=== PATIENT | female | born 1935 | race Caucasian/White ===

== ENCOUNTER 2016-08-31 18:56 | Inpatient (IN) | payer MEDICARE ==
[~2016-08-31] VITALS: Ht 165.1 cm; Wt 66.7 kg
[2016-08-31 19:45] LABS: BASO # 0.1 x10^3/uL (0.0-0.2); BASO % 1 % (0-3); EOS # 0.3 x10^3/uL (0.0-0.7); EOS % 3 % (0-3); HEMATOCRIT 45.3 % (36.0-47.0); LYMPH # 2.8 x10^3/uL (1.0-4.8); LYMPH % 28 % (24-48); MEAN CORPUSCULAR HEMOGLOBIN 31 pg (25-35); MEAN CORPUSCULAR HGB CONC 33 g/dL (31-37); MEAN CORPUSCULAR VOLUME 95 fL (79-100); MONO % 10 % (0-9); NEUT # 5.9 x10^3uL (1.8-7.7); NEUT % 59 % (31-73); PLATELET COUNT 220 x10^3/uL (140-400); RED BLOOD COUNT 4.79 x10^6/uL (3.50-5.40); RED CELL DISTRIBUTION WIDTH 13.6 % (11.5-14.5)
[2016-08-31 19:59] LABS: ALBUMIN 3.5 g/dL (3.4-5.0); ALBUMIN/GLOBULIN RATIO 0.9 (1.0-1.7); CALCIUM 9.1 mg/dL (8.5-10.1); GFR 53.2; POTASSIUM 3.7 mmol/L (3.5-5.1); TOTAL PROTEIN 7.2 g/dL (6.4-8.2)
[2016-08-31 20:24] LABS: BILIRUBIN,URINE NEG (NEG); CLARITY,URINE CLEAR; COLOR,URINE YELLOW; GLUCOSE,URINE NEG (NEG); NITRITE,URINE NEG (NEG); UROBILINOGEN,URINE 0.2 mg/dL (0.2 mg/dL)
[2016-08-31 20:25] LABS: AMORPHOUS SEDIMENT,UR PRESENT /HPF; BACTERIA,URINE 0 /HPF (0-FEW); HYALINE CASTS, URINE OCC /HPF; SQUAMOUS EPITHELIAL CELL,UR OCC /LPF
[2016-08-31] MEDS ORDERED: ZIPRASIDONE IM 20 MG VIAL. IM ONE (20:30)
--- NOTE | 2016-08-31 20:38 | PHYS DOC ---
General Chief Complaint: PSYCH EVALUATION Stated Complaint: PSYCH Time Seen by MD: 19:11 Source: patient, custodial records Problems: History of Present Illness Initial Comments Patient here for geriatric psychiatry screening. Patient is awake and alert but really doesn't know why she is here today. She is not sure how she got here. She is wake, alert, pleasant, and cooperative with commands, but really verbalizes in a nonsensical fashion. She denies any specific medical complaints. She denies any fever or chills, URI symptoms, or cough. She has no chest pain or shortness of breath. No nausea vomiting or abdominal pain. No change amount or bladder habits she denies any focal extremity or neurologic complaints. According to the geriatric psychiatry intake form, the patient. He has dementia. She was combative with staff during routine care today and apparently was referred here for further evaluation. As noted, the patient herself is really disoriented and unable to dissipate any further history. There is no further information available regarding history of present illness, associated factors, increase or decrease in factors, her care rendered for this prior to arrival in the ER. Patient's past medical history according to her custodial record is positive for hypothyroidism, history of pulmonary emboli , TIA, urinary continence, OCD, UT, diverticulitis, arthritis, pancreatitis. She has no dementia as previously described. In reviewing her meds she does not appear to be on any blood thinners. She is a nonsmoker and nonuser of ethanol. It appears that she is able to get up and around independently at the nursing facility. Allergies: Coded Allergies: Sulfa (Sulfonamide Antibiotics) (Verified Allergy, Unknown, 08/31/16) ciprofloxacin (Verified Allergy, Unknown, 08/31/16) Past Medical History Medical History: CVA/TIA/stroke, dementia, heart attack, other Social History Smoker: non-smoker Alcohol: none Review of Systems All Other Systems: Reviewed and Negative Physical Exam General Appearance: WD/WN, no apparent distress Eyes: bilateral eye EOMI, bilateral eye PERRL, bilateral eye normal inspection Ear, Nose, Throat: normal ENT inspection, normal pharynx Neck: full range of motion, supple, normal inspection Respiratory: lungs clear, normal breath sounds, no respiratory distress Cardiovascular: regular rate, rhythm, no edema Gastrointestinal: non tender, soft, no organomegaly Back: no CVA tenderness Extremities: non-tender, no pedal edema 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 Vitals are as noted. Pertinent findings on physical exam shows ears and throat clear. Neck is supple without adenopathy or JVD. There is no meningeal signs. Chest is clear and cardiovascular exams unremarkable. The abdomen is soft and nontender without masses or megaly. There is no peritoneal findings. Back shows no CVA tenderness. Extremities show the patient does seem to have some fecal material embedded under the fingers and toenails. However, there is no redness towards asymmetry or signs of DVT. Neurologic exam finds the patient is awake alert oriented to person only. She is disoriented to time and current events. Cranial nerves II through XII grossly intact. Shunt 5 or 5 = tested. No gross sensory deficits. She is initially not related to the ER. It' s my understanding this represents the patient's baseline mental status with dementia. Remainder of physical exam is clinically unremarkable. Orders, Labs, Meds Old charts note no prior ER visits within the current system. EKG shows sinus 95. Normal axis. No acute ST or T-wave changes. Lab studies today are clinically unremarkable. There is no signs of infection or I abnormality. Chest x-ray shows no acute changes per the emergency physician. 2030 Patient has been resting the ER. She did have one episode of agitation during which [place] was considered, but length the patient actually made her own bed and turn off the light, lay down, has been resting fairly comfortably and cooperative ever since. She is considered medically cleared at this time for admission to the geriatric psychiatry service. KIRT FREITAS MD Aug 31, 2016 19:25
[2016-08-31 21:40] VITALS: BP 145/81
[2016-08-31] MEDS ORDERED: MAG HYDROX/AL HYDROX/SIMETH 30 ML ORAL.SUSP PO PRN (21:45)
[2016-08-31] MEDS ORDERED: ACETAMINOPHEN 325 MG TABLET PO PRN (21:45)
[2016-08-31] MEDS ORDERED: MAGNESIUM HYDROXIDE 2,400 MG/30 ML ORAL.SUSP. PO PRN (21:45)
[2016-08-31] MEDS ORDERED: METHYL SALICYLATE/MENTHOL TOPICAL OINTMENT 29GM TUBE. TP PRN (21:45)
[2016-08-31] MEDS ORDERED: ACET325T21 PO (21:49)
[2016-08-31] MEDS ORDERED: LISI10TA2 PO (21:49)
[2016-08-31] MEDS ORDERED: LORA0.5T PO (21:49)
[2016-08-31] MEDS ORDERED: ASPI81TA2 PO (21:49)
[2016-08-31] MEDS ORDERED: ACET325T9 PO (21:49)
[2016-08-31] MEDS ORDERED: QUET25TA PO (21:49)
[2016-08-31] MEDS ORDERED: MULT-245 PO (21:49)
[2016-08-31] MEDS ORDERED: ATOR20TA58 PO (21:49)
[2016-08-31] MEDS ORDERED: LORAZEPAM 0.5 MG TABLET PO PRN (22:00)
--- NOTE | 2016-08-31 22:50 | EKG ---
[address] [address] Test Date: 2016-08-31 Test Time: 19:06:49 Pat Name: RODNEY LEE Department: Room: Gender: F Pricing/Signage Team Member: CELINE : 1935 Requested By: KIRT FREITAS Order Number: [id number] Reading MD: Measurements Intervals [place] Rate: 95 P: 8 [place]: 150 QRS: 20 QRSD: 88 T: 75 QT: 358 QTc: 453 Interpretive Statements SINUS RHYTHM T ABNORMALITY IN HIGH LATERAL LEADS ABNORMAL ECG RI6.01 Unconfirmed report No previous ECG available for comparison
[2016-08-31] MEDS ORDERED: Influenza vaccine per PROTOCOL. MC PRN (23:45)
[2016-08-31] MEDS ORDERED: PNEUMOCOCCAL VAX SCREEN. MC PRN (23:45)
--- NOTE | 2016-09-01 00:27 | ACF ---
Admission Criteria Forms PSYCHIATRIC DISORDERS Clinical Indications for Inpatient Care (Place 'X' for any and all applicable criteria): Ongoing inpatient care may be needed for ANY ONE of the following(1)(2)(3)(4)(6) (7)(8): [ ]I. Danger to self or others not manageable at lower level of care. [ ]II. Grave disability (eg, inability to perform self care necessary at lower level of care) [X]III. Agitation or inappropriate behavior interfering with care for primary condition (eg, attempting to discontinue lines or drains prematurely, unable to cooperate with respiratory care) [ ]IV. Severe disability or disorder indicated by ALL of the following: [ ]a) Severe behavioral health disorder-related symptoms or condition indicated by ANY ONE of the following: [ ]i) Severe problem with cognition, memory, judgment, or impulse control [ ]ii) Severe clinical manifestations (eg, hallucinations, delusions, other acute psychotic symptoms, brian, extreme agitation or anxiety) [ ]b) Patient management at lower level of care is not feasible until acute intervention or modification is initiated. Extended stay beyond goal length of stay for the primary condition may be indicated when ANY ONE of the following is present: (1)(2)(3)(4): [ ]a) Patient is a danger to self or others and not manageable at lower level of care. [ ]b) Behavior crisis management, including physical or chemical restraints, is required and is not available at a lower level of care. [ ]c) Behavioral symptoms (e.g., agitation, somnolence, inappropriate behavior) are present, and are not manageable at a lower level of care. [ ]d) Patient cannot understand follow-up treatment and crisis plan. [ ]e) Provider and supports are not sufficiently available at lower level of care. [ ]f) Patient cannot participate (e.g., verify absence of plan for harm) and is in needed of monitoring. The original [employer] content created by [employer] has been revised. The portions of the content which have been revised are identified through the use of italic text or in bold, and [facility] [employer] has neither reviewed nor approved the modified material. All other unmodified content is copyright [facility] [employer]. Please see references footnoted in the original [facility] edition 2016 Admission Criteria Met?: Yes DILEEP RODRIGUEZ Sep 01, 2016 00:27
[2016-09-01 05:59] VITALS: BP 149/86
--- NOTE | 2016-09-01 07:40 | RAD ---
EXAM: Chest one view. HISTORY: Cough, altered level of consciousness. COMPARISON: None. FINDINGS: A frontal view of the chest is obtained. A linear opacity in the left base most likely indicates atelectasis. There are milder opacities in the right base. There is no pneumothorax or pleural effusion. The heart is not enlarged. IMPRESSION: 1. Mild basilar atelectasis.
[2016-09-01] MEDS: LISINOPRIL 10 MG TABLET PO SCH (08:23)
[2016-09-01] MEDS: ASPIRIN 81 MG TAB.CHEW PO SCH (08:23)
[2016-09-01] MEDS: MULTIVITAMINS THERAPEUTIC PO SCH (08:23)
[2016-09-01] MEDS: ACETAMINOPHEN 325 MG TABLET PO SCH ×2 (08:24→19:49)
[2016-09-01] MEDS: QUEtiapine 25 MG TABLET. PO SCH ×2 (08:24→19:48)
--- NOTE | 2016-09-01 08:33 | PDOC ---
Exam Bradley Demential Exam: Bradley Note: Please also refer to the separate dictated note~for this date of service dictated separately.~Patient seen individually. Discussed the patient with Nursing staff reviewed the chart.~Reviewed interim history and current functioning. Reviewed vital signs,~Labs/ Radiology~and current medications noted below. Continue current treatment with the changes noted in the dictated addendum note Assessment: Vital Signs: Vital Signs Date Time Temp Pulse Resp B/P Pulse Ox O2 Delivery O2 Flow Rate FiO2 09/01/16 08:23 88 149/86 09/01/16 05:59 97.2 20 93 08/31/16 18:56 Room Air Labs: Laboratory Tests Test 08/31/16 19:20 08/31/16 19:23 08/31/16 19:48 Magnesium Level 1.9mg/dL (1.8-2.4) White Blood Count 10.0x10^3/uL (4.0-11.0) Red Blood Count 4.79x10^6/uL (3.50-5.40) Hemoglobin 15.0g/dL (12.0-15.5) Hematocrit 45.3% (36.0-47.0) Mean Corpuscular Volume 95fL (79-100) Mean Corpuscular Hemoglobin 31pg (25-35) Mean Corpuscular Hemoglobin Concent 33g/dL (31-37) Red Cell Distribution Width 13.6% (11.5-14.5) Platelet Count 220x10^3/uL (140-400) Neutrophils (%) (Auto) 59% (31-73) Lymphocytes (%) (Auto) 28% (24-48) Monocytes (%) (Auto) 10% (0-9) H Eosinophils (%) (Auto) 3% (0-3) Basophils (%) (Auto) 1% (0-3) Neutrophils # (Auto) 5.9x10^3uL (1.8-7.7) Lymphocytes # (Auto) 2.8x10^3/uL (1.0-4.8) Monocytes # (Auto) 1.0x10^3/uL (0.0-1.1) Eosinophils # (Auto) 0.3x10^3/uL (0.0-0.7) Basophils # (Auto) 0.1x10^3/uL (0.0-0.2) Sodium Level 143mmol/L (136-145) Potassium Level 3.7mmol/L (3.5-5.1) Chloride Level 106mmol/L (98-107) Carbon Dioxide Level 25mmol/L (21-32) Anion Gap 12 (6-14) Blood Urea Nitrogen 25mg/dL (7-20) H Creatinine 1.0mg/dL (0.6-1.0) Estimated GFR (Cockcroft-Gault) 53.2 BUN/Creatinine Ratio 25 (6-20) H Glucose Level 208mg/dL (70-99) H Calcium Level 9.1mg/dL (8.5-10.1) Total Bilirubin 1.0mg/dL (0.2-1.0) Aspartate Amino Transferase (AST) 10U/L (15-37) L Alanine Aminotransferase (ALT) 27U/L (14-59) Alkaline Phosphatase 98U/L (46-116) Ammonia 16mcmol/L (11-34) Total Protein 7.2g/dL (6.4-8.2) Albumin 3.5g/dL (3.4-5.0) Albumin/Globulin Ratio 0.9 (1.0-1.7) L Acetone Level Neg (NEG) Urine Collection Type U cath Urine Color Yellow Urine Clarity Clear Urine pH 5.5 Urine Specific [place] 1.025 Urine Protein Trace (NEG-TRACE) Urine Glucose (UA) Negmg/dL (NEG) Urine Ketones (Stick) Tracemg/dL (NEG) Urine Blood Mod (NEG) Urine Nitrite Neg (NEG) Urine Bilirubin Neg (NEG) Urine Urobilinogen Dipstick 0.2mg/dL (0.2 mg/dL) Urine Leukocyte Esterase Neg (NEG) Urine RBC 1-2/HPF (0-2) Urine WBC 1-4/HPF (0-4) Urine Squamous Epithelial Cells Occ/LPF Urine Amorphous Sediment Present/HPF Urine Bacteria 0/HPF (0-FEW) Urine Hyaline Casts Occ/HPF Urine Mucus Mod/LPF Current Medications: Meds: Current Medications Ziprasidone (Geodon Im) 10 mg 1X ONCE IM Last administered on 08/31/16t 20:55 ; Start 08/31/16 at 20:30; Stop 08/31/16 at 20:31; Status DC Acetaminophen (Tylenol) 650 mg PRN Q6HRS PRN PO PAIN / TEMP; Start 08/31/16 at 21:45 Multi-Ingredient Ointment (Analgesic [place]) 1 regino PRN QID PRN TP MUSCLE PAIN; Start 08/31/16 at 21:45 Al Hydroxide/Mg Hydroxide (Mylanta Plus Xs) 15 ml PRN AFTMEALHC PRN PO DYSPEPSIA; Start 08/31/16 at 21:45 Magnesium Hydroxide (Milk Of Magnesia) 2,400 mg PRN QHS PRN PO CONSTIPATION; Start 08/31/16 at 21:45 Lorazepam (Ativan) 0.5 mg PRN Q6HRS PRN PO ANXIETY; Start 08/31/16 at 22:00 Quetiapine Fumarate (SEROquel) 25 mg BID PO Last administered on 09/01/16 08: 24; Start 09/01/16 at 09:00 Pneumoccal 13-Valent Conj Vacc (Prevnar 13) 0.5 ml ONCE ONCE VAX IM ; Start at 09:00; Stop 09/01/16 at 09:01; Status UNV Influenza Virus Vaccine Quadrival (Fluarix Quad [id number] Syringe) 0.5 ml ONCE ONCE VAX IM ; Start 09/01/16 at 09:00; Stop 09/01/16 at 09:01 Info (FLU VACCINE per PROTOCOL) 1 ea PRN 1X PRN MC PER PROTOCOL; Start at 23:45; Status Cancel Pneumococcal Polyvalent Vaccine (Do NOT chart on this entry -- for MONITORING) 1 each PRN 1X PRN MC SEE COMMENTS; Start 08/31/16 at 23:45; Status Cancel Pneumococcal Polyvalent Vaccine (Pneumovax 23) 0.5 ml ONCE ONCE VAX IM ; Start 09/01/16 at 09:00; Stop 09/01/16 at 09:01 Acetaminophen (Tylenol) 650 mg Q12HR PO Last administered on 09/01/16 08:24; Start 09/01/16 at 09:00 Aspirin (Children'S Aspirin) 81 mg DAILY PO Last administered on 09/01/16 08: 23; Start 09/01/16 at 09:00 Atorvastatin Calcium (Lipitor) 20 mg QHS PO ; Start 09/01/16 at 21:00 Lisinopril (Prinivil) 10 mg DAILY PO Last administered on 09/01/16 08:23; Start 09/01/16 at 09:00 Multivitamins (Thera-Vit) 1 tab DAILY PO Last administered on 09/01/16 08:23; Start 09/01/16 at 09:00 Active Scripts Active Reported Lorazepam 0.5 Mg Tablet 0.5 Mg PO PRN Q6HRS PRN Acetaminophen 325 Mg Tablet 650 Mg PO PRN Q4HRS PRN Quetiapine Fumarate 25 Mg Tablet 25 Mg PO BID Multi Vitamin Daily (Multivitamin) 1 Each Tablet 1 Each PO DAILY Lisinopril 10 Mg Tablet 10 Mg PO DAILY Atorvastatin Calcium 20 Mg Tablet 20 Mg PO QHS Aspirin 81 Mg Tab.chew 81 Mg PO DAILY Tylenol (Acetaminophen) 325 Mg Tablet 650 Mg PO Q12HR Diagnosis: Problems: (1) Agitation KRISSY MONTES MD Sep 01, 2016 08:33
[2016-09-01] MEDS ORDERED: PNEUMOC CONJ VACC 23-VALENT 0.5 ML VIAL. VAX IM ONE (09:00)
[2016-09-01] MEDS ORDERED: PNEUMOC CONJ VACC 13-VALENT 0.5 ML DISP.SYRIN. VAX IM ONE (09:00)
[2016-09-01] MEDS ORDERED: FLU VACC QUAD 2016-17 (36MOS+)/PF 0.5 ML SYRINGE. VAX IM ONE (09:00)
[2016-09-01] MEDS: OLANZAPINE ZYDIS 5 MG TAB.RAPDIS PO PRN ×2 (13:30→20:17)
[2016-09-01 13:36] LABS: IRON,SERUM 41 ug/dL (50-170)
--- NOTE | 2016-09-01 14:33 | HP ---
ADMIT DATE: 08/31/2016 REASON FOR ADMISSION TO THE SENIOR BEHAVIORAL UNIT: This is an 81-year-old female who came from a Memory Care Unit where she was combative with staff during care, refusing all care, refusing medications, agitated and confused. Onset of symptoms not stated current medical problems. PAST MEDICAL HISTORY: Hyperthyroidism, pulmonary embolism, chronic kidney disease, obsessive-compulsive disorder, myocardial infarction, past history of diverticulitis and pancreatitis and a vertebral column fracture, TIAs, urinary incontinence. ALLERGIES: SULFA AND CIPRO. MEDICATIONS: Reviewed and does not appear to be any new interventions. FAMILY HISTORY: Unknown. HABITS: The patient states she did not smoke or drink. She could not remember where she grew up. [place] REVIEW OF SYSTEMS: The patient states she does not have any medical problems and she feels fine. PHYSICAL EXAMINATION: VITAL SIGNS: Blood pressure 149/86, temperature 97.2, pulse 88, respirations 20, pulse ox 93% on room air. HEENT: TMs, her hearing appears normal. Her eyes are clear. Nose is patent. Her throat was clear. NECK: Supple, without adenopathy. LUNGS: Clear to auscultation. CARDIOVASCULAR: Regular rhythm and rate. ABDOMEN: Soft, nontender. EXTREMITIES: Without edema. SKIN: Dry. MUSCULOSKELETAL: She does not pass to get up and go test, but is able to stand up, albeit wobbly from a sitting position. Gait was not examined. NEUROLOGIC: No tremors. She is able to follow directions, could do [id number] slowly, cannot identify two fingers in a central field. Electronic Calibration Technician strength was strong. Her muscle tone was fairly good. Cognitively, she did get a little agitated with all the questions, but was calm and cooperative most of the time. LABORATORY DATA: Glucose is 208. ASSESSMENT: 1. Dementia with behavior disturbance. 2. Hyperglycemia without a history of diabetes. 3. Mild iron deficiency. 4. Fall risk. 5. History of hypothyroidism. PLAN: Follow along with Dr. Pal. Treat her medical conditions. We will get on top of the glucose. NICOL COLLAZO DO DR: ANA/bishop JOB#: [id number] / [id number]
[2016-09-01 15:38] VITALS: BP 146/73
[2016-09-01 17:12] LABS: T3 TOTAL 119 ng/dL (71-180)
[2016-09-01] MEDS: ATORVASTATIN CALCIUM 20 MG TABLET PO SCH (20:05)
[2016-09-02 01:09] LABS: VITAMIN D25(OH)TOTAL 20.6 ng/mL (30.0-100.0)
[2016-09-02 02:07] LABS: HEMOGLOBIN A1C 6.9 % (4.8-5.6)
[2016-09-02] MEDS: MULTIVITAMINS THERAPEUTIC PO SCH (07:33)
[2016-09-02] MEDS: QUEtiapine 25 MG TABLET. PO SCH ×2 (07:33→19:37)
[2016-09-02] MEDS: ACETAMINOPHEN 325 MG TABLET PO SCH ×2 (07:34→19:37)
[2016-09-02] MEDS: LISINOPRIL 10 MG TABLET PO SCH (07:34)
[2016-09-02] MEDS: ASPIRIN 81 MG TAB.CHEW PO SCH (07:34)
--- NOTE | 2016-09-02 08:30 | PDOC ---
Exam Bradley Demential Exam: Bradley Note: Please also refer to the separate dictated note~for this date of service dictated separately.~Patient seen individually. Discussed the patient with Nursing staff reviewed the chart.~Reviewed interim history and current functioning. Reviewed vital signs,~Labs/ Radiology~and current medications noted below. Continue current treatment with the changes noted in the dictated addendum note Assessment: Vital Signs: Vital Signs Date Time Temp Pulse Resp B/P Pulse Ox O2 Delivery O2 Flow Rate FiO2 09/02/16 07:34 115 146/73 09/01/16 15:38 98.8 18 92 08/31/16 18:56 Room Air I&O Intake and Output 09/02/16 07:00 Intake Total 960 ml Balance 960 ml Intake Oral 960 ml Current Medications: Meds: Current Medications Ziprasidone (Geodon Im) 10 mg 1X ONCE IM Last administered on 08/31/16 20:55 ; Start 08/31/16 at 20:30; Stop 08/31/16 at 20:31; Status DC Acetaminophen (Tylenol) 650 mg PRN Q6HRS PRN PO PAIN / TEMP; Start 08/31/16 at 21:45 Multi-Ingredient Ointment (Analgesic [place]) 1 regino PRN QID PRN TP MUSCLE PAIN; Start 08/31/16 at 21:45 Al Hydroxide/Mg Hydroxide (Mylanta Plus Xs) 15 ml PRN AFTMEALHC PRN PO DYSPEPSIA; Start 08/31/16 at 21:45 Magnesium Hydroxide (Milk Of Magnesia) 2,400 mg PRN QHS PRN PO CONSTIPATION; Start 08/31/16 at 21:45 Lorazepam (Ativan) 0.5 mg PRN Q6HRS PRN PO ANXIETY; Start 08/31/16 at 22:00 Quetiapine Fumarate (SEROquel) 25 mg BID PO Last administered on 09/02/16 07: 33; Start 09/01/16 at 09:00 Pneumoccal 13-Valent Conj Vacc (Prevnar 13) 0.5 ml ONCE ONCE VAX IM ; Start at 09:00; Stop 09/01/16 at 09:01; Status UNV Influenza Virus Vaccine Quadrival (Fluarix Quad [id number] Syringe) 0.5 ml ONCE ONCE VAX IM Last administered on 09/01/16 11:36; Start 09/01/16 at 09:00; Stop 09/01/16 at 09:01; Status DC Info (FLU VACCINE per PROTOCOL) 1 ea PRN 1X PRN MC PER PROTOCOL; Start at 23:45; Status Cancel Pneumococcal Polyvalent Vaccine (Do NOT chart on this entry -- for MONITORING) 1 each PRN 1X PRN MC SEE COMMENTS; Start 08/31/16 at 23:45; Status Cancel Pneumococcal Polyvalent Vaccine (Pneumovax 23) 0.5 ml ONCE ONCE VAX IM Last administered on 09/01/16 11:49; Start 09/01/16 at 09:00; Stop 09/01/16 at 09:01 ; Status DC Acetaminophen (Tylenol) 650 mg Q12HR PO Last administered on 09/02/16 07:34; Start 09/01/16 at 09:00 Aspirin (Children'S Aspirin) 81 mg DAILY PO Last administered on 09/02/16 07: 34; Start 09/01/16 at 09:00 Atorvastatin Calcium (Lipitor) 20 mg QHS PO Last administered on 09/01/16 20: 05; Start 09/01/16 at 21:00 Lisinopril (Prinivil) 10 mg DAILY PO Last administered on 09/02/16 07:34; Start 09/01/16 at 09:00 Multivitamins (Thera-Vit) 1 tab DAILY PO Last administered on 09/02/16 07:33; Start 09/01/16 at 09:00 Olanzapine (Zyprexa Zydis) 2.5 mg PRN Q2HR PRN PO PSYCHOSIS Last administered on 09/01/16 20:17; Start 09/01/16 at 13:15 Active Scripts Active Reported Lorazepam 0.5 Mg Tablet 0.5 Mg PO PRN Q6HRS PRN Acetaminophen 325 Mg Tablet 650 Mg PO PRN Q4HRS PRN Quetiapine Fumarate 25 Mg Tablet 25 Mg PO BID Multi Vitamin Daily (Multivitamin) 1 Each Tablet 1 Each PO DAILY Lisinopril 10 Mg Tablet 10 Mg PO DAILY Atorvastatin Calcium 20 Mg Tablet 20 Mg PO QHS Aspirin 81 Mg Tab.chew 81 Mg PO DAILY Tylenol (Acetaminophen) 325 Mg Tablet 650 Mg PO Q12HR Diagnosis: Problems: (1) Agitation KRISSY MONTES MD Sep 02, 2016 08:30
[2016-09-02 16:14] VITALS: BP 138/77
[2016-09-02] MEDS: ATORVASTATIN CALCIUM 20 MG TABLET PO SCH (19:37)
[2016-09-03 06:51] VITALS: BP 146/82
[2016-09-03] MEDS: ACETAMINOPHEN 325 MG TABLET PO SCH ×2 (07:33→19:45)
[2016-09-03] MEDS: MULTIVITAMINS THERAPEUTIC PO SCH (07:33)
[2016-09-03] MEDS: LISINOPRIL 10 MG TABLET PO SCH (07:33)
[2016-09-03] MEDS: QUEtiapine 25 MG TABLET. PO SCH ×2 (07:33→19:44)
[2016-09-03] MEDS: ASPIRIN 81 MG TAB.CHEW PO SCH (07:33)
[2016-09-03] MEDS: OLANZAPINE ZYDIS 5 MG TAB.RAPDIS PO PRN ×2 (07:35→21:02)
[2016-09-03] MEDS: CHOLECALCIFEROL (VITAMIN D3) 50,000 UNIT CAPSULE PO SCH (07:35)
--- NOTE | 2016-09-03 08:29 | PDOC ---
Exam Bradley Demential Exam: Bradley Note: Please also refer to the separate dictated note~for this date of service dictated separately.~Patient seen individually. Discussed the patient with Nursing staff reviewed the chart.~Reviewed interim history and current functioning. Reviewed vital signs,~Labs/ Radiology~and current medications noted below. Continue current treatment with the changes noted in the dictated addendum note Assessment: Vital Signs: Vital Signs Date Time Temp Pulse Resp B/P Pulse Ox O2 Delivery O2 Flow Rate FiO2 09/03/16 07:33 82 146/82 09/03/16 06:51 97.3 14 94 Room Air I&O Intake and Output 09/03/16 07:00 Intake Total 845 ml Balance 845 ml Intake Oral 845 ml Current Medications: Meds: Current Medications Ziprasidone (Geodon Im) 10 mg 1X ONCE IM Last administered on 08/31/16 20:55 ; Start 08/31/16 at 20:30; Stop 08/31/16 at 20:31; Status DC Acetaminophen (Tylenol) 650 mg PRN Q6HRS PRN PO PAIN / TEMP; Start 08/31/16 at 21:45 Multi-Ingredient Ointment (Analgesic [place]) 1 regino PRN QID PRN TP MUSCLE PAIN; Start 08/31/16 at 21:45 Al Hydroxide/Mg Hydroxide (Mylanta Plus Xs) 15 ml PRN AFTMEALHC PRN PO DYSPEPSIA; Start 08/31/16 at 21:45 Magnesium Hydroxide (Milk Of Magnesia) 2,400 mg PRN QHS PRN PO CONSTIPATION; Start 08/31/16 at 21:45 Lorazepam (Ativan) 0.5 mg PRN Q6HRS PRN PO ANXIETY; Start 08/31/16 at 22:00 Quetiapine Fumarate (SEROquel) 25 mg BID PO Last administered on 09/03/16 07: 33; Start 09/01/16 at 09:00 Pneumoccal 13-Valent Conj Vacc (Prevnar 13) 0.5 ml ONCE ONCE VAX IM ; Start at 09:00; Stop 09/01/16 at 09:01; Status UNV Influenza Virus Vaccine Quadrival (Fluarix Quad [id number] Syringe) 0.5 ml ONCE ONCE VAX IM Last administered on 09/01/16 11:36; Start 09/01/16 at 09:00; Stop 09/01/16 at 09:01; Status DC Info (FLU VACCINE per PROTOCOL) 1 ea PRN 1X PRN MC PER PROTOCOL; Start at 23:45; Status Cancel Pneumococcal Polyvalent Vaccine (Do NOT chart on this entry -- for MONITORING) 1 each PRN 1X PRN MC SEE COMMENTS; Start 08/31/16 at 23:45; Status Cancel Pneumococcal Polyvalent Vaccine (Pneumovax 23) 0.5 ml ONCE ONCE VAX IM Last administered on 09/01/16 11:49; Start 09/01/16 at 09:00; Stop 09/01/16 at 09:01 ; Status DC Acetaminophen (Tylenol) 650 mg Q12HR PO Last administered on 09/03/16 07:33; Start 09/01/16 at 09:00 Aspirin (Children'S Aspirin) 81 mg DAILY PO Last administered on 09/03/16 07: 33; Start 09/01/16 at 09:00 Atorvastatin Calcium (Lipitor) 20 mg QHS PO Last administered on 09/02/16 19: 37; Start 09/01/16 at 21:00 Lisinopril (Prinivil) 10 mg DAILY PO Last administered on 09/03/16 07:33; Start 09/01/16 at 09:00 Multivitamins (Thera-Vit) 1 tab DAILY PO Last administered on 09/03/16 07:33; Start 09/01/16 at 09:00 Olanzapine (Zyprexa Zydis) 2.5 mg PRN Q2HR PRN PO PSYCHOSIS Last administered on 09/03/16 07:35; Start 09/01/16 at 13:15 Vitamin D (Vitamin D3) 50,000 unit WEEKLY PO Last administered on 09/03/16 07: 35; Start 09/03/16 at 09:00; Stop 10/29/16 at 09:01 Active Scripts Active Reported Lorazepam 0.5 Mg Tablet 0.5 Mg PO PRN Q6HRS PRN Acetaminophen 325 Mg Tablet 650 Mg PO PRN Q4HRS PRN Quetiapine Fumarate 25 Mg Tablet 25 Mg PO BID Multi Vitamin Daily (Multivitamin) 1 Each Tablet 1 Each PO DAILY Lisinopril 10 Mg Tablet 10 Mg PO DAILY Atorvastatin Calcium 20 Mg Tablet 20 Mg PO QHS Aspirin 81 Mg Tab.chew 81 Mg PO DAILY Tylenol (Acetaminophen) 325 Mg Tablet 650 Mg PO Q12HR KRISSY MONTES MD Sep 03, 2016 08:29
--- NOTE | 2016-09-03 10:03 | HP ---
ADMIT DATE: 09/01/2016 This is a late entry for date of service 09/01/2016 when I met with the patient individually and reviewed information from the [facility]. Discussed with nursing staff and reviewed the chart IDENTIFYING DATA: The patient is an 81-year-old female referred to us from [facility] where she resides referred by Dr. Shin, her primary care physician on account of worsening confusion within the context of her diagnosis of dementia. She had been combative with staff during cares. She was refusing all her medications, agitated, combative, and confused. She had failed outpatient psychiatric interventions and referred for inpatient psychiatric stabilization. CHIEF COMPLAINT: "No." The patient is quite nonverbal consequent to her dementia. HISTORY OF PRESENT ILLNESS: The patient has a history of dementia, Alzheimer's vascular type. [facility], but recently getting more agitated with marked mood lability, irritability, being depressed, paranoid, and delusional. No clear history of bipolar disorder, suicidal, or homicidal ideation. PAST PSYCHIATRIC HISTORY: As above. PAST MEDICAL HISTORY: Positive for hypothyroidism, history of pulmonary embolism, diabetes mellitus, TIA, stress incontinence, status post ME, diverticulitis, glaucoma, B12 deficiency, degenerative joint disease, and history of pancreatitis. She is on Accu-Cheks a.c. and at bedtime. Takes her meds crushed, hidden, ambulates ____. When seen in the ER, UA was questionable, but final culture is negative. CODE STATUS: DNR. DRUG ALLERGIES: SULFA and CIPRO. FAMILY HISTORY: Noncontributory. SOCIAL HISTORY: No history of alcohol or drug abuse, physical, sexual, or elder abuse. She is not known to be a perpetrator. PHYSICAL EXAMINATION: VITAL SIGNS: Temperature 97.2, pulse 88, and BP 149/86. MENTAL STATUS EXAMINATION: The patient is oriented to herself, not very verbal. Insight, judgment, recent and remote memory, attention, concentration, and fund of knowledge poor, consistent with her diagnosis. LABORATORY DATA: Reviewed. REVIEW OF SYSTEMS: No eye, ENT, CV, , or pulmonary system symptoms on review. Reliability poor. IMPRESSION: Major neurocognitive disorder, Alzheimer, vascular with depression, delusion, behavioral disturbance; anxiety disorder, unspecified; and impulse control disorder, unspecified. Rest diagnosis is as above. PL[facility] I will see the patient daily individually from a psychiatric standpoint. Request medical follow up with Dr. Valdez/Dr. Ward. Continue the patient on her current psychotropics, which include Seroquel 25 mg b.i.d., Ativan 0.5 q.6 hours p.r.n., Zyprexa Zydis was added p.r.n. and it has to be hidden in Oreos to help with compliance. We will observe the patient's baseline and then make further adjustments as clinically indicated. KRISSY MONTES MD DR: STEVE/bishop JOB#: [id number] / [id number]
--- NOTE | 2016-09-03 13:14 | PN ---
DATE: 09/02/2016 This is a late entry for 09/02/2016, covers elements not covered in my initial note. SUBJECTIVE: The patient has been agitated, extremely confused, resistive to care, gets into other patient's rooms. She would not take p.r.n.'s hidden in food, but did take the a.m. medications. REVIEW OF SYSTEMS: No eye, ENT, CV, , pulmonary system symptoms on review. Reliability poor. MENTAL STATUS EXAM: Oriented to herself. Insight, judgment, recent and remote memory, attention, concentration, fund of knowledge poor, consistent with her diagnosis. The patient was not very verbally interactive with me. LABORATORY DATA: Reviewed. IMPRESSION: Major neurocognitive disorder, Alzheimer, vascular with depression, delusion, behavioral disturbance; anxiety disorder, unspecified; impulse control disorder, unspecified. PLAN: Continue current psychotropics, Seroquel 25 b.i.d., Ativan p.r.n., Zyprexa Zydis p.r.n. Start Lexapro liquid 5 mg a day. Adjust further as clinically indicated. KRISSY MONTES MD DR: STEVE/bishop JOB#: [id number] / [id number]
[2016-09-03 15:46] VITALS: BP 153/74
[2016-09-03] MEDS: ATORVASTATIN CALCIUM 20 MG TABLET PO SCH (19:44)
[2016-09-04 06:06] VITALS: BP 130/70
[2016-09-04] MEDS: QUEtiapine 25 MG TABLET. PO SCH ×2 (07:47→19:53)
[2016-09-04] MEDS: ASPIRIN 81 MG TAB.CHEW PO SCH (07:48)
[2016-09-04] MEDS: MULTIVITAMINS THERAPEUTIC PO SCH (07:48)
[2016-09-04] MEDS: ACETAMINOPHEN 325 MG TABLET PO SCH ×2 (07:48→19:53)
[2016-09-04] MEDS: LISINOPRIL 10 MG TABLET PO SCH (07:48)
[2016-09-04] MEDS: ESCITALOPRAM 5 MG TABLET PO SCH (09:01)
[2016-09-04 09:08] LABS: RPR REFLEX Non Reactive (Non Reactive)
--- NOTE | 2016-09-04 09:12 | PDOC ---
Exam Bradley Demential Exam: Bradley Note: Please also refer to the separate dictated note~for this date of service dictated separately.~Patient seen individually. Discussed the patient with Nursing staff reviewed the chart.~Reviewed interim history and current functioning. Reviewed vital signs,~Labs/ Radiology~and current medications noted below. Continue current treatment with the changes noted in the dictated addendum note Assessment: Vital Signs: Vital Signs Date Time Temp Pulse Resp B/P Pulse Ox O2 Delivery O2 Flow Rate FiO2 09/04/16 07:48 81 130/70 09/04/16 06:06 97.8 18 96 Room Air I&O Intake and Output 09/04/16 07:00 Intake Total 960 ml Balance 960 ml Intake Oral 960 ml Current Medications: Meds: Current Medications Ziprasidone (Geodon Im) 10 mg 1X ONCE IM Last administered on 08/31/16 20:55 ; Start 08/31/16 at 20:30; Stop 08/31/16 at 20:31; Status DC Acetaminophen (Tylenol) 650 mg PRN Q6HRS PRN PO PAIN / TEMP; Start 08/31/16 at 21:45 Multi-Ingredient Ointment (Analgesic [place]) 1 regino PRN QID PRN TP MUSCLE PAIN; Start 08/31/16 at 21:45 Al Hydroxide/Mg Hydroxide (Mylanta Plus Xs) 15 ml PRN AFTMEALHC PRN PO DYSPEPSIA; Start 08/31/16 at 21:45 Magnesium Hydroxide (Milk Of Magnesia) 2,400 mg PRN QHS PRN PO CONSTIPATION; Start 08/31/16 at 21:45 Lorazepam (Ativan) 0.5 mg PRN Q6HRS PRN PO ANXIETY; Start 08/31/16 at 22:00 Quetiapine Fumarate (SEROquel) 25 mg BID PO Last administered on 09/04/16 07: 47; Start 09/01/16 at 09:00 Pneumoccal 13-Valent Conj Vacc (Prevnar 13) 0.5 ml ONCE ONCE VAX IM ; Start at 09:00; Stop 09/01/16 at 09:01; Status UNV Influenza Virus Vaccine Quadrival (Fluarix Quad [id number] Syringe) 0.5 ml ONCE ONCE VAX IM Last administered on 09/01/16 11:36; Start 09/01/16 at 09:00; Stop 09/01/16 at 09:01; Status DC Info (FLU VACCINE per PROTOCOL) 1 ea PRN 1X PRN MC PER PROTOCOL; Start at 23:45; Status Cancel Pneumococcal Polyvalent Vaccine (Do NOT chart on this entry -- for MONITORING) 1 each PRN 1X PRN MC SEE COMMENTS; Start 08/31/16 at 23:45; Status Cancel Pneumococcal Polyvalent Vaccine (Pneumovax 23) 0.5 ml ONCE ONCE VAX IM Last administered on 09/01/16 11:49; Start 09/01/16 at 09:00; Stop 09/01/16 at 09:01 ; Status DC Acetaminophen (Tylenol) 650 mg Q12HR PO Last administered on 09/04/16 07:48; Start 09/01/16 at 09:00 Aspirin (Children'S Aspirin) 81 mg DAILY PO Last administered on 09/04/16 07: 48; Start 09/01/16 at 09:00 Atorvastatin Calcium (Lipitor) 20 mg QHS PO Last administered on 09/03/16 19: 44; Start 09/01/16 at 21:00 Lisinopril (Prinivil) 10 mg DAILY PO Last administered on 09/04/16 07:48; Start 09/01/16 at 09:00 Multivitamins (Thera-Vit) 1 tab DAILY PO Last administered on 09/04/16 07:48; Start 09/01/16 at 09:00 Olanzapine (Zyprexa Zydis) 2.5 mg PRN Q2HR PRN PO PSYCHOSIS Last administered on 09/03/16 21:02; Start 09/01/16 at 13:15 Vitamin D (Vitamin D3) 50,000 unit WEEKLY PO Last administered on 09/03/16 07: 35; Start 09/03/16 at 09:00; Stop 10/29/16 at 09:01 Escitalopram Oxalate (Lexapro) 5 mg DAILY PO Last administered on 09/04/16 09: 01; Start 09/04/16 at 09:00 Active Scripts Active Reported Lorazepam 0.5 Mg Tablet 0.5 Mg PO PRN Q6HRS PRN Acetaminophen 325 Mg Tablet 650 Mg PO PRN Q4HRS PRN Quetiapine Fumarate 25 Mg Tablet 25 Mg PO BID Multi Vitamin Daily (Multivitamin) 1 Each Tablet 1 Each PO DAILY Lisinopril 10 Mg Tablet 10 Mg PO DAILY Atorvastatin Calcium 20 Mg Tablet 20 Mg PO QHS Aspirin 81 Mg Tab.chew 81 Mg PO DAILY Tylenol (Acetaminophen) 325 Mg Tablet 650 Mg PO Q12HR Diagnosis: Problems: (1) Agitation KRISSY MONTES MD Sep 04, 2016 09:12
[2016-09-04 15:42] VITALS: BP 160/82
[2016-09-04] MEDS: ATORVASTATIN CALCIUM 20 MG TABLET PO SCH (19:53)
--- NOTE | 2016-09-05 04:55 | PN ---
DATE: 09/03/2016 PSYCHIATRIC PROGRESS NOTE This is a late entry for 09/03/2016, covers elements not covered in my initial note. SUBJECTIVE: The patient was seen individually the evening of 09/03/2016. Discussed with staff, reviewed the chart. Per nursing report, the patient has been combative with cares, throwing things in her room, had to be placed in the locked hallway to prevent her hurting others. REVIEW OF SYSTEMS: No CV, , pulmonary, eye, ENT system symptoms on review. Reliability poor. MENTAL STATUS EXAM: Oriented to herself. Insight, judgment, recent and remote memory, attention, concentration, fund of knowledge poor, consistent with her diagnosis mentioned in my initial note. DIAGNOSES: Major neurocognitive disorder, Alzheimer, vascular with depression, delusion, behavioral disturbance; anxiety disorder, unspecified; impulse control disorder, unspecified. PLAN: Increase Seroquel from 25 mg twice a day to 25 mg 3 times a day. Maintain Ativan and Zyprexa p.r.n. and Lexapro 5 mg a day. Adjust further as clinically indicated. KRISSY MONTES MD DR: STEVE/bishop JOB#: [id number] / [id number]
[2016-09-05 06:13] VITALS: BP 168/90
[2016-09-05] MEDS: ESCITALOPRAM 5 MG TABLET PO SCH (07:41)
[2016-09-05] MEDS: LISINOPRIL 10 MG TABLET PO SCH (07:41)
[2016-09-05] MEDS: MULTIVITAMINS THERAPEUTIC PO SCH (07:42)
[2016-09-05] MEDS: QUEtiapine 25 MG TABLET. PO SCH ×3 (07:43→19:23)
[2016-09-05] MEDS: ACETAMINOPHEN 325 MG TABLET PO SCH ×2 (07:43→19:24)
[2016-09-05] MEDS: ASPIRIN 81 MG TAB.CHEW PO SCH (07:44)
--- NOTE | 2016-09-05 09:52 | PDOC ---
Exam Bradley Demential Exam: Bradley Note: Please also refer to the separate dictated note~for this date of service dictated separately.~Patient seen individually. Discussed the patient with Nursing staff reviewed the chart.~Reviewed interim history and current functioning. Reviewed vital signs,~Labs/ Radiology~and current medications noted below. Continue current treatment with the changes noted in the dictated addendum note Assessment: Vital Signs: Vital Signs Date Time Temp Pulse Resp B/P Pulse Ox O2 Delivery O2 Flow Rate FiO2 09/05/16 07:41 88 168/90 09/05/16 06:13 97.2 18 94 09/04/16 06:06 Room Air I&O Intake and Output 09/05/16 07:00 Intake Total 840 ml Balance 840 ml Intake Oral 840 ml Current Medications: Meds: Current Medications Ziprasidone (Geodon Im) 10 mg 1X ONCE IM Last administered on 08/31/16 20:55 ; Start 08/31/16 at 20:30; Stop 08/31/16 at 20:31; Status DC Acetaminophen (Tylenol) 650 mg PRN Q6HRS PRN PO PAIN / TEMP; Start 08/31/16 at 21:45 Multi-Ingredient Ointment (Analgesic [place]) 1 regino PRN QID PRN TP MUSCLE PAIN; Start 08/31/16 at 21:45 Al Hydroxide/Mg Hydroxide (Mylanta Plus Xs) 15 ml PRN AFTMEALHC PRN PO DYSPEPSIA; Start 08/31/16 at 21:45 Magnesium Hydroxide (Milk Of Magnesia) 2,400 mg PRN QHS PRN PO CONSTIPATION; Start 08/31/16 at 21:45 Lorazepam (Ativan) 0.5 mg PRN Q6HRS PRN PO ANXIETY; Start 08/31/16 at 22:00 Quetiapine Fumarate (SEROquel) 25 mg BID PO Last administered on 09/04/16 07: 47; Start 09/01/16 at 09:00; Stop 09/04/16 at 15:44; Status DC Pneumoccal 13-Valent Conj Vacc (Prevnar 13) 0.5 ml ONCE ONCE VAX IM ; Start at 09:00; Stop 09/01/16 at 09:01; Status UNV Influenza Virus Vaccine Quadrival (Fluarix Quad [id number] Syringe) 0.5 ml ONCE ONCE VAX IM Last administered on 09/01/16 11:36; Start 09/01/16 at 09:00; Stop 09/01/16 at 09:01; Status DC Info (FLU VACCINE per PROTOCOL) 1 ea PRN 1X PRN MC PER PROTOCOL; Start at 23:45; Status Cancel Pneumococcal Polyvalent Vaccine (Do NOT chart on this entry -- for MONITORING) 1 each PRN 1X PRN MC SEE COMMENTS; Start 08/31/16 at 23:45; Status Cancel Pneumococcal Polyvalent Vaccine (Pneumovax 23) 0.5 ml ONCE ONCE VAX IM Last administered on 09/01/16 11:49; Start 09/01/16 at 09:00; Stop 09/01/16 at 09:01 ; Status DC Acetaminophen (Tylenol) 650 mg Q12HR PO Last administered on 09/05/16 07:43; Start 09/01/16 at 09:00 Aspirin (Children'S Aspirin) 81 mg DAILY PO Last administered on 09/05/16 07: 44; Start 09/01/16 at 09:00 Atorvastatin Calcium (Lipitor) 20 mg QHS PO Last administered on 09/04/16 19: 53; Start 09/01/16 at 21:00 Lisinopril (Prinivil) 10 mg DAILY PO Last administered on 09/05/16 07:41; Start 09/01/16 at 09:00 Multivitamins (Thera-Vit) 1 tab DAILY PO Last administered on 09/05/16 07:42; Start 09/01/16 at 09:00 Olanzapine (Zyprexa Zydis) 2.5 mg PRN Q2HR PRN PO PSYCHOSIS Last administered on 09/03/16 21:02; Start 09/01/16 at 13:15 Vitamin D (Vitamin D3) 50,000 unit WEEKLY PO Last administered on 09/03/16 07: 35; Start 09/03/16 at 09:00; Stop 10/29/16 at 09:01 Escitalopram Oxalate (Lexapro) 5 mg DAILY PO Last administered on 09/05/16 07: 41; Start 09/04/16 at 09:00 Quetiapine Fumarate (SEROquel) 25 mg TID PO Last administered on 09/05/16 07: 43; Start 09/04/16 at 21:00 Active Scripts Active Reported Lorazepam 0.5 Mg Tablet 0.5 Mg PO PRN Q6HRS PRN Acetaminophen 325 Mg Tablet 650 Mg PO PRN Q4HRS PRN Quetiapine Fumarate 25 Mg Tablet 25 Mg PO BID Multi Vitamin Daily (Multivitamin) 1 Each Tablet 1 Each PO DAILY Lisinopril 10 Mg Tablet 10 Mg PO DAILY Atorvastatin Calcium 20 Mg Tablet 20 Mg PO QHS Aspirin 81 Mg Tab.chew 81 Mg PO DAILY Tylenol (Acetaminophen) 325 Mg Tablet 650 Mg PO Q12HR Diagnosis: Problems: (1) Agitation KRISSY MONTES MD Sep 05, 2016 09:52
[2016-09-05 15:53] VITALS: BP 155/88
[2016-09-05] MEDS: ATORVASTATIN CALCIUM 20 MG TABLET PO SCH (19:23)
[2016-09-05] MEDS: NEOMY/BACITR/POLYMYXIN OINT PACKET. TP SCH (20:43)
[2016-09-06 06:17] VITALS: BP 129/71
[2016-09-06] MEDS: LISINOPRIL 10 MG TABLET PO SCH (08:18)
[2016-09-06] MEDS: QUEtiapine 25 MG TABLET. PO SCH ×3 (08:18→20:33)
[2016-09-06] MEDS: ASPIRIN 81 MG TAB.CHEW PO SCH (08:18)
[2016-09-06] MEDS: MULTIVITAMINS THERAPEUTIC PO SCH (08:18)
[2016-09-06] MEDS: ACETAMINOPHEN 325 MG TABLET PO SCH ×2 (08:18→20:34)
[2016-09-06] MEDS: ESCITALOPRAM 5 MG TABLET PO SCH (08:19)
[2016-09-06] MEDS: NEOMY/BACITR/POLYMYXIN OINT PACKET. TP SCH ×2 (08:20→20:35)
--- NOTE | 2016-09-06 08:38 | PDOC ---
Exam Bradley Demential Exam: Bradley Note: Please also refer to the separate dictated note~for this date of service dictated separately.~Patient seen individually. Discussed the patient with Nursing staff reviewed the chart.~Reviewed interim history and current functioning. Reviewed vital signs,~Labs/ Radiology~and current medications noted below. Continue current treatment with the changes noted in the dictated addendum note Assessment: Vital Signs: Vital Signs Date Time Temp Pulse Resp B/P Pulse Ox O2 Delivery O2 Flow Rate FiO2 09/06/16 08:18 72 129/71 09/06/16 06:17 97.8 16 94 Room Air I&O Intake and Output 09/06/16 07:00 Intake Total 600 ml Balance 600 ml Intake Oral 600 ml # Bowel Movements 1 Labs: Laboratory Tests Test 09/06/16 07:58 Glucose (Fingerstick) 142mg/dL (70-99) H Current Medications: Meds: Current Medications Ziprasidone (Geodon Im) 10 mg 1X ONCE IM Last administered on 08/31/16 20:55 ; Start 08/31/16 at 20:30; Stop 08/31/16 at 20:31; Status DC Acetaminophen (Tylenol) 650 mg PRN Q6HRS PRN PO PAIN / TEMP; Start 08/31/16 at 21:45 Multi-Ingredient Ointment (Analgesic [place]) 1 regino PRN QID PRN TP MUSCLE PAIN; Start 08/31/16 at 21:45 Al Hydroxide/Mg Hydroxide (Mylanta Plus Xs) 15 ml PRN AFTMEALHC PRN PO DYSPEPSIA; Start 08/31/16 at 21:45 Magnesium Hydroxide (Milk Of Magnesia) 2,400 mg PRN QHS PRN PO CONSTIPATION; Start 08/31/16 at 21:45 Lorazepam (Ativan) 0.5 mg PRN Q6HRS PRN PO ANXIETY; Start 08/31/16 at 22:00 Quetiapine Fumarate (SEROquel) 25 mg BID PO Last administered on 09/04/16 07: 47; Start 09/01/16 at 09:00; Stop 09/04/16 at 15:44; Status DC Pneumoccal 13-Valent Conj Vacc (Prevnar 13) 0.5 ml ONCE ONCE VAX IM ; Start at 09:00; Stop 09/01/16 at 09:01; Status UNV Influenza Virus Vaccine Quadrival (Fluarix Quad [id number] Syringe) 0.5 ml ONCE ONCE VAX IM Last administered on 09/01/16 11:36; Start 09/01/16 at 09:00; Stop 09/01/16 at 09:01; Status DC Info (FLU VACCINE per PROTOCOL) 1 ea PRN 1X PRN MC PER PROTOCOL; Start at 23:45; Status Cancel Pneumococcal Polyvalent Vaccine (Do NOT chart on this entry -- for MONITORING) 1 each PRN 1X PRN MC SEE COMMENTS; Start 08/31/16 at 23:45; Status Cancel Pneumococcal Polyvalent Vaccine (Pneumovax 23) 0.5 ml ONCE ONCE VAX IM Last administered on 09/01/16 11:49; Start 09/01/16 at 09:00; Stop 09/01/16 at 09:01 ; Status DC Acetaminophen (Tylenol) 650 mg Q12HR PO Last administered on 09/06/16 08:18; Start 09/01/16 at 09:00 Aspirin (Children'S Aspirin) 81 mg DAILY PO Last administered on 09/06/16 08:18 ; Start 09/01/16 at 09:00 Atorvastatin Calcium (Lipitor) 20 mg QHS PO Last administered on 09/05/16 19: 23; Start 09/01/16 at 21:00 Lisinopril (Prinivil) 10 mg DAILY PO Last administered on 09/06/16 08:18; Start 09/01/16 at 09:00 Multivitamins (Thera-Vit) 1 tab DAILY PO Last administered on 09/06/16 08:18; Start 09/01/16 at 09:00 Olanzapine (Zyprexa Zydis) 2.5 mg PRN Q2HR PRN PO PSYCHOSIS Last administered on 09/03/16 21:02; Start 09/01/16 at 13:15 Vitamin D (Vitamin D3) 50,000 unit WEEKLY PO Last administered on 09/03/16 07: 35; Start 09/03/16 at 09:00; Stop 10/29/16 at 09:01 Escitalopram Oxalate (Lexapro) 5 mg DAILY PO Last administered on 09/06/16 08: 19; Start 09/04/16 at 09:00 Quetiapine Fumarate (SEROquel) 25 mg TID PO Last administered on 09/06/16 08:18 ; Start 09/04/16 at 21:00 Neomycin/ Polymyxin/ Bacitracin (Triple Antibiotic Ointment) 1 pkt BID TP Last administered on 09/06/16 08:20; Start 09/05/16 at 21:00 Active Scripts Active Reported Lorazepam 0.5 Mg Tablet 0.5 Mg PO PRN Q6HRS PRN Acetaminophen 325 Mg Tablet 650 Mg PO PRN Q4HRS PRN Quetiapine Fumarate 25 Mg Tablet 25 Mg PO BID Multi Vitamin Daily (Multivitamin) 1 Each Tablet 1 Each PO DAILY Lisinopril 10 Mg Tablet 10 Mg PO DAILY Atorvastatin Calcium 20 Mg Tablet 20 Mg PO QHS Aspirin 81 Mg Tab.chew 81 Mg PO DAILY Tylenol (Acetaminophen) 325 Mg Tablet 650 Mg PO Q12HR Diagnosis: Problems: (1) Agitation KRISSY MONTES MD Sep 06, 2016 08:38
--- NOTE | 2016-09-06 14:15 | PN ---
DATE: 09/04/2016 This is a late entry for 09/04/2016, covers elements not covered in my initial note. SUBJECTIVE: The patient was seen individually on the evening of 09/04/2016. Discussed with nursing staff, reviewed the chart. Overall, the patient has been "mean." She refused her medications and was extremely agitated during shower, striking out. Medications had to be syringed. It took 4 staff members to change her pants per nursing report. She gets paranoid, delusional, anxious. REVIEW OF SYSTEMS: No CV, , pulmonary, eye, ENT system symptoms on review. Reliability poor. MENTAL STATUS EXAM: Oriented to herself. Insight, judgment, recent and remote memory, attention, concentration, fund of knowledge poor, consistent with her diagnosis. LABORATORY DATA: Reviewed. IMPRESSION: Major neurocognitive disorder, Alzheimer, vascular with depression, delusions and behavioral disturbance. Rest unchanged. PLAN: Maintain Seroquel, Ativan p.r.n., Lexapro was added 5 mg a day, Zyprexa p.r.n. We may need to add BuSpar for anxiety, but for now Seroquel was increased to 3 times a day and we will see how she does before adding BuSpar. KRISSY MONTES MD DR: STEVE/bishop JOB#: [id number] / [id number]
[2016-09-06 15:55] VITALS: BP 140/83
[2016-09-06] MEDS: busPIRone 5 MG TABLET. PO SCH (20:33)
[2016-09-06] MEDS: ATORVASTATIN CALCIUM 20 MG TABLET PO SCH (20:33)
[2016-09-06] MEDS: OLANZAPINE ZYDIS 5 MG TAB.RAPDIS PO PRN (21:23)
--- NOTE | 2016-09-07 02:20 | PN ---
DATE: 09/05/2016 This late entry for 09/05/2016 covers the elements not covered in my initial note. SUBJECTIVE: Per nursing report, the patient remains intermittently agitated. She was extremely aggressive with nursing staff as they tried to remove her wedding ring from her fingers after consent from the family. It took 5 staffs for this. REVIEW OF SYSTEMS: No CV, , pulmonary, eye, ENT system symptoms on review. Reliability poor. I met with her in her room. She was trying to make her bed. I assisted her with it, but she was oblivious. MENTAL STATUS EXAM: Oriented to herself. Insight, judgment, recent and remote memory, attention, concentration, fund of knowledge poor, consistent with her diagnosis as mentioned in my initial note. IMPRESSION: Major neurocognitive disorder, Alzheimer, vascular with depression, delusion, behavioral disturbance; anxiety disorder, unspecified; impulse control disorder, unspecified. PLAN: Continue Zyprexa p.r.n., Seroquel 25 t.i.d., Ativan p.r.n., Lexapro 5 mg a day, Seroquel in fact has been increased to t.i.d. and we will see how she does before considering Depakote as a mood stabilizer or BuSpar for anxiety. KRISSY MONTES MD DR: STEVE/bishop JOB#: [id number] / [id number]
[2016-09-07 06:18] VITALS: BP 124/67
[2016-09-07 07:11] LABS: ALBUMIN 3.5 g/dL (3.4-5.0); ALBUMIN/GLOBULIN RATIO 0.9 (1.0-1.7); BASO # 0.1 x10^3/uL (0.0-0.2); BASO % 1 % (0-3); CALCIUM 9.3 mg/dL (8.5-10.1); EOS # 0.2 x10^3/uL (0.0-0.7); EOS % 2 % (0-3); GFR 53.2; HEMATOCRIT 45.2 % (36.0-47.0); HEMOGLOBIN 14.9 g/dL (12.0-15.5); LYMPH # 2.9 x10^3/uL (1.0-4.8); LYMPH % 26 % (24-48); MEAN CORPUSCULAR HEMOGLOBIN 31 pg (25-35); MEAN CORPUSCULAR HGB CONC 33 g/dL (31-37); MEAN CORPUSCULAR VOLUME 95 fL (79-100); MONO # 0.8 x10^3/uL (0.0-1.1); MONO % 8 % (0-9); NEUT # 7.1 x10^3uL (1.8-7.7); NEUT % 64 % (31-73); PLATELET COUNT 250 x10^3/uL (140-400); RED BLOOD COUNT 4.78 x10^6/uL (3.50-5.40); RED CELL DISTRIBUTION WIDTH 13.4 % (11.5-14.5); TOTAL BILIRUBIN 1.4 mg/dL (0.2-1.0); TOTAL PROTEIN 7.2 g/dL (6.4-8.2); WHITE BLOOD COUNT 11.2 x10^3/uL (4.0-11.0)
--- NOTE | 2016-09-07 08:36 | PDOC ---
Exam Bradley Demential Exam: Bradley Note: Please also refer to the separate dictated note~for this date of service dictated separately.~Patient seen individually. Discussed the patient with Nursing staff reviewed the chart.~Reviewed interim history and current functioning. Reviewed vital signs,~Labs/ Radiology~and current medications noted below. Continue current treatment with the changes noted in the dictated addendum note Assessment: Vital Signs: Vital Signs Date Time Temp Pulse Resp B/P Pulse Ox O2 Delivery O2 Flow Rate FiO2 09/07/16 06:18 97.5 65 20 124/67 Room Air 98.0 09/06/16 15:55 96 I&O Intake and Output 09/07/16 07:00 Intake Total 600 ml Balance 600 ml Intake Oral 600 ml Labs: Laboratory Tests Test 09/06/16 16:26 09/06/16 19:17 09/07/16 06:42 09/07/16 07:27 Glucose (Fingerstick) 123mg/dL (70-99) H 118mg/dL (70-99) H 119mg/dL (70-99) H White Blood Count 11.2x10^3/uL (4.0-11.0) H Red Blood Count 4.78x10^6/uL (3.50-5.40) Hemoglobin 14.9g/dL (12.0-15.5) Hematocrit 45.2% (36.0-47.0) Mean Corpuscular Volume 95fL (79-100) Mean Corpuscular Hemoglobin 31pg (25-35) Mean Corpuscular Hemoglobin Concent 33g/dL (31-37) Red Cell Distribution Width 13.4% (11.5-14.5) Platelet Count 250x10^3/uL (140-400) Neutrophils (%) (Auto) 64% (31-73) Lymphocytes (%) (Auto) 26% (24-48) Monocytes (%) (Auto) 8% (0-9) Eosinophils (%) (Auto) 2% (0-3) Basophils (%) (Auto) 1% (0-3) Neutrophils # (Auto) 7.1x10^3uL (1.8-7.7) Lymphocytes # (Auto) 2.9x10^3/uL (1.0-4.8) Monocytes # (Auto) 0.8x10^3/uL (0.0-1.1) Eosinophils # (Auto) 0.2x10^3/uL (0.0-0.7) Basophils # (Auto) 0.1x10^3/uL (0.0-0.2) Sodium Level 141mmol/L (136-145) Potassium Level 4.0mmol/L (3.5-5.1) Chloride Level 106mmol/L (98-107) Carbon Dioxide Level 25mmol/L (21-32) Anion Gap 10 (6-14) Blood Urea Nitrogen 15mg/dL (7-20) Creatinine 1.0mg/dL (0.6-1.0) Estimated GFR (Cockcroft-Gault) 53.2 BUN/Creatinine Ratio 15 (6-20) Glucose Level 147mg/dL (70-99) H Calcium Level 9.3mg/dL (8.5-10.1) Magnesium Level 2.0mg/dL (1.8-2.4) Total Bilirubin 1.4mg/dL (0.2-1.0) H Aspartate Amino Transferase (AST) 18U/L (15-37) Alanine Aminotransferase (ALT) 25U/L (14-59) Alkaline Phosphatase 81U/L (46-116) Total Protein 7.2g/dL (6.4-8.2) Albumin 3.5g/dL (3.4-5.0) Albumin/Globulin Ratio 0.9 (1.0-1.7) L Current Medications: Meds: Current Medications Ziprasidone (Geodon Im) 10 mg 1X ONCE IM Last administered on 08/31/16t 20:55 ; Start 08/31/16 at 20:30; Stop 08/31/16 at 20:31; Status DC Acetaminophen (Tylenol) 650 mg PRN Q6HRS PRN PO PAIN / TEMP; Start 08/31/16 at 21:45 Multi-Ingredient Ointment (Analgesic [place]) 1 regino PRN QID PRN TP MUSCLE PAIN; Start 08/31/16 at 21:45 Al Hydroxide/Mg Hydroxide (Mylanta Plus Xs) 15 ml PRN AFTMEALHC PRN PO DYSPEPSIA; Start 08/31/16 at 21:45 Magnesium Hydroxide (Milk Of Magnesia) 2,400 mg PRN QHS PRN PO CONSTIPATION; Start 08/31/16 at 21:45 Lorazepam (Ativan) 0.5 mg PRN Q6HRS PRN PO ANXIETY Last administered on 21:23; Start 08/31/16 at 22:00 Quetiapine Fumarate (SEROquel) 25 mg BID PO Last administered on 09/04/16 07: 47; Start 09/01/16 at 09:00; Stop 09/04/16 at 15:44; Status DC Pneumoccal 13-Valent Conj Vacc (Prevnar 13) 0.5 ml ONCE ONCE VAX IM ; Start at 09:00; Stop 09/01/16 at 09:01; Status UNV Influenza Virus Vaccine Quadrival (Fluarix Quad [id number] Syringe) 0.5 ml ONCE ONCE VAX IM Last administered on 09/01/16 11:36; Start 09/01/16 at 09:00; Stop 09/01/16 at 09:01; Status DC Info (FLU VACCINE per PROTOCOL) 1 ea PRN 1X PRN MC PER PROTOCOL; Start at 23:45; Status Cancel Pneumococcal Polyvalent Vaccine (Do NOT chart on this entry -- for MONITORING) 1 each PRN 1X PRN MC SEE COMMENTS; Start 08/31/16 at 23:45; Status Cancel Pneumococcal Polyvalent Vaccine (Pneumovax 23) 0.5 ml ONCE ONCE VAX IM Last administered on 09/01/16 11:49; Start 09/01/16 at 09:00; Stop 09/01/16 at 09:01 ; Status DC Acetaminophen (Tylenol) 650 mg Q12HR PO Last administered on 09/06/16 20:34; Start 09/01/16 at 09:00 Aspirin (Children'S Aspirin) 81 mg DAILY PO Last administered on 09/06/16 08:18 ; Start 09/01/16 at 09:00 Atorvastatin Calcium (Lipitor) 20 mg QHS PO Last administered on 09/06/16 20:33 ; Start 09/01/16 at 21:00 Lisinopril (Prinivil) 10 mg DAILY PO Last administered on 09/06/16 08:18; Start 09/01/16 at 09:00 Multivitamins (Thera-Vit) 1 tab DAILY PO Last administered on 09/06/16 08:18; Start 09/01/16 at 09:00 Olanzapine (Zyprexa Zydis) 2.5 mg PRN Q2HR PRN PO PSYCHOSIS Last administered on 09/06/16 21:23; Start 09/01/16 at 13:15 Vitamin D (Vitamin D3) 50,000 unit WEEKLY PO Last administered on 09/03/16 07: 35; Start 09/03/16 at 09:00; Stop 10/29/16 at 09:01 Escitalopram Oxalate (Lexapro) 5 mg DAILY PO Last administered on 09/06/16 08: 19; Start 09/04/16 at 09:00 Quetiapine Fumarate (SEROquel) 25 mg TID PO Last administered on 09/06/16 20:33 ; Start 09/04/16 at 21:00 Neomycin/ Polymyxin/ Bacitracin (Triple Antibiotic Ointment) 1 pkt BID TP Last administered on 09/06/16 20:35; Start 09/05/16 at 21:00 Metformin HCl (Glucophage Xr) 500 mg DAILYWBKFT PO ; Start 09/07/16 at 08:00 Buspirone HCl (Buspar) 5 mg BID PO Last administered on 09/06/16 20:33; Start 09/06/16 at 21:00 Active Scripts Active Reported Lorazepam 0.5 Mg Tablet 0.5 Mg PO PRN Q6HRS PRN Acetaminophen 325 Mg Tablet 650 Mg PO PRN Q4HRS PRN Quetiapine Fumarate 25 Mg Tablet 25 Mg PO BID Multi Vitamin Daily (Multivitamin) 1 Each Tablet 1 Each PO DAILY Lisinopril 10 Mg Tablet 10 Mg PO DAILY Atorvastatin Calcium 20 Mg Tablet 20 Mg PO QHS Aspirin 81 Mg Tab.chew 81 Mg PO DAILY Tylenol (Acetaminophen) 325 Mg Tablet 650 Mg PO Q12HR Diagnosis: Problems: (1) Agitation KRISSY MONTES MD Sep 07, 2016 08:36
[2016-09-07] MEDS: ESCITALOPRAM 5 MG TABLET PO SCH (08:56)
[2016-09-07] MEDS: QUEtiapine 25 MG TABLET. PO SCH ×3 (08:56→19:28)
[2016-09-07] MEDS: busPIRone 5 MG TABLET. PO SCH (08:56)
[2016-09-07] MEDS: ASPIRIN 81 MG TAB.CHEW PO SCH (08:56)
[2016-09-07] MEDS: ACETAMINOPHEN 325 MG TABLET PO SCH ×2 (08:56→19:28)
[2016-09-07] MEDS: METFORMIN XR 500 MG TAB.ER.24H PO SCH (08:56)
[2016-09-07] MEDS: MULTIVITAMINS THERAPEUTIC PO SCH (08:56)
[2016-09-07] MEDS: LISINOPRIL 10 MG TABLET PO SCH (08:58)
[2016-09-07] MEDS: NEOMY/BACITR/POLYMYXIN OINT PACKET. TP SCH ×2 (08:58→20:10)
[2016-09-07 15:15] VITALS: BP 117/67
[2016-09-07] MEDS: ATORVASTATIN CALCIUM 20 MG TABLET PO SCH (19:28)
[2016-09-07] MEDS: busPIRone 10 MG TABLET. PO SCH (20:09)
[2016-09-08 06:12] VITALS: BP 138/69
[2016-09-08] MEDS: METFORMIN XR 500 MG TAB.ER.24H PO SCH (08:54)
[2016-09-08] MEDS: ASPIRIN 81 MG TAB.CHEW PO SCH (08:54)
[2016-09-08] MEDS: MULTIVITAMINS THERAPEUTIC PO SCH (08:54)
[2016-09-08] MEDS: QUEtiapine 25 MG TABLET. PO SCH ×3 (08:55→19:40)
[2016-09-08] MEDS: LISINOPRIL 10 MG TABLET PO SCH (08:55)
[2016-09-08] MEDS: busPIRone 10 MG TABLET. PO SCH ×2 (08:55→19:40)
[2016-09-08] MEDS: NEOMY/BACITR/POLYMYXIN OINT PACKET. TP SCH ×2 (08:57→19:41)
[2016-09-08] MEDS: ACETAMINOPHEN 325 MG TABLET PO SCH ×2 (08:59→19:40)
[2016-09-08] MEDS: ESCITALOPRAM 10 MG TABLET. PO SCH (09:01)
--- NOTE | 2016-09-08 13:09 | PN ---
DATE: 09/07/2016 PSYCHIATRIC PROGRESS NOTE This is a late entry 09/07/2016, covers elements not covered in my note. SUBJECTIVE: The patient was staffed at treatment team meeting with entire team morning of 09/07/2016 and discussed regarding the patient's history, diagnoses, progress, discharge plans and seen individually at length the evening of 09/07/2016. Appetite about 67% of meals, sleeping about 5 hours, combative at times, confused. REVIEW OF SYSTEMS: No CV, , pulmonary, eye, ENT system symptoms on review. MENTAL STATUS EXAM: Oriented to herself, anxious, restless, gets into the room of other patients and then gets abrasive if she is asked to leave. Insight, judgment, recent and remote memory, attention, concentration, fund of knowledge poor, consistent with her diagnoses. IMPRESSION: Major neurocognitive disorder, Alzheimer, vascular with depression, delusion and behavioral disturbance; anxiety disorder, unspecified; impulse control disorder, unspecified. PLAN: Increase BuSpar from 5 b.i.d. to 10 b.i.d., Lexapro from 5 mg a day to 10 mg a day, Ativan p.r.n., Seroquel 25 t.i.d., Zyprexa p.r.n. Adjust further as clinically indicated. KRISSY MONTES MD DR: STEVE/bishop JOB#: [id number] / [id number]
[2016-09-08 16:06] VITALS: BP 137/79
[2016-09-08] MEDS: ATORVASTATIN CALCIUM 20 MG TABLET PO SCH (19:40)
[2016-09-08] MEDS: OLANZAPINE ZYDIS 5 MG TAB.RAPDIS PO PRN (20:05)
--- NOTE | 2016-09-08 20:14 | PDOC ---
Exam Bradley Demential Exam: Bradley Note: Please also refer to the separate dictated note~for this date of service dictated separately.~Patient seen individually. Discussed the patient with Nursing staff reviewed the chart.~Reviewed interim history and current functioning. Reviewed vital signs,~Labs/ Radiology~and current medications noted below. Continue current treatment with the changes noted in the dictated addendum note Assessment: Vital Signs: Vital Signs Date Time Temp Pulse Resp B/P Pulse Ox O2 Delivery O2 Flow Rate FiO2 09/08/16 16:06 97.0 83 17 137/79 95 09/08/16 06:12 Room Air 09/07/16 06:18 98.0 I&O Intake and Output 09/08/16 07:00 Intake Total 840 ml Balance 840 ml Intake Oral 840 ml Labs: Laboratory Tests Test 09/08/16 07:09 09/08/16 11:12 09/08/16 16:42 Glucose (Fingerstick) 137mg/dL (70-99) H 151mg/dL (70-99) H 119mg/dL (70-99) H Current Medications: Meds: Current Medications Ziprasidone (Geodon Im) 10 mg 1X ONCE IM Last administered on 08/31/16 20:55 ; Start 08/31/16 at 20:30; Stop 08/31/16 at 20:31; Status DC Acetaminophen (Tylenol) 650 mg PRN Q6HRS PRN PO PAIN / TEMP; Start 08/31/16 at 21:45 Multi-Ingredient Ointment (Analgesic [place]) 1 regino PRN QID PRN TP MUSCLE PAIN; Start 08/31/16 at 21:45 Al Hydroxide/Mg Hydroxide (Mylanta Plus Xs) 15 ml PRN AFTMEALHC PRN PO DYSPEPSIA; Start 08/31/16 at 21:45 Magnesium Hydroxide (Milk Of Magnesia) 2,400 mg PRN QHS PRN PO CONSTIPATION; Start 08/31/16 at 21:45 Lorazepam (Ativan) 0.5 mg PRN Q6HRS PRN PO ANXIETY Last administered on 21:23; Start 08/31/16 at 22:00 Quetiapine Fumarate (SEROquel) 25 mg BID PO Last administered on 09/04/16 07: 47; Start 09/01/16 at 09:00; Stop 09/04/16 at 15:44; Status DC Pneumoccal 13-Valent Conj Vacc (Prevnar 13) 0.5 ml ONCE ONCE VAX IM ; Start at 09:00; Stop 09/01/16 at 09:01; Status UNV Influenza Virus Vaccine Quadrival (Fluarix Quad [id number] Syringe) 0.5 ml ONCE ONCE VAX IM Last administered on 09/01/16 11:36; Start 09/01/16 at 09:00; Stop 09/01/16 at 09:01; Status DC Info (FLU VACCINE per PROTOCOL) 1 ea PRN 1X PRN MC PER PROTOCOL; Start at 23:45; Status Cancel Pneumococcal Polyvalent Vaccine (Do NOT chart on this entry -- for MONITORING) 1 each PRN 1X PRN MC SEE COMMENTS; Start 08/31/16 at 23:45; Status Cancel Pneumococcal Polyvalent Vaccine (Pneumovax 23) 0.5 ml ONCE ONCE VAX IM Last administered on 09/01/16 11:49; Start 09/01/16 at 09:00; Stop 09/01/16 at 09:01 ; Status DC Acetaminophen (Tylenol) 650 mg Q12HR PO Last administered on 09/08/16 19:40; Start 09/01/16 at 09:00 Aspirin (Children'S Aspirin) 81 mg DAILY PO Last administered on 09/08/16 08:54 ; Start 09/01/16 at 09:00 Atorvastatin Calcium (Lipitor) 20 mg QHS PO Last administered on 09/08/16 19:40 ; Start 09/01/16 at 21:00 Lisinopril (Prinivil) 10 mg DAILY PO Last administered on 09/08/16 08:55; Start 09/01/16 at 09:00 Multivitamins (Thera-Vit) 1 tab DAILY PO Last administered on 09/08/16 08:54; Start 09/01/16 at 09:00 Olanzapine (Zyprexa Zydis) 2.5 mg PRN Q2HR PRN PO PSYCHOSIS Last administered on 09/08/16 20:05; Start 09/01/16 at 13:15 Vitamin D (Vitamin D3) 50,000 unit WEEKLY PO Last administered on 09/03/16 07: 35; Start 09/03/16 at 09:00; Stop 10/29/16 at 09:01 Escitalopram Oxalate (Lexapro) 5 mg DAILY PO Last administered on 09/07/16 08: 56; Start 09/04/16 at 09:00; Stop 09/07/16 at 13:09; Status DC Quetiapine Fumarate (SEROquel) 25 mg TID PO Last administered on 09/08/16 19:40 ; Start 09/04/16 at 21:00 Neomycin/ Polymyxin/ Bacitracin (Triple Antibiotic Ointment) 1 pkt BID TP Last administered on 09/08/16 19:41; Start 09/05/16 at 21:00 Metformin HCl (Glucophage Xr) 500 mg DAILYWBKFT PO Last administered on 08:54; Start 09/07/16 at 08:00 Buspirone HCl (Buspar) 5 mg BID PO Last administered on 09/07/16 08:56; Start 09/06/16 at 21:00; Stop 09/07/16 at 13:09; Status DC Buspirone HCl (Buspar) 10 mg BID PO Last administered on 09/08/16 19:40; Start 09/07/16 at 21:00 Escitalopram Oxalate (Lexapro) 10 mg DAILY PO Last administered on 09/08/16 09: 01; Start 09/08/16 at 09:00 Active Scripts Active Reported Lorazepam 0.5 Mg Tablet 0.5 Mg PO PRN Q6HRS PRN Acetaminophen 325 Mg Tablet 650 Mg PO PRN Q4HRS PRN Quetiapine Fumarate 25 Mg Tablet 25 Mg PO BID Multi Vitamin Daily (Multivitamin) 1 Each Tablet 1 Each PO DAILY Lisinopril 10 Mg Tablet 10 Mg PO DAILY Atorvastatin Calcium 20 Mg Tablet 20 Mg PO QHS Aspirin 81 Mg Tab.chew 81 Mg PO DAILY Tylenol (Acetaminophen) 325 Mg Tablet 650 Mg PO Q12HR Diagnosis: Problems: (1) Agitation KRISSY MONTES MD Sep 08, 2016 20:13
--- NOTE | 2016-09-08 22:33 | PN ---
DATE: 09/06/2016 PSYCHIATRIC PROGRESS NOTE This is a late entry for 09/06/2016, covers elements not covered in my initial note. SUBJECTIVE: Per nursing report, the patient has been combative with care, is very confused, oblivious of her surroundings, goes into other patient's rooms, anxious, restless, but at times redirects with persistence. REVIEW OF SYSTEMS: No CV, , pulmonary, eye, ENT system symptoms on review. Reliability poor. MENTAL STATUS EXAM: Oriented to herself. Insight, judgment, recent and remote memory, attention, concentration, fund of knowledge poor, consistent with her diagnosis. LABORATORY DATA: Labs reviewed. IMPRESSION: Major neurocognitive disorder, Alzheimer, vascular with delusion, depression, behavioral disturbance; anxiety disorder, unspecified; impulse control disorder, unspecified. PLAN: Maintain Zyprexa p.r.n., Seroquel 25 three times a day, Ativan p.r.n., Lexapro 5 mg a day, start BuSpar 5 mg twice a day. Adjust further as clinically indicated. MAN Sonia MONTES MD DR: STEVE/bishop JOB#: [id number] / [id number]
[2016-09-09 06:25] VITALS: BP 180/95
--- NOTE | 2016-09-09 08:06 | PDOC ---
Exam Bradley Demential Exam: Bradley Note: Please also refer to the separate dictated note~for this date of service dictated separately.~Patient seen individually. Discussed the patient with Nursing staff reviewed the chart.~Reviewed interim history and current functioning. Reviewed vital signs,~Labs/ Radiology~and current medications noted below. Continue current treatment with the changes noted in the dictated addendum note Assessment: Vital Signs: Vital Signs Date Time Temp Pulse Resp B/P Pulse Ox O2 Delivery O2 Flow Rate FiO2 09/09/16 06:25 97.6 98 20 180/95 94 09/08/16 06:12 Room Air 09/07/16 06:18 98.0 I&O Intake and Output 09/09/16 07:00 Intake Total 600 ml Balance 600 ml Intake Oral 600 ml Labs: Laboratory Tests Test 09/08/16 11:12 09/08/16 16:42 09/09/16 07:22 Glucose (Fingerstick) 151mg/dL (70-99) H 119mg/dL (70-99) H 133mg/dL (70-99) H Current Medications: Meds: Current Medications Ziprasidone (Geodon Im) 10 mg 1X ONCE IM Last administered on 08/31/16 20:55 ; Start 08/31/16 at 20:30; Stop 08/31/16 at 20:31; Status DC Acetaminophen (Tylenol) 650 mg PRN Q6HRS PRN PO PAIN / TEMP; Start 08/31/16 at 21:45 Multi-Ingredient Ointment (Analgesic [place]) 1 regino PRN QID PRN TP MUSCLE PAIN; Start 08/31/16 at 21:45 Al Hydroxide/Mg Hydroxide (Mylanta Plus Xs) 15 ml PRN AFTMEALHC PRN PO DYSPEPSIA; Start 08/31/16 at 21:45 Magnesium Hydroxide (Milk Of Magnesia) 2,400 mg PRN QHS PRN PO CONSTIPATION; Start 08/31/16 at 21:45 Lorazepam (Ativan) 0.5 mg PRN Q6HRS PRN PO ANXIETY Last administered on 21:23; Start 08/31/16 at 22:00 Quetiapine Fumarate (SEROquel) 25 mg BID PO Last administered on 09/04/16 07: 47; Start 09/01/16 at 09:00; Stop 09/04/16 at 15:44; Status DC Pneumoccal 13-Valent Conj Vacc (Prevnar 13) 0.5 ml ONCE ONCE VAX IM ; Start at 09:00; Stop 09/01/16 at 09:01; Status UNV Influenza Virus Vaccine Quadrival (Fluarix Quad [id number] Syringe) 0.5 ml ONCE ONCE VAX IM Last administered on 09/01/16 11:36; Start 09/01/16 at 09:00; Stop 09/01/16 at 09:01; Status DC Info (FLU VACCINE per PROTOCOL) 1 ea PRN 1X PRN MC PER PROTOCOL; Start at 23:45; Status Cancel Pneumococcal Polyvalent Vaccine (Do NOT chart on this entry -- for MONITORING) 1 each PRN 1X PRN MC SEE COMMENTS; Start 08/31/16 at 23:45; Status Cancel Pneumococcal Polyvalent Vaccine (Pneumovax 23) 0.5 ml ONCE ONCE VAX IM Last administered on 09/01/16 11:49; Start 09/01/16 at 09:00; Stop 09/01/16 at 09:01 ; Status DC Acetaminophen (Tylenol) 650 mg Q12HR PO Last administered on 09/08/16 19:40; Start 09/01/16 at 09:00 Aspirin (Children'S Aspirin) 81 mg DAILY PO Last administered on 09/08/16 08:54 ; Start 09/01/16 at 09:00 Atorvastatin Calcium (Lipitor) 20 mg QHS PO Last administered on 09/08/16 19:40 ; Start 09/01/16 at 21:00 Lisinopril (Prinivil) 10 mg DAILY PO Last administered on 09/08/16 08:55; Start 09/01/16 at 09:00 Multivitamins (Thera-Vit) 1 tab DAILY PO Last administered on 09/08/16 08:54; Start 09/01/16 at 09:00 Olanzapine (Zyprexa Zydis) 2.5 mg PRN Q2HR PRN PO PSYCHOSIS Last administered on 09/08/16 20:05; Start 09/01/16 at 13:15 Vitamin D (Vitamin D3) 50,000 unit WEEKLY PO Last administered on 09/03/16 07: 35; Start 09/03/16 at 09:00; Stop 10/29/16 at 09:01 Escitalopram Oxalate (Lexapro) 5 mg DAILY PO Last administered on 09/07/16 08: 56; Start 09/04/16 at 09:00; Stop 09/07/16 at 13:09; Status DC Quetiapine Fumarate (SEROquel) 25 mg TID PO Last administered on 09/08/16 19:40 ; Start 09/04/16 at 21:00 Neomycin/ Polymyxin/ Bacitracin (Triple Antibiotic Ointment) 1 pkt BID TP Last administered on 09/08/16 19:41; Start 09/05/16 at 21:00 Metformin HCl (Glucophage Xr) 500 mg DAILYWBKFT PO Last administered on 08:54; Start 09/07/16 at 08:00 Buspirone HCl (Buspar) 5 mg BID PO Last administered on 09/07/16 08:56; Start 09/06/16 at 21:00; Stop 09/07/16 at 13:09; Status DC Buspirone HCl (Buspar) 10 mg BID PO Last administered on 09/08/16 19:40; Start 09/07/16 at 21:00 Escitalopram Oxalate (Lexapro) 10 mg DAILY PO Last administered on 09/08/16 09: 01; Start 09/08/16 at 09:00 Active Scripts Active Reported Lorazepam 0.5 Mg Tablet 0.5 Mg PO PRN Q6HRS PRN Acetaminophen 325 Mg Tablet 650 Mg PO PRN Q4HRS PRN Quetiapine Fumarate 25 Mg Tablet 25 Mg PO BID Multi Vitamin Daily (Multivitamin) 1 Each Tablet 1 Each PO DAILY Lisinopril 10 Mg Tablet 10 Mg PO DAILY Atorvastatin Calcium 20 Mg Tablet 20 Mg PO QHS Aspirin 81 Mg Tab.chew 81 Mg PO DAILY Tylenol (Acetaminophen) 325 Mg Tablet 650 Mg PO Q12HR Diagnosis: Problems: (1) Agitation KRISSY MONTES MD Sep 09, 2016 08:06
[2016-09-09] MEDS: ASPIRIN 81 MG TAB.CHEW PO SCH (08:28)
[2016-09-09] MEDS: MULTIVITAMINS THERAPEUTIC PO SCH (08:28)
[2016-09-09] MEDS: METFORMIN XR 500 MG TAB.ER.24H PO SCH (08:28)
[2016-09-09] MEDS: QUEtiapine 25 MG TABLET. PO SCH ×3 (08:28→20:59)
[2016-09-09] MEDS: busPIRone 10 MG TABLET. PO SCH ×2 (08:28→20:59)
[2016-09-09] MEDS: ESCITALOPRAM 10 MG TABLET. PO SCH (08:28)
[2016-09-09] MEDS: LISINOPRIL 10 MG TABLET PO SCH (08:29)
[2016-09-09] MEDS: ACETAMINOPHEN 325 MG TABLET PO SCH ×2 (08:31→20:59)
[2016-09-09] MEDS: NEOMY/BACITR/POLYMYXIN OINT PACKET. TP SCH ×2 (08:31→21:19)
[2016-09-09 15:41] VITALS: BP 145/84
[2016-09-09] MEDS: ATORVASTATIN CALCIUM 20 MG TABLET PO SCH (20:59)
--- NOTE | 2016-09-09 22:55 | PN ---
DATE: 09/08/2016 PSYCHIATRIC PROGRESS NOTE This is late entry for 09/08/2016, covers the elements not covered in my initial note. SUBJECTIVE: Per nursing report, the patient remains confused, does not participate in groups and activities. Takes her meds in ice cream and gets quite angry, irritable, labile when she is changed. REVIEW OF SYSTEMS: No CV, , eye, ENT or pulmonary system symptoms on review. Reliability poor. MENTAL STATUS EXAM: Oriented to herself. Insight, judgment, recent and remote memory, attention, concentration, fund of knowledge poor, consistent with her diagnosis as mentioned in the initial note. PLAN: Continue Zyprexa Zydis p.r.n., Seroquel 25 t.i.d., Ativan p.r.n., Lexapro 10 mg a day, BuSpar 10 b.i.d. Adjust further as clinically indicated. KRISSY MONTES MD DR: STEVE/bishop JOB#: [id number] / [id number]
[2016-09-10 06:33] VITALS: BP 176/76
[2016-09-10] MEDS: METFORMIN XR 500 MG TAB.ER.24H PO SCH (08:03)
[2016-09-10] MEDS: LISINOPRIL 10 MG TABLET PO SCH (08:03)
[2016-09-10] MEDS: busPIRone 10 MG TABLET. PO SCH ×2 (08:06→19:45)
[2016-09-10] MEDS: ESCITALOPRAM 10 MG TABLET. PO SCH (08:06)
[2016-09-10] MEDS: QUEtiapine 25 MG TABLET. PO SCH ×3 (08:06→19:45)
[2016-09-10] MEDS: MULTIVITAMINS THERAPEUTIC PO SCH (08:06)
[2016-09-10] MEDS: ASPIRIN 81 MG TAB.CHEW PO SCH (08:06)
[2016-09-10] MEDS: ACETAMINOPHEN 325 MG TABLET PO SCH ×2 (08:06→19:45)
[2016-09-10] MEDS: CHOLECALCIFEROL (VITAMIN D3) 50,000 UNIT CAPSULE PO SCH (08:08)
[2016-09-10] MEDS: NEOMY/BACITR/POLYMYXIN OINT PACKET. TP SCH ×2 (08:08→19:46)
--- NOTE | 2016-09-10 08:40 | PDOC ---
Exam Bradley Demential Exam: Bradley Note: Please also refer to the separate dictated note~for this date of service dictated separately.~Patient seen individually. Discussed the patient with Nursing staff reviewed the chart.~Reviewed interim history and current functioning. Reviewed vital signs,~Labs/ Radiology~and current medications noted below. Continue current treatment with the changes noted in the dictated addendum note Assessment: Vital Signs: Vital Signs Date Time Temp Pulse Resp B/P Pulse Ox O2 Delivery O2 Flow Rate FiO2 09/10/16 08:03 89 176/76 09/10/16 06:33 98.2 20 95 09/08/16 06:12 Room Air 09/07/16 06:18 98.0 I&O Intake and Output 09/10/16 07:00 Intake Total 720 ml Balance 720 ml Intake Oral 720 ml Labs: Laboratory Tests Test 09/09/16 11:28 09/09/16 16:31 09/09/16 19:19 09/10/16 07:07 Glucose (Fingerstick) 141mg/dL (70-99) H 113mg/dL (70-99) H 166mg/dL (70-99) H 137mg/dL (70-99) H Current Medications: Meds: Current Medications Ziprasidone (Geodon Im) 10 mg 1X ONCE IM Last administered on 08/31/16 20:55 ; Start 08/31/16 at 20:30; Stop 08/31/16 at 20:31; Status DC Acetaminophen (Tylenol) 650 mg PRN Q6HRS PRN PO PAIN / TEMP; Start 08/31/16 at 21:45 Multi-Ingredient Ointment (Analgesic [place]) 1 regino PRN QID PRN TP MUSCLE PAIN; Start 08/31/16 at 21:45 Al Hydroxide/Mg Hydroxide (Mylanta Plus Xs) 15 ml PRN AFTMEALHC PRN PO DYSPEPSIA; Start 08/31/16 at 21:45 Magnesium Hydroxide (Milk Of Magnesia) 2,400 mg PRN QHS PRN PO CONSTIPATION Last administered on 09/10/16 08:03; Start 08/31/16 at 21:45 Lorazepam (Ativan) 0.5 mg PRN Q6HRS PRN PO ANXIETY Last administered on 21:23; Start 08/31/16 at 22:00 Quetiapine Fumarate (SEROquel) 25 mg BID PO Last administered on 09/04/16 07: 47; Start 09/01/16 at 09:00; Stop 09/04/16 at 15:44; Status DC Pneumoccal 13-Valent Conj Vacc (Prevnar 13) 0.5 ml ONCE ONCE VAX IM ; Start at 09:00; Stop 09/01/16 at 09:01; Status UNV Influenza Virus Vaccine Quadrival (Fluarix Quad [id number] Syringe) 0.5 ml ONCE ONCE VAX IM Last administered on 09/01/16 11:36; Start 09/01/16 at 09:00; Stop 09/01/16 at 09:01; Status DC Info (FLU VACCINE per PROTOCOL) 1 ea PRN 1X PRN MC PER PROTOCOL; Start at 23:45; Status Cancel Pneumococcal Polyvalent Vaccine (Do NOT chart on this entry -- for MONITORING) 1 each PRN 1X PRN MC SEE COMMENTS; Start 08/31/16 at 23:45; Status Cancel Pneumococcal Polyvalent Vaccine (Pneumovax 23) 0.5 ml ONCE ONCE VAX IM Last administered on 09/01/16 11:49; Start 09/01/16 at 09:00; Stop 09/01/16 at 09:01 ; Status DC Acetaminophen (Tylenol) 650 mg Q12HR PO Last administered on 09/10/16 08:06; Start 09/01/16 at 09:00 Aspirin (Children'S Aspirin) 81 mg DAILY PO Last administered on 09/10/16 08:06 ; Start 09/01/16 at 09:00 Atorvastatin Calcium (Lipitor) 20 mg QHS PO Last administered on 09/09/16 20:59 ; Start 09/01/16 at 21:00 Lisinopril (Prinivil) 10 mg DAILY PO Last administered on 09/10/16 08:03; Start 09/01/16 at 09:00 Multivitamins (Thera-Vit) 1 tab DAILY PO Last administered on 09/10/16 08:06; Start 09/01/16 at 09:00 Olanzapine (Zyprexa Zydis) 2.5 mg PRN Q2HR PRN PO PSYCHOSIS Last administered on 09/08/16 20:05; Start 09/01/16 at 13:15 Vitamin D (Vitamin D3) 50,000 unit WEEKLY PO Last administered on 09/10/16 08: 08; Start 09/03/16 at 09:00; Stop 10/29/16 at 09:01 Escitalopram Oxalate (Lexapro) 5 mg DAILY PO Last administered on 09/07/16 08: 56; Start 09/04/16 at 09:00; Stop 09/07/16 at 13:09; Status DC Quetiapine Fumarate (SEROquel) 25 mg TID PO Last administered on 09/10/16 08:06 ; Start 09/04/16 at 21:00 Neomycin/ Polymyxin/ Bacitracin (Triple Antibiotic Ointment) 1 pkt BID TP Last administered on 09/10/16 08:08; Start 09/05/16 at 21:00 Metformin HCl (Glucophage Xr) 500 mg DAILYWBKFT PO Last administered on 08:03; Start 09/07/16 at 08:00 Buspirone HCl (Buspar) 5 mg BID PO Last administered on 09/07/16 08:56; Start 09/06/16 at 21:00; Stop 09/07/16 at 13:09; Status DC Buspirone HCl (Buspar) 10 mg BID PO Last administered on 09/10/16 08:06; Start 09/07/16 at 21:00 Escitalopram Oxalate (Lexapro) 10 mg DAILY PO Last administered on 09/10/16 08: 06; Start 09/08/16 at 09:00 Active Scripts Active Reported Lorazepam 0.5 Mg Tablet 0.5 Mg PO PRN Q6HRS PRN Acetaminophen 325 Mg Tablet 650 Mg PO PRN Q4HRS PRN Quetiapine Fumarate 25 Mg Tablet 25 Mg PO BID Multi Vitamin Daily (Multivitamin) 1 Each Tablet 1 Each PO DAILY Lisinopril 10 Mg Tablet 10 Mg PO DAILY Atorvastatin Calcium 20 Mg Tablet 20 Mg PO QHS Aspirin 81 Mg Tab.chew 81 Mg PO DAILY Tylenol (Acetaminophen) 325 Mg Tablet 650 Mg PO Q12HR Diagnosis: Problems: (1) Agitation KRISSY MONTES MD Sep 10, 2016 08:40
[2016-09-10 15:38] VITALS: BP 134/77
[2016-09-10] MEDS: ATORVASTATIN CALCIUM 20 MG TABLET PO SCH (19:45)
[2016-09-10] MEDS: MIRTAZAPINE 7.5 MG TABLET. PO SCH (20:07)
[2016-09-11 06:34] VITALS: BP 157/77
[2016-09-11] MEDS: MULTIVITAMINS THERAPEUTIC PO SCH (08:38)
[2016-09-11] MEDS: ESCITALOPRAM 10 MG TABLET. PO SCH (08:39)
[2016-09-11] MEDS: METFORMIN XR 500 MG TAB.ER.24H PO SCH (08:39)
[2016-09-11] MEDS: busPIRone 10 MG TABLET. PO SCH ×2 (08:39→19:42)
[2016-09-11] MEDS: ACETAMINOPHEN 325 MG TABLET PO SCH ×2 (08:39→19:42)
[2016-09-11] MEDS: ASPIRIN 81 MG TAB.CHEW PO SCH (08:39)
[2016-09-11] MEDS: QUEtiapine 25 MG TABLET. PO SCH ×3 (08:39→19:42)
[2016-09-11] MEDS: LISINOPRIL 10 MG TABLET PO SCH (08:41)
[2016-09-11] MEDS: NEOMY/BACITR/POLYMYXIN OINT PACKET. TP SCH ×2 (09:27→19:45)
[2016-09-11 16:25] VITALS: BP 165/80
[2016-09-11] MEDS: ATORVASTATIN CALCIUM 20 MG TABLET PO SCH (19:41)
[2016-09-11] MEDS: MIRTAZAPINE 7.5 MG TABLET. PO SCH (19:42)
--- NOTE | 2016-09-11 20:11 | PDOC ---
Exam Bradley Demential Exam: Bradley Note: Please also refer to the separate dictated note~for this date of service dictated separately.~Patient seen individually. Discussed the patient with Nursing staff reviewed the chart.~Reviewed interim history and current functioning. Reviewed vital signs,~Labs/ Radiology~and current medications noted below. Continue current treatment with the changes noted in the dictated addendum note Assessment: Vital Signs: Vital Signs Date Time Temp Pulse Resp B/P Pulse Ox O2 Delivery O2 Flow Rate FiO2 09/11/16 16:25 97.8 75 16 165/80 92 Room Air 09/07/16 06:18 98.0 I&O Intake and Output 09/11/16 07:00 Intake Total 720 ml Balance 720 ml Intake Oral 720 ml Labs: Laboratory Tests Test 09/11/16 07:15 09/11/16 11:18 09/11/16 11:32 09/11/16 17:02 Glucose (Fingerstick) 129mg/dL (70-99) H 145mg/dL (70-99) H 165mg/dL (70-99) H 108mg/dL (70-99) H Test 09/11/16 19:14 Glucose (Fingerstick) 219mg/dL (70-99) H Current Medications: Meds: Current Medications Ziprasidone (Geodon Im) 10 mg 1X ONCE IM Last administered on 08/31/16 20:55 ; Start 08/31/16 at 20:30; Stop 08/31/16 at 20:31; Status DC Acetaminophen (Tylenol) 650 mg PRN Q6HRS PRN PO PAIN / TEMP; Start 08/31/16 at 21:45 Multi-Ingredient Ointment (Analgesic [place]) 1 regino PRN QID PRN TP MUSCLE PAIN; Start 08/31/16 at 21:45 Al Hydroxide/Mg Hydroxide (Mylanta Plus Xs) 15 ml PRN AFTMEALHC PRN PO DYSPEPSIA; Start 08/31/16 at 21:45 Magnesium Hydroxide (Milk Of Magnesia) 2,400 mg PRN QHS PRN PO CONSTIPATION Last administered on 09/10/16 08:03; Start 08/31/16 at 21:45 Lorazepam (Ativan) 0.5 mg PRN Q6HRS PRN PO ANXIETY Last administered on 21:23; Start 08/31/16 at 22:00 Quetiapine Fumarate (SEROquel) 25 mg BID PO Last administered on 09/04/16 07: 47; Start 09/01/16 at 09:00; Stop 09/04/16 at 15:44; Status DC Pneumoccal 13-Valent Conj Vacc (Prevnar 13) 0.5 ml ONCE ONCE VAX IM ; Start at 09:00; Stop 09/01/16 at 09:01; Status UNV Influenza Virus Vaccine Quadrival (Fluarix Quad 3511-4118 Syringe) 0.5 ml ONCE ONCE VAX IM Last administered on 09/01/16 11:36; Start 09/01/16 at 09:00; Stop 09/01/16 at 09:01; Status DC Info (FLU VACCINE per PROTOCOL) 1 ea PRN 1X PRN MC PER PROTOCOL; Start at 23:45; Status Cancel Pneumococcal Polyvalent Vaccine (Do NOT chart on this entry -- for MONITORING) 1 each PRN 1X PRN MC SEE COMMENTS; Start 08/31/16 at 23:45; Status Cancel Pneumococcal Polyvalent Vaccine (Pneumovax 23) 0.5 ml ONCE ONCE VAX IM Last administered on 09/01/16 11:49; Start 09/01/16 at 09:00; Stop 09/01/16 at 09:01 ; Status DC Acetaminophen (Tylenol) 650 mg Q12HR PO Last administered on 09/11/16 19:42; Start 09/01/16 at 09:00 Aspirin (Children'S Aspirin) 81 mg DAILY PO Last administered on 09/11/16 08:39 ; Start 09/01/16 at 09:00 Atorvastatin Calcium (Lipitor) 20 mg QHS PO Last administered on 09/11/16 19:41 ; Start 09/01/16 at 21:00 Lisinopril (Prinivil) 10 mg DAILY PO Last administered on 09/11/16 08:41; Start 09/01/16 at 09:00 Multivitamins (Thera-Vit) 1 tab DAILY PO Last administered on 09/11/16 08:38; Start 09/01/16 at 09:00 Olanzapine (Zyprexa Zydis) 2.5 mg PRN Q2HR PRN PO PSYCHOSIS Last administered on 09/08/16 20:05; Start 09/01/16 at 13:15 Vitamin D (Vitamin D3) 50,000 unit WEEKLY PO Last administered on 09/10/16 08: 08; Start 09/03/16 at 09:00; Stop 10/29/16 at 09:01 Escitalopram Oxalate (Lexapro) 5 mg DAILY PO Last administered on 09/07/16 08: 56; Start 09/04/16 at 09:00; Stop 09/07/16 at 13:09; Status DC Quetiapine Fumarate (SEROquel) 25 mg TID PO Last administered on 09/11/16 19:42 ; Start 09/04/16 at 21:00 Neomycin/ Polymyxin/ Bacitracin (Triple Antibiotic Ointment) 1 pkt BID TP Last administered on 09/11/16 19:45; Start 09/05/16 at 21:00 Metformin HCl (Glucophage Xr) 500 mg DAILYWBKFT PO Last administered on 08:39; Start 09/07/16 at 08:00 Buspirone HCl (Buspar) 5 mg BID PO Last administered on 09/07/16 08:56; Start 09/06/16 at 21:00; Stop 09/07/16 at 13:09; Status DC Buspirone HCl (Buspar) 10 mg BID PO Last administered on 09/11/16 19:42; Start 09/07/16 at 21:00 Escitalopram Oxalate (Lexapro) 10 mg DAILY PO Last administered on 09/11/16 08: 39; Start 09/08/16 at 09:00 Mirtazapine (Remeron) 7.5 mg QHS PO Last administered on 09/11/16 19:42; Start 09/10/16 at 21:00 Active Scripts Active Reported Lorazepam 0.5 Mg Tablet 0.5 Mg PO PRN Q6HRS PRN Acetaminophen 325 Mg Tablet 650 Mg PO PRN Q4HRS PRN Quetiapine Fumarate 25 Mg Tablet 25 Mg PO BID Multi Vitamin Daily (Multivitamin) 1 Each Tablet 1 Each PO DAILY Lisinopril 10 Mg Tablet 10 Mg PO DAILY Atorvastatin Calcium 20 Mg Tablet 20 Mg PO QHS Aspirin 81 Mg Tab.chew 81 Mg PO DAILY Tylenol (Acetaminophen) 325 Mg Tablet 650 Mg PO Q12HR Diagnosis: Problems: (1) Agitation KRISSY MONTES MD Sep 11, 2016 20:10
[2016-09-12 06:00] VITALS: BP 170/89
[2016-09-12] MEDS: ASPIRIN 81 MG TAB.CHEW PO SCH (08:04)
[2016-09-12] MEDS: ACETAMINOPHEN 325 MG TABLET PO SCH ×2 (08:04→18:55)
[2016-09-12] MEDS: MULTIVITAMINS THERAPEUTIC PO SCH (08:04)
[2016-09-12] MEDS: METFORMIN XR 500 MG TAB.ER.24H PO SCH (08:04)
[2016-09-12] MEDS: busPIRone 10 MG TABLET. PO SCH ×2 (08:04→18:55)
[2016-09-12] MEDS: ESCITALOPRAM 10 MG TABLET. PO SCH (08:04)
[2016-09-12] MEDS: LISINOPRIL 10 MG TABLET PO SCH (08:05)
[2016-09-12] MEDS: QUEtiapine 25 MG TABLET. PO SCH ×3 (08:05→18:55)
[2016-09-12] MEDS: NEOMY/BACITR/POLYMYXIN OINT PACKET. TP SCH ×2 (08:05→18:55)
--- NOTE | 2016-09-12 09:19 | PN ---
DATE: 09/09/2016 PSYCHIATRIC PROGRESS NOTE This late entry for 09/09/2016 covers elements not covered in my initial note. SUBJECTIVE: Per nursing report, the patient has been agitated with nursing staff, paranoid and then does better. REVIEW OF SYSTEMS: No CV, , pulmonary, eye, ENT system symptoms on review. MENTAL STATUS EXAM: Oriented to herself. Insight, judgment, recent and remote memory, attention, concentration, fund of knowledge poor, consistent with her diagnosis mentioned in my initial note. PLAN: Continue Zyprexa p.r.n., Seroquel 25 t.i.d., Ativan p.r.n., Lexapro 10 mg a day, BuSpar 10 b.i.d. Adjust further as clinically indicated. MAN Sonia MONTES MD DR: STEVE/bishop JOB#: [id number] / [id number]
--- NOTE | 2016-09-12 09:26 | PN ---
DATE: 09/10/2016 This is a late entry 09/10/2016 covers elements not covered in my initial note. The patient slept 5-3/4 hours previous night. She took her meds at 2 p.m. and then was agitated. Hyperverbal at times. She had two of her daughters come to visit her over lunch and she was calm for that visit. REVIEW OF SYSTEMS: No CV, , pulmonary, eye, or ENT system symptoms on review. Reliability poor. MENTAL STATUS EXAM: Oriented to herself. Insight, judgment, recent and remote memory, attention, concentration, fund of knowledge poor, consistent with her diagnosis mentioned in my initial note. PLAN: Continue Zyprexa p.r.n., Seroquel 25 t.i.d., Ativan p.r.n., Lexapro 10 mg a day, and BuSpar 10 b.i.d. Start Remeron 7.5 mg at bedtime, both for her insomnia, anxiety, and mood lability. Adjust further as clinically indicated. KRISSY MONTES MD DR: STEVE/bishop JOB#: [id number] / [id number]
[2016-09-12 15:52] VITALS: BP 168/73
[2016-09-12] MEDS: MIRTAZAPINE 7.5 MG TABLET. PO SCH (18:55)
[2016-09-12] MEDS: ATORVASTATIN CALCIUM 20 MG TABLET PO SCH (18:55)
--- NOTE | 2016-09-12 20:10 | PDOC ---
Exam Bradley Demential Exam: Bradley Note: Please also refer to the separate dictated note~for this date of service dictated separately.~Patient seen individually. Discussed the patient with Nursing staff reviewed the chart.~Reviewed interim history and current functioning. Reviewed vital signs,~Labs/ Radiology~and current medications noted below. Continue current treatment with the changes noted in the dictated addendum note Assessment: Vital Signs: Vital Signs Date Time Temp Pulse Resp B/P Pulse Ox O2 Delivery O2 Flow Rate FiO2 09/12/16 15:52 97.9 69 18 168/73 96 09/11/16 16:25 Room Air 09/07/16 06:18 98.0 I&O Intake and Output 09/12/16 07:00 Intake Total 720 ml Balance 720 ml Intake Oral 720 ml Labs: Laboratory Tests Test 09/12/16 11:03 09/12/16 16:10 09/12/16 19:04 Glucose (Fingerstick) 159mg/dL (70-99) H 116mg/dL (70-99) H 168mg/dL (70-99) H Current Medications: Meds: Current Medications Ziprasidone (Geodon Im) 10 mg 1X ONCE IM Last administered on 08/31/16 20:55 ; Start 08/31/16 at 20:30; Stop 08/31/16 at 20:31; Status DC Acetaminophen (Tylenol) 650 mg PRN Q6HRS PRN PO PAIN / TEMP; Start 08/31/16 at 21:45 Multi-Ingredient Ointment (Analgesic [place]) 1 regino PRN QID PRN TP MUSCLE PAIN; Start 08/31/16 at 21:45 Al Hydroxide/Mg Hydroxide (Mylanta Plus Xs) 15 ml PRN AFTMEALHC PRN PO DYSPEPSIA; Start 08/31/16 at 21:45 Magnesium Hydroxide (Milk Of Magnesia) 2,400 mg PRN QHS PRN PO CONSTIPATION Last administered on 09/10/16 08:03; Start 08/31/16 at 21:45 Lorazepam (Ativan) 0.5 mg PRN Q6HRS PRN PO ANXIETY Last administered on 21:23; Start 08/31/16 at 22:00 Quetiapine Fumarate (SEROquel) 25 mg BID PO Last administered on 09/04/16 07: 47; Start 09/01/16 at 09:00; Stop 09/04/16 at 15:44; Status DC Pneumoccal 13-Valent Conj Vacc (Prevnar 13) 0.5 ml ONCE ONCE VAX IM ; Start at 09:00; Stop 09/01/16 at 09:01; Status UNV Influenza Virus Vaccine Quadrival (Fluarix Quad 1183-8204 Syringe) 0.5 ml ONCE ONCE VAX IM Last administered on 09/01/16 11:36; Start 09/01/16 at 09:00; Stop 09/01/16 at 09:01; Status DC Info (FLU VACCINE per PROTOCOL) 1 ea PRN 1X PRN MC PER PROTOCOL; Start at 23:45; Status Cancel Pneumococcal Polyvalent Vaccine (Do NOT chart on this entry -- for MONITORING) 1 each PRN 1X PRN MC SEE COMMENTS; Start 08/31/16 at 23:45; Status Cancel Pneumococcal Polyvalent Vaccine (Pneumovax 23) 0.5 ml ONCE ONCE VAX IM Last administered on 09/01/16 11:49; Start 09/01/16 at 09:00; Stop 09/01/16 at 09:01 ; Status DC Acetaminophen (Tylenol) 650 mg Q12HR PO Last administered on 09/12/16 18:55; Start 09/01/16 at 09:00 Aspirin (Children'S Aspirin) 81 mg DAILY PO Last administered on 09/12/16 08:04 ; Start 09/01/16 at 09:00 Atorvastatin Calcium (Lipitor) 20 mg QHS PO Last administered on 09/12/16 18:55 ; Start 09/01/16 at 21:00 Lisinopril (Prinivil) 10 mg DAILY PO Last administered on 09/12/16 08:05; Start 09/01/16 at 09:00 Multivitamins (Thera-Vit) 1 tab DAILY PO Last administered on 09/12/16 08:04; Start 09/01/16 at 09:00 Olanzapine (Zyprexa Zydis) 2.5 mg PRN Q2HR PRN PO PSYCHOSIS Last administered on 09/08/16 20:05; Start 09/01/16 at 13:15 Vitamin D (Vitamin D3) 50,000 unit WEEKLY PO Last administered on 09/10/16 08: 08; Start 09/03/16 at 09:00; Stop 10/29/16 at 09:01 Escitalopram Oxalate (Lexapro) 5 mg DAILY PO Last administered on 09/07/16 08: 56; Start 09/04/16 at 09:00; Stop 09/07/16 at 13:09; Status DC Quetiapine Fumarate (SEROquel) 25 mg TID PO Last administered on 09/12/16 18:55 ; Start 09/04/16 at 21:00 Neomycin/ Polymyxin/ Bacitracin (Triple Antibiotic Ointment) 1 pkt BID TP Last administered on 09/12/16 18:55; Start 09/05/16 at 21:00 Metformin HCl (Glucophage Xr) 500 mg DAILYWBKFT PO Last administered on 08:04; Start 09/07/16 at 08:00 Buspirone HCl (Buspar) 5 mg BID PO Last administered on 09/07/16 08:56; Start 09/06/16 at 21:00; Stop 09/07/16 at 13:09; Status DC Buspirone HCl (Buspar) 10 mg BID PO Last administered on 09/12/16 18:55; Start 09/07/16 at 21:00 Escitalopram Oxalate (Lexapro) 10 mg DAILY PO Last administered on 09/12/16 08: 04; Start 09/08/16 at 09:00 Mirtazapine (Remeron) 7.5 mg QHS PO Last administered on 09/12/16 18:55; Start 09/10/16 at 21:00 Active Scripts Active Reported Lorazepam 0.5 Mg Tablet 0.5 Mg PO PRN Q6HRS PRN Acetaminophen 325 Mg Tablet 650 Mg PO PRN Q4HRS PRN Quetiapine Fumarate 25 Mg Tablet 25 Mg PO BID Multi Vitamin Daily (Multivitamin) 1 Each Tablet 1 Each PO DAILY Lisinopril 10 Mg Tablet 10 Mg PO DAILY Atorvastatin Calcium 20 Mg Tablet 20 Mg PO QHS Aspirin 81 Mg Tab.chew 81 Mg PO DAILY Tylenol (Acetaminophen) 325 Mg Tablet 650 Mg PO Q12HR Diagnosis: Problems: (1) Agitation KRISSY MONTES MD Sep 12, 2016 20:10
[2016-09-13 06:14] VITALS: BP 168/84
--- NOTE | 2016-09-13 07:30 | PN ---
DATE: 09/11/2016 PSYCHIATRIC PROGRESS NOTE This is a late entry 09/11/2016, covers elements not covered in my initial note. SUBJECTIVE: Overall, the patient remains extremely confused, oblivious of her surroundings, sometimes refuses to go to the dining room for her meals, stays in the periphery of activities, but does join in, but not interactive. No PRNs noted. Blood sugar is stable. REVIEW OF SYSTEMS: No CV, , pulmonary, eye, ENT system symptoms on review. Reliability poor. MENTAL STATUS EXAM: Oriented to herself. Insight, judgment, recent and remote memory, attention, concentration, fund of knowledge poor, consistent with her diagnosis mentioned in the initial note. PLAN: Continue Seroquel, Ativan p.r.n., Lexapro 10 mg a day, BuSpar 10 mg b.i.d., Remeron 7.5 mg at bedtime, Zyprexa p.r.n. Adjust further as clinically indicated. KRISSY MONTES MD DR: STEVE/bishop JOB#: [id number] / [id number]
[2016-09-13] MEDS: METFORMIN XR 500 MG TAB.ER.24H PO SCH (07:58)
[2016-09-13] MEDS: busPIRone 10 MG TABLET. PO SCH ×2 (08:02→19:26)
[2016-09-13] MEDS: ESCITALOPRAM 10 MG TABLET. PO SCH (08:02)
[2016-09-13] MEDS: LISINOPRIL 10 MG TABLET PO SCH (08:02)
[2016-09-13] MEDS: MULTIVITAMINS THERAPEUTIC PO SCH (08:03)
[2016-09-13] MEDS: ACETAMINOPHEN 325 MG TABLET PO SCH ×2 (08:03→19:25)
[2016-09-13] MEDS: ASPIRIN 81 MG TAB.CHEW PO SCH (08:03)
[2016-09-13] MEDS: QUEtiapine 25 MG TABLET. PO SCH ×3 (08:03→19:26)
--- NOTE | 2016-09-13 08:04 | PDOC ---
Exam Bradley Demential Exam: Bradley Note: Please also refer to the separate dictated note~for this date of service dictated separately.~Patient seen individually. Discussed the patient with Nursing staff reviewed the chart.~Reviewed interim history and current functioning. Reviewed vital signs,~Labs/ Radiology~and current medications noted below. Continue current treatment with the changes noted in the dictated addendum note Assessment: Vital Signs: Vital Signs Date Time Temp Pulse Resp B/P Pulse Ox O2 Delivery O2 Flow Rate FiO2 09/13/16 06:14 98.2 68 18 168/84 95 09/11/16 16:25 Room Air I&O Intake and Output 09/13/16 07:00 Intake Total 840 ml Balance 840 ml Intake Oral 840 ml Labs: Laboratory Tests Test 09/12/16 11:03 09/12/16 16:10 09/12/16 19:04 09/13/16 07:21 Glucose (Fingerstick) 159mg/dL (70-99) H 116mg/dL (70-99) H 168mg/dL (70-99) H 129mg/dL (70-99) H Current Medications: Meds: Current Medications Ziprasidone (Geodon Im) 10 mg 1X ONCE IM Last administered on 08/31/16 20:55 ; Start 08/31/16 at 20:30; Stop 08/31/16 at 20:31; Status DC Acetaminophen (Tylenol) 650 mg PRN Q6HRS PRN PO PAIN / TEMP; Start 08/31/16 at 21:45 Multi-Ingredient Ointment (Analgesic [place]) 1 regino PRN QID PRN TP MUSCLE PAIN; Start 08/31/16 at 21:45 Al Hydroxide/Mg Hydroxide (Mylanta Plus Xs) 15 ml PRN AFTMEALHC PRN PO DYSPEPSIA; Start 08/31/16 at 21:45 Magnesium Hydroxide (Milk Of Magnesia) 2,400 mg PRN QHS PRN PO CONSTIPATION Last administered on 09/10/16 08:03; Start 08/31/16 at 21:45 Lorazepam (Ativan) 0.5 mg PRN Q6HRS PRN PO ANXIETY Last administered on 21:23; Start 08/31/16 at 22:00 Quetiapine Fumarate (SEROquel) 25 mg BID PO Last administered on 09/04/16 07: 47; Start 09/01/16 at 09:00; Stop 09/04/16 at 15:44; Status DC Pneumoccal 13-Valent Conj Vacc (Prevnar 13) 0.5 ml ONCE ONCE VAX IM ; Start at 09:00; Stop 09/01/16 at 09:01; Status UNV Influenza Virus Vaccine Quadrival (Fluarix Quad [id number] Syringe) 0.5 ml ONCE ONCE VAX IM Last administered on 09/01/16 11:36; Start 09/01/16 at 09:00; Stop 09/01/16 at 09:01; Status DC Info (FLU VACCINE per PROTOCOL) 1 ea PRN 1X PRN MC PER PROTOCOL; Start at 23:45; Status Cancel Pneumococcal Polyvalent Vaccine (Do NOT chart on this entry -- for MONITORING) 1 each PRN 1X PRN MC SEE COMMENTS; Start 08/31/16 at 23:45; Status Cancel Pneumococcal Polyvalent Vaccine (Pneumovax 23) 0.5 ml ONCE ONCE VAX IM Last administered on 09/01/16 11:49; Start 09/01/16 at 09:00; Stop 09/01/16 at 09:01 ; Status DC Acetaminophen (Tylenol) 650 mg Q12HR PO Last administered on 09/12/16 18:55; Start 09/01/16 at 09:00 Aspirin (Children'S Aspirin) 81 mg DAILY PO Last administered on 09/12/16 08:04 ; Start 09/01/16 at 09:00 Atorvastatin Calcium (Lipitor) 20 mg QHS PO Last administered on 09/12/16 18:55 ; Start 09/01/16 at 21:00 Lisinopril (Prinivil) 10 mg DAILY PO Last administered on 09/12/16 08:05; Start 09/01/16 at 09:00 Multivitamins (Thera-Vit) 1 tab DAILY PO Last administered on 09/12/16 08:04; Start 09/01/16 at 09:00 Olanzapine (Zyprexa Zydis) 2.5 mg PRN Q2HR PRN PO PSYCHOSIS Last administered on 09/08/16 20:05; Start 09/01/16 at 13:15 Vitamin D (Vitamin D3) 50,000 unit WEEKLY PO Last administered on 09/10/16 08: 08; Start 09/03/16 at 09:00; Stop 10/29/16 at 09:01 Escitalopram Oxalate (Lexapro) 5 mg DAILY PO Last administered on 09/07/16 08: 56; Start 09/04/16 at 09:00; Stop 09/07/16 at 13:09; Status DC Quetiapine Fumarate (SEROquel) 25 mg TID PO Last administered on 09/12/16 18:55 ; Start 09/04/16 at 21:00 Neomycin/ Polymyxin/ Bacitracin (Triple Antibiotic Ointment) 1 pkt BID TP Last administered on 09/12/16 18:55; Start 09/05/16 at 21:00 Metformin HCl (Glucophage Xr) 500 mg DAILYWBKFT PO Last administered on 08:04; Start 09/07/16 at 08:00 Buspirone HCl (Buspar) 5 mg BID PO Last administered on 09/07/16 08:56; Start 09/06/16 at 21:00; Stop 09/07/16 at 13:09; Status DC Buspirone HCl (Buspar) 10 mg BID PO Last administered on 09/12/16 18:55; Start 09/07/16 at 21:00 Escitalopram Oxalate (Lexapro) 10 mg DAILY PO Last administered on 09/12/16 08: 04; Start 09/08/16 at 09:00 Mirtazapine (Remeron) 7.5 mg QHS PO Last administered on 09/12/16 18:55; Start 09/10/16 at 21:00 Active Scripts Active Reported Lorazepam 0.5 Mg Tablet 0.5 Mg PO PRN Q6HRS PRN Acetaminophen 325 Mg Tablet 650 Mg PO PRN Q4HRS PRN Quetiapine Fumarate 25 Mg Tablet 25 Mg PO BID Multi Vitamin Daily (Multivitamin) 1 Each Tablet 1 Each PO DAILY Lisinopril 10 Mg Tablet 10 Mg PO DAILY Atorvastatin Calcium 20 Mg Tablet 20 Mg PO QHS Aspirin 81 Mg Tab.chew 81 Mg PO DAILY Tylenol (Acetaminophen) 325 Mg Tablet 650 Mg PO Q12HR Diagnosis: Problems: (1) Agitation KRISSY MONTES MD Sep 13, 2016 08:04
[2016-09-13] MEDS: NEOMY/BACITR/POLYMYXIN OINT PACKET. TP SCH ×2 (08:05→19:25)
[2016-09-13 16:18] VITALS: BP 172/96
[2016-09-13] MEDS: OLANZAPINE ZYDIS 5 MG TAB.RAPDIS PO PRN (16:58)
[2016-09-13] MEDS: ATORVASTATIN CALCIUM 20 MG TABLET PO SCH (19:25)
[2016-09-13] MEDS: MIRTAZAPINE 7.5 MG TABLET. PO SCH (19:25)
--- NOTE | 2016-09-13 21:49 | PN ---
DATE: 09/12/2016 This is a late entry for 09/12/2016, covers elements not covered in my initial note of 09/12/2016. SUBJECTIVE: Per nursing report, the patient has been resistant to taking her medications, though she took them later in the morning at 11:00 a.m. and then was agitated, trying to bite staff when staff tried to take crayons away from her which is a part of the activity, after the activity had completed. Later in the day, she took her medications whole. REVIEW OF SYSTEMS: No CV, , pulmonary, eye, ENT system symptoms on review. Reliability poor. MENTAL STATUS EXAM: Oriented to herself. Insight, judgment, recent and remote memory, attention, concentration, fund of knowledge poor, consistent with her diagnosis. She is quite oblivious of circumstances around her, but pleasant, smiling as I met with her, though little suspicious. LABORATORY DATA: Reviewed. IMPRESSION: Major neurocognitive disorder, Alzheimer, vascular with depression, delusion, behavioral disturbance. Rest diagnoses unchanged. PLAN: Continue current psychotropics mentioned in my initial note including BuSpar 10 b.i.d., Remeron 7.5 at bedtime, Lexapro 10 mg a day, Ativan p.r.n., Seroquel 25 mg t.i.d., Zyprexa p.r.n. May need to increase Seroquel if agitation and paranoia persists. KRISSY MONTES MD DR: STEVE/bishop JOB#: [id number] / [id number]
[2016-09-14 05:59] VITALS: BP 115/65
[2016-09-14] MEDS: NEOMY/BACITR/POLYMYXIN OINT PACKET. TP SCH ×2 (09:00→19:32)
[2016-09-14] MEDS: LISINOPRIL 10 MG TABLET PO SCH (09:00)
[2016-09-14] MEDS: ESCITALOPRAM 10 MG TABLET. PO SCH (09:12)
[2016-09-14] MEDS: ASPIRIN 81 MG TAB.CHEW PO SCH (09:12)
[2016-09-14] MEDS: MULTIVITAMINS THERAPEUTIC PO SCH (09:14)
[2016-09-14] MEDS: QUEtiapine 25 MG TABLET. PO SCH ×3 (09:14→19:27)
[2016-09-14] MEDS: METFORMIN XR 500 MG TAB.ER.24H PO SCH (09:14)
[2016-09-14] MEDS: busPIRone 10 MG TABLET. PO SCH ×2 (09:14→19:24)
[2016-09-14] MEDS: ACETAMINOPHEN 325 MG TABLET PO SCH ×2 (09:15→19:27)
[2016-09-14 09:20] LABS: BASO # 0.1 x10^3/uL (0.0-0.2); BASO % 1 % (0-3); EOS # 0.3 x10^3/uL (0.0-0.7); EOS % 3 % (0-3); HEMATOCRIT 43.1 % (36.0-47.0); HEMOGLOBIN 14.4 g/dL (12.0-15.5); LYMPH # 2.4 x10^3/uL (1.0-4.8); LYMPH % 29 % (24-48); MEAN CORPUSCULAR HEMOGLOBIN 32 pg (25-35); MEAN CORPUSCULAR HGB CONC 33 g/dL (31-37); MEAN CORPUSCULAR VOLUME 95 fL (79-100); MONO # 0.7 x10^3/uL (0.0-1.1); MONO % 8 % (0-9); NEUT % 59 % (31-73); PLATELET COUNT 254 x10^3/uL (140-400); RED BLOOD COUNT 4.56 x10^6/uL (3.50-5.40); RED CELL DISTRIBUTION WIDTH 13.4 % (11.5-14.5); WHITE BLOOD COUNT 8.4 x10^3/uL (4.0-11.0)
[2016-09-14] MEDS: OLANZAPINE ZYDIS 5 MG TAB.RAPDIS PO PRN (09:22)
[2016-09-14 09:34] LABS: ALBUMIN 3.5 g/dL (3.4-5.0); ALBUMIN/GLOBULIN RATIO 0.9 (1.0-1.7); CALCIUM 9.2 mg/dL (8.5-10.1); GFR 53.2; POTASSIUM 4.1 mmol/L (3.5-5.1); TOTAL BILIRUBIN 1.1 mg/dL (0.2-1.0); TOTAL PROTEIN 7.4 g/dL (6.4-8.2)
[2016-09-14 16:13] VITALS: BP 151/96
[2016-09-14] MEDS: MIRTAZAPINE 7.5 MG TABLET. PO SCH (19:27)
[2016-09-14] MEDS: ATORVASTATIN CALCIUM 20 MG TABLET PO SCH (19:27)
--- NOTE | 2016-09-15 06:10 | PN ---
DATE: 09/13/2016 SUBJECTIVE: This entry covers elements not covered in my initial note of 09/13/2016. Per nursing report, the patient is agitated the previous evening, Zyprexa Zydis had to be syringed. She is pacing, anxious, restless and easily frustrated. REVIEW OF SYSTEMS: No CV, , pulmonary, eye, ENT system symptoms on review. Reliability poor. MENTAL STATUS EXAM: Oriented to herself. Insight, judgment, recent and remote memory, attention, concentration, fund of knowledge poor, consistent with her diagnosis. LABORATORY DATA: Reviewed. IMPRESSION: Major neurocognitive disorder, Alzheimer, vascular with depression, delusion and behavioral disturbance; anxiety disorder, unspecified; impulse control disorder, unspecified. PLAN: Increase Seroquel from 25 mg 3 times a day to 37.5 mg 3 times a day and continue Zyprexa p.r.n., Ativan p.r.n., Lexapro 10 mg a day, BuSpar 10 b.i.d., Remeron 7.5 mg at bedtime. Adjust further as clinically indicated. MAN Sonia MONTES MD DR: STEVE/bishop JOB#: [id number] / [id number]
[2016-09-15 06:32] VITALS: BP 155/67
[2016-09-15] MEDS: METFORMIN XR 500 MG TAB.ER.24H PO SCH (08:00)
[2016-09-15] MEDS: NEOMY/BACITR/POLYMYXIN OINT PACKET. TP SCH ×2 (09:00→21:15)
[2016-09-15] MEDS: LISINOPRIL 10 MG TABLET PO SCH (09:00)
[2016-09-15] MEDS: ACETAMINOPHEN 325 MG TABLET PO SCH ×2 (09:00→19:29)
[2016-09-15] MEDS: MULTIVITAMIN with MINERAL TABLET. PO SCH (09:00)
[2016-09-15] MEDS: ASPIRIN 81 MG TAB.CHEW PO SCH (09:00)
[2016-09-15] MEDS: QUEtiapine 25 MG TABLET. PO SCH ×2 (11:32→12:40)
[2016-09-15] MEDS: busPIRone 10 MG TABLET. PO SCH ×2 (11:32→19:25)
[2016-09-15] MEDS: ESCITALOPRAM 10 MG TABLET. PO SCH (11:33)
[2016-09-15 15:27] VITALS: BP 159/67
[2016-09-15] MEDS: MIRTAZAPINE 7.5 MG TABLET. PO SCH (19:25)
[2016-09-15] MEDS: ATORVASTATIN CALCIUM 20 MG TABLET PO SCH (19:25)
--- NOTE | 2016-09-15 20:48 | PDOC ---
Exam Bradley Demential Exam: Bradley Note: Please also refer to the separate dictated note~for this date of service dictated separately.~Patient seen individually. Discussed the patient with Nursing staff reviewed the chart.~Reviewed interim history and current functioning. Reviewed vital signs,~Labs/ Radiology~and current medications noted below. Continue current treatment with the changes noted in the dictated addendum note Assessment: Vital Signs: Vital Signs Date Time Temp Pulse Resp B/P Pulse Ox O2 Delivery O2 Flow Rate FiO2 09/15/16 15:27 97.1 62 18 159/67 97 09/15/16 06:32 Room Air I&O Intake and Output 09/15/16 07:00 Intake Total 600 ml Balance 600 ml Intake Oral 600 ml Labs: Laboratory Tests Test 09/15/16 08:09 09/15/16 11:28 09/15/16 16:52 09/15/16 19:03 Glucose (Fingerstick) 134mg/dL (70-99) H 103mg/dL (70-99) H 119mg/dL (70-99) H 232mg/dL (70-99) H Current Medications: Meds: Current Medications Ziprasidone (Geodon Im) 10 mg 1X ONCE IM Last administered on 08/31/16 20:55 ; Start 08/31/16 at 20:30; Stop 08/31/16 at 20:31; Status DC Acetaminophen (Tylenol) 650 mg PRN Q6HRS PRN PO PAIN / TEMP; Start 08/31/16 at 21:45 Multi-Ingredient Ointment (Analgesic [place]) 1 regino PRN QID PRN TP MUSCLE PAIN; Start 08/31/16 at 21:45 Al Hydroxide/Mg Hydroxide (Mylanta Plus Xs) 15 ml PRN AFTMEALHC PRN PO DYSPEPSIA; Start 08/31/16 at 21:45 Magnesium Hydroxide (Milk Of Magnesia) 2,400 mg PRN QHS PRN PO CONSTIPATION Last administered on 09/10/16 08:03; Start 08/31/16 at 21:45 Lorazepam (Ativan) 0.5 mg PRN Q6HRS PRN PO ANXIETY Last administered on 21:23; Start 08/31/16 at 22:00 Quetiapine Fumarate (SEROquel) 25 mg BID PO Last administered on 09/04/16 07: 47; Start 09/01/16 at 09:00; Stop 09/04/16 at 15:44; Status DC Pneumoccal 13-Valent Conj Vacc (Prevnar 13) 0.5 ml ONCE ONCE VAX IM ; Start at 09:00; Stop 09/01/16 at 09:01; Status UNV Influenza Virus Vaccine Quadrival (Fluarix Quad 9523-8899 Syringe) 0.5 ml ONCE ONCE VAX IM Last administered on 09/01/16 11:36; Start 09/01/16 at 09:00; Stop 09/01/16 at 09:01; Status DC Info (FLU VACCINE per PROTOCOL) 1 ea PRN 1X PRN MC PER PROTOCOL; Start at 23:45; Status Cancel Pneumococcal Polyvalent Vaccine (Do NOT chart on this entry -- for MONITORING) 1 each PRN 1X PRN MC SEE COMMENTS; Start 08/31/16 at 23:45; Status Cancel Pneumococcal Polyvalent Vaccine (Pneumovax 23) 0.5 ml ONCE ONCE VAX IM Last administered on 09/01/16 11:49; Start 09/01/16 at 09:00; Stop 09/01/16 at 09:01 ; Status DC Acetaminophen (Tylenol) 650 mg Q12HR PO Last administered on 09/15/16 19:29; Start 09/01/16 at 09:00 Aspirin (Children'S Aspirin) 81 mg DAILY PO Last administered on 09/14/16 09:12 ; Start 09/01/16 at 09:00 Atorvastatin Calcium (Lipitor) 20 mg QHS PO Last administered on 09/15/16 19: 25; Start 09/01/16 at 21:00 Lisinopril (Prinivil) 10 mg DAILY PO Last administered on 09/13/16 08:02; Start 09/01/16 at 09:00 Multivitamins (Thera-Vit) 1 tab DAILY PO Last administered on 09/14/16 09:14; Start 09/01/16 at 09:00; Stop 09/14/16 at 16:38; Status DC Olanzapine (Zyprexa Zydis) 2.5 mg PRN Q2HR PRN PO PSYCHOSIS Last administered on 09/14/16 09:22; Start 09/01/16 at 13:15 Vitamin D (Vitamin D3) 50,000 unit WEEKLY PO Last administered on 09/10/16 08: 08; Start 09/03/16 at 09:00; Stop 10/29/16 at 09:01 Escitalopram Oxalate (Lexapro) 5 mg DAILY PO Last administered on 09/07/16 08: 56; Start 09/04/16 at 09:00; Stop 09/07/16 at 13:09; Status DC Quetiapine Fumarate (SEROquel) 25 mg TID PO Last administered on 09/13/16 14:13 ; Start 09/04/16 at 21:00; Stop 09/13/16 at 17:59; Status DC Neomycin/ Polymyxin/ Bacitracin (Triple Antibiotic Ointment) 1 pkt BID TP Last administered on 09/14/16 19:32; Start 09/05/16 at 21:00 Metformin HCl (Glucophage Xr) 500 mg DAILYWBKFT PO Last administered on 09:14; Start 09/07/16 at 08:00 Buspirone HCl (Buspar) 5 mg BID PO Last administered on 09/07/16 08:56; Start 09/06/16 at 21:00; Stop 09/07/16 at 13:09; Status DC Buspirone HCl (Buspar) 10 mg BID PO Last administered on 09/15/16 19:25; Start 09/07/16 at 21:00 Escitalopram Oxalate (Lexapro) 10 mg DAILY PO Last administered on 09/15/16 11 :33; Start 09/08/16 at 09:00 Mirtazapine (Remeron) 7.5 mg QHS PO Last administered on 09/15/16 19:25; Start 09/10/16 at 21:00 Quetiapine Fumarate (SEROquel) 37.5 mg TID PO Last administered on 09/15/16 11 :32; Start 09/13/16 at 21:00; Stop 09/15/16 at 18:02; Status DC Multivitamins/ Calcium (Thera-M Plus) 1 tab DAILY PO ; Start 09/15/16 at 09:00 Risperidone (Risperdal) 0.25 mg [id number] SL ; Start 09/16/16 at 09:00 Active Scripts Active Reported Lorazepam 0.5 Mg Tablet 0.5 Mg PO PRN Q6HRS PRN Acetaminophen 325 Mg Tablet 650 Mg PO PRN Q4HRS PRN Quetiapine Fumarate 25 Mg Tablet 25 Mg PO BID Multi Vitamin Daily (Multivitamin) 1 Each Tablet 1 Each PO DAILY Lisinopril 10 Mg Tablet 10 Mg PO DAILY Atorvastatin Calcium 20 Mg Tablet 20 Mg PO QHS Aspirin 81 Mg Tab.chew 81 Mg PO DAILY Tylenol (Acetaminophen) 325 Mg Tablet 650 Mg PO Q12HR Diagnosis: Problems: (1) Anxiety disorder (2) Impulse control disorder (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
[2016-09-15] MEDS: OLANZAPINE ZYDIS 5 MG TAB.RAPDIS PO PRN (20:53)
[2016-09-16 05:47] VITALS: BP 166/63
[2016-09-16] MEDS: LISINOPRIL 10 MG TABLET PO SCH (08:52)
[2016-09-16] MEDS: ACETAMINOPHEN 325 MG TABLET PO SCH ×2 (08:52→19:30)
[2016-09-16] MEDS: ASPIRIN 81 MG TAB.CHEW PO SCH (08:52)
[2016-09-16] MEDS: ESCITALOPRAM 10 MG TABLET. PO SCH (08:52)
[2016-09-16] MEDS: METFORMIN XR 500 MG TAB.ER.24H PO SCH (08:52)
[2016-09-16] MEDS: MULTIVITAMIN with MINERAL TABLET. PO SCH (08:53)
[2016-09-16] MEDS: busPIRone 10 MG TABLET. PO SCH ×2 (08:53→19:30)
[2016-09-16] MEDS: risperiDONE ORAL 1 MG/ML 30ml BOTTLE. SL SCH ×2 (08:54→16:29)
[2016-09-16 15:18] VITALS: BP 135/74
--- NOTE | 2016-09-16 17:51 | PN ---
DATE: 09/14/2016 PSYCHIATRIC PROGRESS NOTE This is a late entry of 09/14/2016. SUBJECTIVE: The patient was seen on rounds the evening of 09/14/2016. Discussed with staff, reviewed the chart. The patient was also staffed at treatment team meeting with the entire team morning of 09/14/2016. The patient's daughter, Aurora attended this. We reviewed the patient's history at length, diagnosis, treatment. She is sleeping about 8 hours. Temperature 97.8, BP 115/65, pulse 68. Appetite is fair. Labs on 09/14/2016 are unremarkable. She gets agitated, the staff during showers. Earlier in the day on 09/14/2016, she is paranoid, suspicious, pankaj her fist back to strike at a nursing staff when they were trying to assist her. REVIEW OF SYSTEMS: No CV, , pulmonary, eye, ENT system symptoms on review. MENTAL STATUS EXAM: Oriented to herself. Insight, judgment, recent and remote memory, attention, concentration, fund of knowledge poor, consistent with her diagnosis. IMPRESSION: Major neurocognitive disorder, Alzheimer, vascular with depression, delusions and behavioral disturbance. Rest diagnosis unchanged. PLAN: Continue Zyprexa p.r.n., Seroquel 37.5 t.i.d., Ativan p.r.n., Lexapro 10 mg a day, BuSpar 10 b.i.d., Remeron 7.5 mg at bedtime. Adjust further as clinically indicated. KRISSY MONTES MD DR: STEVE/bishop JOB#: [id number] / [id number]
--- NOTE | 2016-09-16 18:22 | PDOC ---
Exam Bradley Demential Exam: Bradley Note: Please also refer to the separate dictated note~for this date of service dictated separately.~Patient seen individually. Discussed the patient with Nursing staff reviewed the chart.~Reviewed interim history and current functioning. Reviewed vital signs,~Labs/ Radiology~and current medications noted below. Continue current treatment with the changes noted in the dictated addendum note Assessment: Vital Signs: Vital Signs Date Time Temp Pulse Resp B/P Pulse Ox O2 Delivery O2 Flow Rate FiO2 09/16/16 15:18 98.2 78 16 135/74 93 Room Air I&O Intake and Output 09/16/16 07:00 Intake Total 240 ml Balance 240 ml Intake Oral 240 ml Labs: Laboratory Tests Test 09/15/16 19:03 09/16/16 07:41 09/16/16 11:42 09/16/16 16:53 Glucose (Fingerstick) 232mg/dL (70-99) H 129mg/dL (70-99) H 155mg/dL (70-99) H 139mg/dL (70-99) H Current Medications: Meds: Current Medications Ziprasidone (Geodon Im) 10 mg 1X ONCE IM Last administered on 08/31/16 20:55 ; Start 08/31/16 at 20:30; Stop 08/31/16 at 20:31; Status DC Acetaminophen (Tylenol) 650 mg PRN Q6HRS PRN PO PAIN / TEMP; Start 08/31/16 at 21:45 Multi-Ingredient Ointment (Analgesic [place]) 1 regino PRN QID PRN TP MUSCLE PAIN; Start 08/31/16 at 21:45 Al Hydroxide/Mg Hydroxide (Mylanta Plus Xs) 15 ml PRN AFTMEALHC PRN PO DYSPEPSIA; Start 08/31/16 at 21:45 Magnesium Hydroxide (Milk Of Magnesia) 2,400 mg PRN QHS PRN PO CONSTIPATION Last administered on 09/10/16 08:03; Start 08/31/16 at 21:45 Lorazepam (Ativan) 0.5 mg PRN Q6HRS PRN PO ANXIETY Last administered on 21:23; Start 08/31/16 at 22:00 Quetiapine Fumarate (SEROquel) 25 mg BID PO Last administered on 09/04/16 07: 47; Start 09/01/16 at 09:00; Stop 09/04/16 at 15:44; Status DC Pneumoccal 13-Valent Conj Vacc (Prevnar 13) 0.5 ml ONCE ONCE VAX IM ; Start at 09:00; Stop 09/01/16 at 09:01; Status UNV Influenza Virus Vaccine Quadrival (Fluarix Quad [id number] Syringe) 0.5 ml ONCE ONCE VAX IM Last administered on 09/01/16 11:36; Start 09/01/16 at 09:00; Stop 09/01/16 at 09:01; Status DC Info (FLU VACCINE per PROTOCOL) 1 ea PRN 1X PRN MC PER PROTOCOL; Start at 23:45; Status Cancel Pneumococcal Polyvalent Vaccine (Do NOT chart on this entry -- for MONITORING) 1 each PRN 1X PRN MC SEE COMMENTS; Start 08/31/16 at 23:45; Status Cancel Pneumococcal Polyvalent Vaccine (Pneumovax 23) 0.5 ml ONCE ONCE VAX IM Last administered on 09/01/16 11:49; Start 09/01/16 at 09:00; Stop 09/01/16 at 09:01 ; Status DC Acetaminophen (Tylenol) 650 mg Q12HR PO Last administered on 09/16/16 08:52; Start 09/01/16 at 09:00 Aspirin (Children'S Aspirin) 81 mg DAILY PO Last administered on 09/16/16 08: 52; Start 09/01/16 at 09:00 Atorvastatin Calcium (Lipitor) 20 mg QHS PO Last administered on 09/15/16 19: 25; Start 09/01/16 at 21:00 Lisinopril (Prinivil) 10 mg DAILY PO Last administered on 09/16/16 08:52; Start 09/01/16 at 09:00 Multivitamins (Thera-Vit) 1 tab DAILY PO Last administered on 09/14/16 09:14; Start 09/01/16 at 09:00; Stop 09/14/16 at 16:38; Status DC Olanzapine (Zyprexa Zydis) 2.5 mg PRN Q2HR PRN PO PSYCHOSIS Last administered on 09/15/16 20:53; Start 09/01/16 at 13:15 Vitamin D (Vitamin D3) 50,000 unit WEEKLY PO Last administered on 09/10/16 08: 08; Start 09/03/16 at 09:00; Stop 10/29/16 at 09:01 Escitalopram Oxalate (Lexapro) 5 mg DAILY PO Last administered on 09/07/16 08: 56; Start 09/04/16 at 09:00; Stop 09/07/16 at 13:09; Status DC Quetiapine Fumarate (SEROquel) 25 mg TID PO Last administered on 09/13/16 14:13 ; Start 09/04/16 at 21:00; Stop 09/13/16 at 17:59; Status DC Neomycin/ Polymyxin/ Bacitracin (Triple Antibiotic Ointment) 1 pkt BID TP Last administered on 09/15/16 21:15; Start 09/05/16 at 21:00; Stop 09/15/16 at 21:18 ; Status DC Metformin HCl (Glucophage Xr) 500 mg DAILYWBKFT PO Last administered on 08:52; Start 09/07/16 at 08:00 Buspirone HCl (Buspar) 5 mg BID PO Last administered on 09/07/16 08:56; Start 09/06/16 at 21:00; Stop 09/07/16 at 13:09; Status DC Buspirone HCl (Buspar) 10 mg BID PO Last administered on 09/16/16 08:53; Start 09/07/16 at 21:00 Escitalopram Oxalate (Lexapro) 10 mg DAILY PO Last administered on 09/16/16 08 :52; Start 09/08/16 at 09:00 Mirtazapine (Remeron) 7.5 mg QHS PO Last administered on 09/15/16 19:25; Start 09/10/16 at 21:00 Quetiapine Fumarate (SEROquel) 37.5 mg TID PO Last administered on 09/15/16 11 :32; Start 09/13/16 at 21:00; Stop 09/15/16 at 18:02; Status DC Multivitamins/ Calcium (Thera-M Plus) 1 tab DAILY PO Last administered on 08:53; Start 09/15/16 at 09:00 Risperidone (Risperdal) 0.25 mg [id number] SL Last administered on 09/16/16t 16:29; Start 09/16/16 at 09:00 Active Scripts Active Reported Lorazepam 0.5 Mg Tablet 0.5 Mg PO PRN Q6HRS PRN Acetaminophen 325 Mg Tablet 650 Mg PO PRN Q4HRS PRN Quetiapine Fumarate 25 Mg Tablet 25 Mg PO BID Multi Vitamin Daily (Multivitamin) 1 Each Tablet 1 Each PO DAILY Lisinopril 10 Mg Tablet 10 Mg PO DAILY Atorvastatin Calcium 20 Mg Tablet 20 Mg PO QHS Aspirin 81 Mg Tab.chew 81 Mg PO DAILY Tylenol (Acetaminophen) 325 Mg Tablet 650 Mg PO Q12HR Diagnosis: Problems: (1) Dementia in Alzheimer's disease with delusions (2) Dementia in Alzheimer's disease with depression (3) Dementia, vascular, with delusions (4) Dementia, vascular, with depression (5) Impulse control disorder (6) Anxiety disorder KRISSY MONTES MD Sep 16, 2016 18:22
[2016-09-16] MEDS: ATORVASTATIN CALCIUM 20 MG TABLET PO SCH (19:30)
[2016-09-16] MEDS: MIRTAZAPINE 7.5 MG TABLET. PO SCH (19:30)
[2016-09-17 05:50] VITALS: BP 131/66
[2016-09-17] MEDS: METFORMIN XR 500 MG TAB.ER.24H PO SCH ×2 (08:00→08:23)
[2016-09-17] MEDS: MULTIVITAMIN with MINERAL TABLET. PO SCH ×2 (08:23→13:09)
[2016-09-17] MEDS: ASPIRIN 81 MG TAB.CHEW PO SCH ×2 (08:23→13:10)
[2016-09-17] MEDS: LISINOPRIL 10 MG TABLET PO SCH ×2 (08:23→13:11)
[2016-09-17] MEDS: ESCITALOPRAM 10 MG TABLET. PO SCH ×2 (08:23→13:09)
[2016-09-17] MEDS: busPIRone 10 MG TABLET. PO SCH ×3 (08:23→19:48)
[2016-09-17] MEDS: ACETAMINOPHEN 325 MG TABLET PO SCH ×3 (08:23→19:48)
[2016-09-17] MEDS: CHOLECALCIFEROL (VITAMIN D3) 50,000 UNIT CAPSULE PO SCH ×2 (08:23→09:00)
[2016-09-17] MEDS: risperiDONE ORAL 1 MG/ML 30ml BOTTLE. SL SCH ×3 (08:24→16:28)
--- NOTE | 2016-09-17 09:38 | PDOC ---
Exam Bradley Demential Exam: Bradley Note: Please also refer to the separate dictated note~for this date of service dictated separately.~Patient seen individually. Discussed the patient with Nursing staff reviewed the chart.~Reviewed interim history and current functioning. Reviewed vital signs,~Labs/ Radiology~and current medications noted below. Continue current treatment with the changes noted in the dictated addendum note Assessment: Vital Signs: Vital Signs Date Time Temp Pulse Resp B/P Pulse Ox O2 Delivery O2 Flow Rate FiO2 09/17/16 08:23 74 131/66 09/17/16 05:50 20 95 09/16/16 15:18 98.2 Room Air I&O Intake and Output 09/17/16 07:00 Intake Total 840 ml Balance 840 ml Intake Oral 840 ml Labs: Laboratory Tests Test 09/16/16 11:42 09/16/16 16:53 09/16/16 19:18 09/17/16 07:50 Glucose (Fingerstick) 155mg/dL (70-99) H 139mg/dL (70-99) H 167mg/dL (70-99) H 146mg/dL (70-99) H Current Medications: Meds: Current Medications Ziprasidone (Geodon Im) 10 mg 1X ONCE IM Last administered on 08/31/16 20:55 ; Start 08/31/16 at 20:30; Stop 08/31/16 at 20:31; Status DC Acetaminophen (Tylenol) 650 mg PRN Q6HRS PRN PO PAIN / TEMP; Start 08/31/16 at 21:45 Multi-Ingredient Ointment (Analgesic [place]) 1 regino PRN QID PRN TP MUSCLE PAIN; Start 08/31/16 at 21:45 Al Hydroxide/Mg Hydroxide (Mylanta Plus Xs) 15 ml PRN AFTMEALHC PRN PO DYSPEPSIA; Start 08/31/16 at 21:45 Magnesium Hydroxide (Milk Of Magnesia) 2,400 mg PRN QHS PRN PO CONSTIPATION Last administered on 09/10/16 08:03; Start 08/31/16 at 21:45 Lorazepam (Ativan) 0.5 mg PRN Q6HRS PRN PO ANXIETY Last administered on 21:23; Start 08/31/16 at 22:00 Quetiapine Fumarate (SEROquel) 25 mg BID PO Last administered on 09/04/16 07: 47; Start 09/01/16 at 09:00; Stop 09/04/16 at 15:44; Status DC Pneumoccal 13-Valent Conj Vacc (Prevnar 13) 0.5 ml ONCE ONCE VAX IM ; Start at 09:00; Stop 09/01/16 at 09:01; Status UNV Influenza Virus Vaccine Quadrival (Fluarix Quad [id number] Syringe) 0.5 ml ONCE ONCE VAX IM Last administered on 09/01/16 11:36; Start 09/01/16 at 09:00; Stop 09/01/16 at 09:01; Status DC Info (FLU VACCINE per PROTOCOL) 1 ea PRN 1X PRN MC PER PROTOCOL; Start at 23:45; Status Cancel Pneumococcal Polyvalent Vaccine (Do NOT chart on this entry -- for MONITORING) 1 each PRN 1X PRN MC SEE COMMENTS; Start 08/31/16 at 23:45; Status Cancel Pneumococcal Polyvalent Vaccine (Pneumovax 23) 0.5 ml ONCE ONCE VAX IM Last administered on 09/01/16 11:49; Start 09/01/16 at 09:00; Stop 09/01/16 at 09:01 ; Status DC Acetaminophen (Tylenol) 650 mg Q12HR PO Last administered on 09/17/16 08:23; Start 09/01/16 at 09:00 Aspirin (Children'S Aspirin) 81 mg DAILY PO Last administered on 09/17/16 08: 23; Start 09/01/16 at 09:00 Atorvastatin Calcium (Lipitor) 20 mg QHS PO Last administered on 09/16/16 19: 30; Start 09/01/16 at 21:00 Lisinopril (Prinivil) 10 mg DAILY PO Last administered on 09/17/16 08:23; Start 09/01/16 at 09:00 Multivitamins (Thera-Vit) 1 tab DAILY PO Last administered on 09/14/16 09:14; Start 09/01/16 at 09:00; Stop 09/14/16 at 16:38; Status DC Olanzapine (Zyprexa Zydis) 2.5 mg PRN Q2HR PRN PO PSYCHOSIS Last administered on 09/15/16 20:53; Start 09/01/16 at 13:15 Vitamin D (Vitamin D3) 50,000 unit WEEKLY PO Last administered on 09/17/16 08: 23; Start 09/03/16 at 09:00; Stop 10/29/16 at 09:01 Escitalopram Oxalate (Lexapro) 5 mg DAILY PO Last administered on 09/07/16 08: 56; Start 09/04/16 at 09:00; Stop 09/07/16 at 13:09; Status DC Quetiapine Fumarate (SEROquel) 25 mg TID PO Last administered on 09/13/16 14:13 ; Start 09/04/16 at 21:00; Stop 09/13/16 at 17:59; Status DC Neomycin/ Polymyxin/ Bacitracin (Triple Antibiotic Ointment) 1 pkt BID TP Last administered on 09/15/16 21:15; Start 09/05/16 at 21:00; Stop 09/15/16 at 21:18 ; Status DC Metformin HCl (Glucophage Xr) 500 mg DAILYWBKFT PO Last administered on 08:23; Start 09/07/16 at 08:00 Buspirone HCl (Buspar) 5 mg BID PO Last administered on 09/07/16 08:56; Start 09/06/16 at 21:00; Stop 09/07/16 at 13:09; Status DC Buspirone HCl (Buspar) 10 mg BID PO Last administered on 09/17/16 08:23; Start 09/07/16 at 21:00 Escitalopram Oxalate (Lexapro) 10 mg DAILY PO Last administered on 09/17/16 08 :23; Start 09/08/16 at 09:00 Mirtazapine (Remeron) 7.5 mg QHS PO Last administered on 09/16/16 19:30; Start 09/10/16 at 21:00 Quetiapine Fumarate (SEROquel) 37.5 mg TID PO Last administered on 09/15/16 11 :32; Start 09/13/16 at 21:00; Stop 09/15/16 at 18:02; Status DC Multivitamins/ Calcium (Thera-M Plus) 1 tab DAILY PO Last administered on 3/12/ 17at 08:23; Start 09/15/16 at 09:00 Risperidone (Risperdal) 0.25 mg BID94 SL Last administered on 09/17/16t 08:24; Start 09/16/16 at 09:00 Active Scripts Active Reported Lorazepam 0.5 Mg Tablet 0.5 Mg PO PRN Q6HRS PRN Acetaminophen 325 Mg Tablet 650 Mg PO PRN Q4HRS PRN Quetiapine Fumarate 25 Mg Tablet 25 Mg PO BID Multi Vitamin Daily (Multivitamin) 1 Each Tablet 1 Each PO DAILY Lisinopril 10 Mg Tablet 10 Mg PO DAILY Atorvastatin Calcium 20 Mg Tablet 20 Mg PO QHS Aspirin 81 Mg Tab.chew 81 Mg PO DAILY Tylenol (Acetaminophen) 325 Mg Tablet 650 Mg PO Q12HR Diagnosis: Problems: (1) Agitation (2) Anxiety disorder (3) Impulse control disorder (4) Dementia, vascular, with depression (5) Dementia, vascular, with delusions (6) Dementia in Alzheimer's disease with depression (7) Dementia in Alzheimer's disease with delusions KRISSY MONTES MD Sep 17, 2016 09:37
--- NOTE | 2016-09-17 10:02 | PN ---
DATE: 09/15/2016 PSYCHIATRIC PROGRESS NOTE This is a late entry 09/15/2016, covers elements not covered in my initial note. Per nursing report on 09/15/2016, the patient had a "bad day." She was combative, agitated, refused out to get her out of bed for breakfast, lunch, striking out at nursing staff, difficult to redirect, paranoid. REVIEW OF SYSTEMS: No CV, , pulmonary, eye system symptoms on review. Reliability poor. MENTAL STATUS EXAM: Oriented to herself. Insight, judgment, recent and remote memory, attention, concentration, fund of knowledge poor, consistent with her diagnosis as mentioned in my initial note. PLAN: Change Seroquel 37.5 t.i.d. to Risperdal 0.25 mg liquid twice a day. Continue Zyprexa p.r.n., Ativan p.r.n., Lexapro 10 mg a day, Remeron 7.5 at bedtime, BuSpar 10 b.i.d. Adjust further as clinically indicated. MAN Sonia MONTES MD DR: STEVE/bishop JOB#: [id number] / [id number]
--- NOTE | 2016-09-17 10:04 | PN ---
DATE: 09/16/2016 PSYCHIATRIC PROGRESS NOTE This note covers elements not covered in my initial note. Per nursing report, the patient remained confused, less agitated, aggressive, less paranoid as compared to yesterday. REVIEW OF SYSTEMS: No CV, , pulmonary, eye system symptoms on review. MENTAL STATUS EXAM: Oriented to herself. Insight, judgment, recent and remote memory, attention, concentration, fund of knowledge poor, consistent with her diagnosis as mentioned in my initial note. PLAN: Continue Risperdal 0.25 b.i.d., Ativan p.r.n., Zyprexa p.r.n., BuSpar 10 b.i.d., Remeron 7.5 at bedtime, Lexapro 10 mg a day. Adjust as indicated clinically. MAN Sonia MONTES MD DR: STEVE/bishop JOB#: [id number] / [id number]
[2016-09-17] MEDS: OLANZAPINE ZYDIS 5 MG TAB.RAPDIS PO PRN ×2 (13:10→19:49)
[2016-09-17 16:25] VITALS: BP 151/87
[2016-09-17] MEDS: ATORVASTATIN CALCIUM 20 MG TABLET PO SCH (19:48)
[2016-09-17] MEDS: MIRTAZAPINE 7.5 MG TABLET. PO SCH (19:48)
[2016-09-18 06:47] VITALS: BP 153/80
[2016-09-18] MEDS: METFORMIN XR 500 MG TAB.ER.24H PO SCH (10:46)
[2016-09-18] MEDS: ESCITALOPRAM 10 MG TABLET. PO SCH (10:46)
[2016-09-18] MEDS: ACETAMINOPHEN 325 MG TABLET PO SCH ×2 (10:47→20:00)
[2016-09-18] MEDS: LISINOPRIL 10 MG TABLET PO SCH (10:47)
[2016-09-18] MEDS: MULTIVITAMIN with MINERAL TABLET. PO SCH (10:47)
[2016-09-18] MEDS: busPIRone 10 MG TABLET. PO SCH ×2 (10:47→19:59)
[2016-09-18] MEDS: ASPIRIN 81 MG TAB.CHEW PO SCH (10:48)
[2016-09-18] MEDS: risperiDONE ORAL 1 MG/ML 30ml BOTTLE. SL SCH ×2 (10:52→16:00)
[2016-09-18 16:39] VITALS: BP 153/83
[2016-09-18] MEDS: ATORVASTATIN CALCIUM 20 MG TABLET PO SCH (19:59)
[2016-09-18] MEDS: MIRTAZAPINE 7.5 MG TABLET. PO SCH (19:59)
--- NOTE | 2016-09-18 21:25 | PDOC ---
Exam Bradley Demential Exam: Bradley Note: Please also refer to the separate dictated note~for this date of service dictated separately.~Patient seen individually. Discussed the patient with Nursing staff reviewed the chart.~Reviewed interim history and current functioning. Reviewed vital signs,~Labs/ Radiology~and current medications noted below. Continue current treatment with the changes noted in the dictated addendum note Assessment: Vital Signs: Vital Signs Date Time Temp Pulse Resp B/P Pulse Ox O2 Delivery O2 Flow Rate FiO2 09/18/16 16:39 98.1 92 20 153/83 94 09/16/16 15:18 Room Air I&O Intake and Output 09/18/16 07:00 Intake Total 845 ml Balance 845 ml Intake Oral 845 ml Labs: Laboratory Tests Test 09/18/16 07:40 09/18/16 11:33 09/18/16 16:48 09/18/16 18:58 Glucose (Fingerstick) 121mg/dL (70-99) H 209mg/dL (70-99) H 109mg/dL (70-99) H 197mg/dL (70-99) H Current Medications: Meds: Current Medications Ziprasidone (Geodon Im) 10 mg 1X ONCE IM Last administered on 08/31/16 20:55 ; Start 08/31/16 at 20:30; Stop 08/31/16 at 20:31; Status DC Acetaminophen (Tylenol) 650 mg PRN Q6HRS PRN PO PAIN / TEMP; Start 08/31/16 at 21:45 Multi-Ingredient Ointment (Analgesic [place]) 1 regino PRN QID PRN TP MUSCLE PAIN; Start 08/31/16 at 21:45 Al Hydroxide/Mg Hydroxide (Mylanta Plus Xs) 15 ml PRN AFTMEALHC PRN PO DYSPEPSIA; Start 08/31/16 at 21:45 Magnesium Hydroxide (Milk Of Magnesia) 2,400 mg PRN QHS PRN PO CONSTIPATION Last administered on 09/10/16 08:03; Start 08/31/16 at 21:45 Lorazepam (Ativan) 0.5 mg PRN Q6HRS PRN PO ANXIETY Last administered on 21:23; Start 08/31/16 at 22:00 Quetiapine Fumarate (SEROquel) 25 mg BID PO Last administered on 09/04/16 07: 47; Start 09/01/16 at 09:00; Stop 09/04/16 at 15:44; Status DC Pneumoccal 13-Valent Conj Vacc (Prevnar 13) 0.5 ml ONCE ONCE VAX IM ; Start at 09:00; Stop 09/01/16 at 09:01; Status UNV Influenza Virus Vaccine Quadrival (Fluarix Quad 3370-1067 Syringe) 0.5 ml ONCE ONCE VAX IM Last administered on 09/01/16 11:36; Start 09/01/16 at 09:00; Stop 09/01/16 at 09:01; Status DC Info (FLU VACCINE per PROTOCOL) 1 ea PRN 1X PRN MC PER PROTOCOL; Start at 23:45; Status Cancel Pneumococcal Polyvalent Vaccine (Do NOT chart on this entry -- for MONITORING) 1 each PRN 1X PRN MC SEE COMMENTS; Start 08/31/16 at 23:45; Status Cancel Pneumococcal Polyvalent Vaccine (Pneumovax 23) 0.5 ml ONCE ONCE VAX IM Last administered on 09/01/16 11:49; Start 09/01/16 at 09:00; Stop 09/01/16 at 09:01 ; Status DC Acetaminophen (Tylenol) 650 mg Q12HR PO Last administered on 09/18/16 20:00; Start 09/01/16 at 09:00 Aspirin (Children'S Aspirin) 81 mg DAILY PO Last administered on 09/18/16 10: 48; Start 09/01/16 at 09:00 Atorvastatin Calcium (Lipitor) 20 mg QHS PO Last administered on 09/18/16 19: 59; Start 09/01/16 at 21:00 Lisinopril (Prinivil) 10 mg DAILY PO Last administered on 09/18/16 10:47; Start 09/01/16 at 09:00 Multivitamins (Thera-Vit) 1 tab DAILY PO Last administered on 09/14/16 09:14; Start 09/01/16 at 09:00; Stop 09/14/16 at 16:38; Status DC Olanzapine (Zyprexa Zydis) 2.5 mg PRN Q2HR PRN PO PSYCHOSIS Last administered on 09/17/16 19:49; Start 09/01/16 at 13:15 Vitamin D (Vitamin D3) 50,000 unit WEEKLY PO Last administered on 09/10/16 08: 08; Start 09/03/16 at 09:00; Stop 10/29/16 at 09:01 Escitalopram Oxalate (Lexapro) 5 mg DAILY PO Last administered on 09/07/16 08: 56; Start 09/04/16 at 09:00; Stop 09/07/16 at 13:09; Status DC Quetiapine Fumarate (SEROquel) 25 mg TID PO Last administered on 09/13/16 14:13 ; Start 09/04/16 at 21:00; Stop 09/13/16 at 17:59; Status DC Neomycin/ Polymyxin/ Bacitracin (Triple Antibiotic Ointment) 1 pkt BID TP Last administered on 09/15/16 21:15; Start 09/05/16 at 21:00; Stop 09/15/16 at 21:18 ; Status DC Metformin HCl (Glucophage Xr) 500 mg DAILYWBKFT PO Last administered on 10:46; Start 09/07/16 at 08:00 Buspirone HCl (Buspar) 5 mg BID PO Last administered on 09/07/16 08:56; Start 09/06/16 at 21:00; Stop 09/07/16 at 13:09; Status DC Buspirone HCl (Buspar) 10 mg BID PO Last administered on 09/18/16 19:59; Start 09/07/16 at 21:00 Escitalopram Oxalate (Lexapro) 10 mg DAILY PO Last administered on 09/18/16 10 :46; Start 09/08/16 at 09:00 Mirtazapine (Remeron) 7.5 mg QHS PO Last administered on 09/18/16 19:59; Start 09/10/16 at 21:00 Quetiapine Fumarate (SEROquel) 37.5 mg TID PO Last administered on 09/15/16 11 :32; Start 09/13/16 at 21:00; Stop 09/15/16 at 18:02; Status DC Multivitamins/ Calcium (Thera-M Plus) 1 tab DAILY PO Last administered on 10:47; Start 09/15/16 at 09:00 Risperidone (Risperdal) 0.25 mg BID94 SL Last administered on 09/17/16 16:28; Start 09/16/16 at 09:00; Stop 09/17/16 at 19:17; Status DC Risperidone (Risperdal) 0.25 mg DAILY16 SL Last administered on 09/18/16 16:00 ; Start 09/18/16 at 16:00 Risperidone (Risperdal) 0.5 mg DAILY SL Last administered on 09/18/16 10:52; Start 09/18/16 at 09:00 Active Scripts Active Reported Lorazepam 0.5 Mg Tablet 0.5 Mg PO PRN Q6HRS PRN Acetaminophen 325 Mg Tablet 650 Mg PO PRN Q4HRS PRN Quetiapine Fumarate 25 Mg Tablet 25 Mg PO BID Multi Vitamin Daily (Multivitamin) 1 Each Tablet 1 Each PO DAILY Lisinopril 10 Mg Tablet 10 Mg PO DAILY Atorvastatin Calcium 20 Mg Tablet 20 Mg PO QHS Aspirin 81 Mg Tab.chew 81 Mg PO DAILY Tylenol (Acetaminophen) 325 Mg Tablet 650 Mg PO Q12HR Diagnosis: Problems: (1) Agitation (2) Anxiety disorder (3) Impulse control disorder (4) Dementia, vascular, with depression (5) Dementia, vascular, with delusions (6) Dementia in Alzheimer's disease with depression (7) Dementia in Alzheimer's disease with delusions KRISSY MONTES MD Sep 18, 2016 21:25
--- NOTE | 2016-09-18 22:30 | PN ---
DATE: 09/17/2016 This is a late entry for 09/17/2016 covers elements not covered in my initial note. SUBJECTIVE: Per nursing report, the patient refused medications, refused to eat in the morning of 09/17/2016 then took the meds later, combative with staff, was biting at staff, kicking. Her daughters came. She received Zyprexa Zydis and then did better. REVIEW OF SYSTEMS: No CV, , pulmonary, eye, ENT system symptoms on review. MENTAL STATUS EXAM: Oriented to herself. Insight, judgment, recent and remote memory, attention, concentration, fund of knowledge poor, consistent with her diagnoses. IMPRESSION: Major neurocognitive disorder, Alzheimer, vascular with delusion, depression, behavioral disturbance. Rest unchanged. PLAN: Continue Risperdal, which is currently 0.25 b.i.d. We will increase to 0.5 in the morning, 0.25 evening at 04:00 p.m. Continue Ativan p.r.n., Zyprexa p.r.n., Lexapro 10 mg a day, BuSpar 10 b.i.d., Remeron 7.5 mg at bedtime. Adjust further as clinically indicated. MAN Sonia MONTES MD DR: STEVE/bishop JOB#: [id number] / [id number]
[2016-09-19] MEDS: OLANZAPINE ZYDIS 5 MG TAB.RAPDIS PO PRN (03:32)
[2016-09-19 05:53] VITALS: BP 127/77
[2016-09-19] MEDS: METFORMIN XR 500 MG TAB.ER.24H PO SCH (07:49)
[2016-09-19] MEDS: ASPIRIN 81 MG TAB.CHEW PO SCH (07:49)
[2016-09-19] MEDS: ESCITALOPRAM 10 MG TABLET. PO SCH (07:50)
[2016-09-19] MEDS: LISINOPRIL 10 MG TABLET PO SCH (07:50)
[2016-09-19] MEDS: ACETAMINOPHEN 325 MG TABLET PO SCH ×2 (07:50→19:17)
[2016-09-19] MEDS: busPIRone 10 MG TABLET. PO SCH ×2 (07:50→19:18)
[2016-09-19] MEDS: MULTIVITAMIN with MINERAL TABLET. PO SCH (07:50)
[2016-09-19] MEDS: risperiDONE ORAL 1 MG/ML 30ml BOTTLE. SL SCH ×2 (07:53→16:13)
[2016-09-19 15:51] VITALS: BP 116/71
[2016-09-19] MEDS: ATORVASTATIN CALCIUM 20 MG TABLET PO SCH (19:17)
[2016-09-19] MEDS: MIRTAZAPINE 15 MG TABLET PO SCH (20:03)
--- NOTE | 2016-09-19 20:37 | PN ---
DATE: 09/18/2016 PSYCHIATRIC PROGRESS NOTE This is a late entry for 09/18/2016 covers elements not covered in my initial note. SUBJECTIVE: Per nursing report, the patient remains confused has been wandering off into other patient's room, lying in bed of other patients, does redirect, not aggressive. REVIEW OF SYSTEMS: No CV, , pulmonary, eye, ENT system symptoms on review. MENTAL STATUS EXAM: Oriented to herself. Insight, judgment, recent and remote memory, attention, concentration, fund of knowledge poor, consistent with her diagnosis as mentioned in my initial note. PLAN: Continue current psychotropics mentioned in my initial note may need to increase Risperdal in due course or BuSpar if anxiety, agitation persists. MAN Sonia MONTES MD DR: STEVE/bishop JOB#: [id number] / [id number]
[2016-09-19] MEDS ORDERED: traZODone 50 MG TABLET. PO PRN (21:00)
--- NOTE | 2016-09-19 21:14 | PDOC ---
Exam Bradley Demential Exam: Bradley Note: Please also refer to the separate dictated note~for this date of service dictated separately.~Patient seen individually. Discussed the patient with Nursing staff reviewed the chart.~Reviewed interim history and current functioning. Reviewed vital signs,~Labs/ Radiology~and current medications noted below. Continue current treatment with the changes noted in the dictated addendum note Assessment: Vital Signs: Vital Signs Date Time Temp Pulse Resp B/P Pulse Ox O2 Delivery O2 Flow Rate FiO2 09/19/16 15:51 97.0 88 16 116/71 94 09/16/16 15:18 Room Air I&O Intake and Output 09/19/16 07:00 Intake Total 960 ml Balance 960 ml Intake Oral 960 ml Labs: Laboratory Tests Test 09/19/16 07:07 09/19/16 11:04 09/19/16 16:27 09/19/16 19:17 Glucose (Fingerstick) 140mg/dL (70-99) H 112mg/dL (70-99) H 138mg/dL (70-99) H 84mg/dL (70-99) Current Medications: Meds: Current Medications Ziprasidone (Geodon Im) 10 mg 1X ONCE IM Last administered on 08/31/16 20:55 ; Start 08/31/16 at 20:30; Stop 08/31/16 at 20:31; Status DC Acetaminophen (Tylenol) 650 mg PRN Q6HRS PRN PO PAIN / TEMP; Start 08/31/16 at 21:45 Multi-Ingredient Ointment (Analgesic [place]) 1 regino PRN QID PRN TP MUSCLE PAIN; Start 08/31/16 at 21:45 Al Hydroxide/Mg Hydroxide (Mylanta Plus Xs) 15 ml PRN AFTMEALHC PRN PO DYSPEPSIA; Start 08/31/16 at 21:45 Magnesium Hydroxide (Milk Of Magnesia) 2,400 mg PRN QHS PRN PO CONSTIPATION Last administered on 09/10/16 08:03; Start 08/31/16 at 21:45 Lorazepam (Ativan) 0.5 mg PRN Q6HRS PRN PO ANXIETY Last administered on 21:23; Start 08/31/16 at 22:00 Quetiapine Fumarate (SEROquel) 25 mg BID PO Last administered on 09/04/16 07: 47; Start 09/01/16 at 09:00; Stop 09/04/16 at 15:44; Status DC Pneumoccal 13-Valent Conj Vacc (Prevnar 13) 0.5 ml ONCE ONCE VAX IM ; Start at 09:00; Stop 09/01/16 at 09:01; Status UNV Influenza Virus Vaccine Quadrival (Fluarix Quad 7441-1800 Syringe) 0.5 ml ONCE ONCE VAX IM Last administered on 09/01/16 11:36; Start 09/01/16 at 09:00; Stop 09/01/16 at 09:01; Status DC Info (FLU VACCINE per PROTOCOL) 1 ea PRN 1X PRN MC PER PROTOCOL; Start at 23:45; Status Cancel Pneumococcal Polyvalent Vaccine (Do NOT chart on this entry -- for MONITORING) 1 each PRN 1X PRN MC SEE COMMENTS; Start 08/31/16 at 23:45; Status Cancel Pneumococcal Polyvalent Vaccine (Pneumovax 23) 0.5 ml ONCE ONCE VAX IM Last administered on 09/01/16 11:49; Start 09/01/16 at 09:00; Stop 09/01/16 at 09:01 ; Status DC Acetaminophen (Tylenol) 650 mg Q12HR PO Last administered on 09/19/16 19:17; Start 09/01/16 at 09:00 Aspirin (Children'S Aspirin) 81 mg DAILY PO Last administered on 09/19/16 07: 49; Start 09/01/16 at 09:00 Atorvastatin Calcium (Lipitor) 20 mg QHS PO Last administered on 09/19/16 19: 17; Start 09/01/16 at 21:00 Lisinopril (Prinivil) 10 mg DAILY PO Last administered on 09/19/16 07:50; Start 09/01/16 at 09:00 Multivitamins (Thera-Vit) 1 tab DAILY PO Last administered on 09/14/16 09:14; Start 09/01/16 at 09:00; Stop 09/14/16 at 16:38; Status DC Olanzapine (Zyprexa Zydis) 2.5 mg PRN Q2HR PRN PO PSYCHOSIS Last administered on 09/19/16 03:32; Start 09/01/16 at 13:15 Vitamin D (Vitamin D3) 50,000 unit WEEKLY PO Last administered on 09/10/16 08: 08; Start 09/03/16 at 09:00; Stop 10/29/16 at 09:01 Escitalopram Oxalate (Lexapro) 5 mg DAILY PO Last administered on 09/07/16 08: 56; Start 09/04/16 at 09:00; Stop 09/07/16 at 13:09; Status DC Quetiapine Fumarate (SEROquel) 25 mg TID PO Last administered on 09/13/16 14:13 ; Start 09/04/16 at 21:00; Stop 09/13/16 at 17:59; Status DC Neomycin/ Polymyxin/ Bacitracin (Triple Antibiotic Ointment) 1 pkt BID TP Last administered on 09/15/16 21:15; Start 09/05/16 at 21:00; Stop 09/15/16 at 21:18 ; Status DC Metformin HCl (Glucophage Xr) 500 mg DAILYWBKFT PO Last administered on 07:49; Start 09/07/16 at 08:00 Buspirone HCl (Buspar) 5 mg BID PO Last administered on 09/07/16 08:56; Start 09/06/16 at 21:00; Stop 09/07/16 at 13:09; Status DC Buspirone HCl (Buspar) 10 mg BID PO Last administered on 09/19/16 19:18; Start 09/07/16 at 21:00 Escitalopram Oxalate (Lexapro) 10 mg DAILY PO Last administered on 09/19/16 07 :50; Start 09/08/16 at 09:00 Mirtazapine (Remeron) 7.5 mg QHS PO Last administered on 09/18/16 19:59; Start 09/10/16 at 21:00; Stop 09/19/16 at 18:28; Status DC Quetiapine Fumarate (SEROquel) 37.5 mg TID PO Last administered on 09/15/16 11 :32; Start 09/13/16 at 21:00; Stop 09/15/16 at 18:02; Status DC Multivitamins/ Calcium (Thera-M Plus) 1 tab DAILY PO Last administered on 07:50; Start 09/15/16 at 09:00 Risperidone (Risperdal) 0.25 mg [id number] SL Last administered on 09/17/16 16:28; Start 09/16/16 at 09:00; Stop 09/17/16 at 19:17; Status DC Risperidone (Risperdal) 0.25 mg DAILY16 SL Last administered on 09/19/16 16:13 ; Start 09/18/16 at 16:00 Risperidone (Risperdal) 0.5 mg DAILY SL Last administered on 09/19/16 07:53; Start 09/18/16 at 09:00 Mirtazapine (Remeron) 15 mg QHS PO Last administered on 09/19/16 20:03; Start 09/19/16 at 21:00 Trazodone HCl (Desyrel) 50 mg PRN QHS PRN PO insomnia; Start 09/19/16 at 21:00 Active Scripts Active Reported Lorazepam 0.5 Mg Tablet 0.5 Mg PO PRN Q6HRS PRN Acetaminophen 325 Mg Tablet 650 Mg PO PRN Q4HRS PRN Quetiapine Fumarate 25 Mg Tablet 25 Mg PO BID Multi Vitamin Daily (Multivitamin) 1 Each Tablet 1 Each PO DAILY Lisinopril 10 Mg Tablet 10 Mg PO DAILY Atorvastatin Calcium 20 Mg Tablet 20 Mg PO QHS Aspirin 81 Mg Tab.chew 81 Mg PO DAILY Tylenol (Acetaminophen) 325 Mg Tablet 650 Mg PO Q12HR Diagnosis: Problems: (1) Agitation (2) Anxiety disorder (3) Impulse control disorder (4) Dementia, vascular, with depression (5) Dementia, vascular, with delusions (6) Dementia in Alzheimer's disease with depression (7) Dementia in Alzheimer's disease with delusions KRISSY MONTES MD Sep 19, 2016 21:13
[2016-09-20 05:57] VITALS: BP 119/57
[2016-09-20] MEDS: ACETAMINOPHEN 325 MG TABLET PO SCH ×2 (08:46→19:12)
[2016-09-20] MEDS: ESCITALOPRAM 10 MG TABLET. PO SCH (08:46)
[2016-09-20] MEDS: ASPIRIN 81 MG TAB.CHEW PO SCH (08:46)
[2016-09-20] MEDS: LISINOPRIL 10 MG TABLET PO SCH (08:46)
[2016-09-20] MEDS: MULTIVITAMIN with MINERAL TABLET. PO SCH (08:46)
[2016-09-20] MEDS: METFORMIN XR 500 MG TAB.ER.24H PO SCH (08:46)
[2016-09-20] MEDS: busPIRone 10 MG TABLET. PO SCH ×2 (08:46→19:12)
[2016-09-20] MEDS: risperiDONE ORAL 1 MG/ML 30ml BOTTLE. SL SCH ×2 (08:47→16:44)
[2016-09-20 15:46] VITALS: BP 123/72
[2016-09-20] MEDS: MIRTAZAPINE 15 MG TABLET PO SCH (19:12)
[2016-09-20] MEDS: ATORVASTATIN CALCIUM 20 MG TABLET PO SCH (19:12)
--- NOTE | 2016-09-20 22:05 | PDOC ---
Exam Bradley Demential Exam: Bradley Note: Please also refer to the separate dictated note~for this date of service dictated separately.~Patient seen individually. Discussed the patient with Nursing staff reviewed the chart.~Reviewed interim history and current functioning. Reviewed vital signs,~Labs/ Radiology~and current medications noted below. Continue current treatment with the changes noted in the dictated addendum note Assessment: Vital Signs: Vital Signs Date Time Temp Pulse Resp B/P Pulse Ox O2 Delivery O2 Flow Rate FiO2 09/20/16 15:46 98.1 73 16 123/72 95 Room Air I&O Intake and Output 09/20/16 07:00 Intake Total 360 ml Balance 360 ml Intake Oral 360 ml Labs: Laboratory Tests Test 09/20/16 07:05 09/20/16 11:26 09/20/16 16:46 09/20/16 19:02 Glucose (Fingerstick) 131mg/dL (70-99) H 115mg/dL (70-99) H 97mg/dL (70-99) 141mg/dL (70-99) H Current Medications: Meds: Current Medications Ziprasidone (Geodon Im) 10 mg 1X ONCE IM Last administered on 08/31/16 20:55 ; Start 08/31/16 at 20:30; Stop 08/31/16 at 20:31; Status DC Acetaminophen (Tylenol) 650 mg PRN Q6HRS PRN PO PAIN / TEMP; Start 08/31/16 at 21:45 Multi-Ingredient Ointment (Analgesic [place]) 1 regino PRN QID PRN TP MUSCLE PAIN; Start 08/31/16 at 21:45 Al Hydroxide/Mg Hydroxide (Mylanta Plus Xs) 15 ml PRN AFTMEALHC PRN PO DYSPEPSIA; Start 08/31/16 at 21:45 Magnesium Hydroxide (Milk Of Magnesia) 2,400 mg PRN QHS PRN PO CONSTIPATION Last administered on 09/10/16 08:03; Start 08/31/16 at 21:45 Lorazepam (Ativan) 0.5 mg PRN Q6HRS PRN PO ANXIETY Last administered on 21:23; Start 08/31/16 at 22:00 Quetiapine Fumarate (SEROquel) 25 mg BID PO Last administered on 09/04/16 07: 47; Start 09/01/16 at 09:00; Stop 09/04/16 at 15:44; Status DC Pneumoccal 13-Valent Conj Vacc (Prevnar 13) 0.5 ml ONCE ONCE VAX IM ; Start at 09:00; Stop 09/01/16 at 09:01; Status UNV Influenza Virus Vaccine Quadrival (Fluarix Quad 6163-1096 Syringe) 0.5 ml ONCE ONCE VAX IM Last administered on 09/01/16 11:36; Start 09/01/16 at 09:00; Stop 09/01/16 at 09:01; Status DC Info (FLU VACCINE per PROTOCOL) 1 ea PRN 1X PRN MC PER PROTOCOL; Start at 23:45; Status Cancel Pneumococcal Polyvalent Vaccine (Do NOT chart on this entry -- for MONITORING) 1 each PRN 1X PRN MC SEE COMMENTS; Start 08/31/16 at 23:45; Status Cancel Pneumococcal Polyvalent Vaccine (Pneumovax 23) 0.5 ml ONCE ONCE VAX IM Last administered on 09/01/16 11:49; Start 09/01/16 at 09:00; Stop 09/01/16 at 09:01 ; Status DC Acetaminophen (Tylenol) 650 mg Q12HR PO Last administered on 09/20/16 19:12; Start 09/01/16 at 09:00 Aspirin (Children'S Aspirin) 81 mg DAILY PO Last administered on 09/20/16 08: 46; Start 09/01/16 at 09:00 Atorvastatin Calcium (Lipitor) 20 mg QHS PO Last administered on 09/20/16 19: 12; Start 09/01/16 at 21:00 Lisinopril (Prinivil) 10 mg DAILY PO Last administered on 09/20/16 08:46; Start 09/01/16 at 09:00 Multivitamins (Thera-Vit) 1 tab DAILY PO Last administered on 09/14/16 09:14; Start 09/01/16 at 09:00; Stop 09/14/16 at 16:38; Status DC Olanzapine (Zyprexa Zydis) 2.5 mg PRN Q2HR PRN PO PSYCHOSIS Last administered on 09/19/16 03:32; Start 09/01/16 at 13:15 Vitamin D (Vitamin D3) 50,000 unit WEEKLY PO Last administered on 09/10/16 08: 08; Start 09/03/16 at 09:00; Stop 10/29/16 at 09:01 Escitalopram Oxalate (Lexapro) 5 mg DAILY PO Last administered on 09/07/16 08: 56; Start 09/04/16 at 09:00; Stop 09/07/16 at 13:09; Status DC Quetiapine Fumarate (SEROquel) 25 mg TID PO Last administered on 09/13/16 14:13 ; Start 09/04/16 at 21:00; Stop 09/13/16 at 17:59; Status DC Neomycin/ Polymyxin/ Bacitracin (Triple Antibiotic Ointment) 1 pkt BID TP Last administered on 09/15/16 21:15; Start 09/05/16 at 21:00; Stop 09/15/16 at 21:18 ; Status DC Metformin HCl (Glucophage Xr) 500 mg DAILYWBKFT PO Last administered on 08:46; Start 09/07/16 at 08:00 Buspirone HCl (Buspar) 5 mg BID PO Last administered on 09/07/16 08:56; Start 09/06/16 at 21:00; Stop 09/07/16 at 13:09; Status DC Buspirone HCl (Buspar) 10 mg BID PO Last administered on 09/20/16 19:12; Start 09/07/16 at 21:00 Escitalopram Oxalate (Lexapro) 10 mg DAILY PO Last administered on 09/20/16 08 :46; Start 09/08/16 at 09:00 Mirtazapine (Remeron) 7.5 mg QHS PO Last administered on 09/18/16 19:59; Start 09/10/16 at 21:00; Stop 09/19/16 at 18:28; Status DC Quetiapine Fumarate (SEROquel) 37.5 mg TID PO Last administered on 09/15/16 11 :32; Start 09/13/16 at 21:00; Stop 09/15/16 at 18:02; Status DC Multivitamins/ Calcium (Thera-M Plus) 1 tab DAILY PO Last administered on 08:46; Start 09/15/16 at 09:00 Risperidone (Risperdal) 0.25 mg [id number] SL Last administered on 09/17/16 16:28; Start 09/16/16 at 09:00; Stop 09/17/16 at 19:17; Status DC Risperidone (Risperdal) 0.25 mg DAILY16 SL Last administered on 09/20/16 16:44 ; Start 09/18/16 at 16:00 Risperidone (Risperdal) 0.5 mg DAILY SL Last administered on 09/20/16 08:47; Start 09/18/16 at 09:00 Mirtazapine (Remeron) 15 mg QHS PO Last administered on 09/20/16 19:12; Start 09/19/16 at 21:00 Trazodone HCl (Desyrel) 50 mg PRN QHS PRN PO insomnia; Start 09/19/16 at 21:00 Active Scripts Active Reported Lorazepam 0.5 Mg Tablet 0.5 Mg PO PRN Q6HRS PRN Acetaminophen 325 Mg Tablet 650 Mg PO PRN Q4HRS PRN Quetiapine Fumarate 25 Mg Tablet 25 Mg PO BID Multi Vitamin Daily (Multivitamin) 1 Each Tablet 1 Each PO DAILY Lisinopril 10 Mg Tablet 10 Mg PO DAILY Atorvastatin Calcium 20 Mg Tablet 20 Mg PO QHS Aspirin 81 Mg Tab.chew 81 Mg PO DAILY Tylenol (Acetaminophen) 325 Mg Tablet 650 Mg PO Q12HR Diagnosis: Problems: (1) Dementia in Alzheimer's disease with delusions (2) Dementia in Alzheimer's disease with depression (3) Dementia, vascular, with delusions (4) Dementia, vascular, with depression (5) Impulse control disorder (6) Anxiety disorder KRISSY MONTES MD Sep 20, 2016 22:05
--- NOTE | 2016-09-20 23:21 | PN ---
DATE: 09/19/2016 This late entry for 09/19/2016 covers elements not covered in my initial note. SUBJECTIVE: Per nursing report, the patient is sleeping poorly at night, remains confused, anxious, restless, still intermittently paranoid. No CV, , pulmonary, eye, ENT system symptoms on review. MENTAL STATUS EXAM: Oriented to herself. Insight, judgment, recent and remote memory, attention, concentration, fund of knowledge poor, consistent with her diagnosis mentioned in my initial note. PLAN: Continue Risperdal total of 0.75 mg a day, Ativan p.r.n., Lexapro 10 mg a day, BuSpar 10 mg b.i.d., increase Remeron from 7.5 mg at bedtime to 15 mg at bedtime, start trazodone 50 mg at bedtime p.r.n., may repeat x 1 for insomnia. Adjust further as clinically indicated. KRISSY MONTES MD DR: STEVE/bishop JOB#: [id number] / [id number]
[2016-09-21 05:42] VITALS: BP 129/98
[2016-09-21 06:42] LABS: BASO % 0 % (0-3); EOS # 0.3 x10^3/uL (0.0-0.7); EOS % 3 % (0-3); HEMATOCRIT 41.3 % (36.0-47.0); HEMOGLOBIN 13.6 g/dL (12.0-15.5); LYMPH # 2.3 x10^3/uL (1.0-4.8); LYMPH % 20 % (24-48); MEAN CORPUSCULAR HEMOGLOBIN 31 pg (25-35); MEAN CORPUSCULAR HGB CONC 33 g/dL (31-37); MEAN CORPUSCULAR VOLUME 94 fL (79-100); MONO # 1.5 x10^3/uL (0.0-1.1); MONO % 13 % (0-9); NEUT # 7.2 x10^3uL (1.8-7.7); NEUT % 64 % (31-73); PLATELET COUNT 214 x10^3/uL (140-400); RED BLOOD COUNT 4.41 x10^6/uL (3.50-5.40); RED CELL DISTRIBUTION WIDTH 13.3 % (11.5-14.5); WHITE BLOOD COUNT 11.3 x10^3/uL (4.0-11.0)
[2016-09-21 06:55] LABS: ALBUMIN 3.2 g/dL (3.4-5.0); ALBUMIN/GLOBULIN RATIO 0.8 (1.0-1.7); CALCIUM 8.8 mg/dL (8.5-10.1); CREATININE 0.8 mg/dL (0.6-1.0); GFR 68.8; MAGNESIUM 1.8 mg/dL (1.8-2.4); POTASSIUM 3.8 mmol/L (3.5-5.1); TOTAL BILIRUBIN 1.1 mg/dL (0.2-1.0)
[2016-09-21] MEDS: METFORMIN XR 500 MG TAB.ER.24H PO SCH (08:16)
[2016-09-21] MEDS: busPIRone 10 MG TABLET. PO SCH ×2 (08:17→19:35)
[2016-09-21] MEDS: ASPIRIN 81 MG TAB.CHEW PO SCH (08:17)
[2016-09-21] MEDS: MULTIVITAMIN with MINERAL TABLET. PO SCH (08:17)
[2016-09-21] MEDS: LISINOPRIL 10 MG TABLET PO SCH (08:17)
[2016-09-21] MEDS: ESCITALOPRAM 10 MG TABLET. PO SCH (08:17)
[2016-09-21] MEDS: ACETAMINOPHEN 325 MG TABLET PO SCH ×2 (08:18→19:35)
[2016-09-21] MEDS: risperiDONE ORAL 1 MG/ML 30ml BOTTLE. SL SCH ×3 (09:39→17:03)
[2016-09-21 15:39] VITALS: BP 131/73
[2016-09-21] MEDS: ATORVASTATIN CALCIUM 20 MG TABLET PO SCH (19:35)
[2016-09-21] MEDS: MIRTAZAPINE 15 MG TABLET PO SCH (19:35)
--- NOTE | 2016-09-21 21:13 | PDOC ---
Exam Bradley Demential Exam: Bradley Note: Please also refer to the separate dictated note~for this date of service dictated separately.~Patient seen individually. Discussed the patient with Nursing staff reviewed the chart.~Reviewed interim history and current functioning. Reviewed vital signs,~Labs/ Radiology~and current medications noted below. Continue current treatment with the changes noted in the dictated addendum note Assessment: Vital Signs: Vital Signs Date Time Temp Pulse Resp B/P Pulse Ox O2 Delivery O2 Flow Rate FiO2 09/21/16 15:39 98.4 79 18 131/73 94 09/20/16 15:46 Room Air I&O Intake and Output 09/21/16 07:00 Intake Total 1200 ml Balance 1200 ml Intake Oral 1200 ml Labs: Laboratory Tests Test 09/21/16 06:30 09/21/16 07:06 09/21/16 11:48 09/21/16 16:13 White Blood Count 11.3x10^3/uL (4.0-11.0) H Red Blood Count 4.41x10^6/uL (3.50-5.40) Hemoglobin 13.6g/dL (12.0-15.5) Hematocrit 41.3% (36.0-47.0) Mean Corpuscular Volume 94fL (79-100) Mean Corpuscular Hemoglobin 31pg (25-35) Mean Corpuscular Hemoglobin Concent 33g/dL (31-37) Red Cell Distribution Width 13.3% (11.5-14.5) Platelet Count 214x10^3/uL (140-400) Neutrophils (%) (Auto) 64% (31-73) Lymphocytes (%) (Auto) 20% (24-48) L Monocytes (%) (Auto) 13% (0-9) H Eosinophils (%) (Auto) 3% (0-3) Basophils (%) (Auto) 0% (0-3) Neutrophils # (Auto) 7.2x10^3uL (1.8-7.7) Lymphocytes # (Auto) 2.3x10^3/uL (1.0-4.8) Monocytes # (Auto) 1.5x10^3/uL (0.0-1.1) H Eosinophils # (Auto) 0.3x10^3/uL (0.0-0.7) Basophils # (Auto) 0.0x10^3/uL (0.0-0.2) Sodium Level 140mmol/L (136-145) Potassium Level 3.8mmol/L (3.5-5.1) Chloride Level 105mmol/L (98-107) Carbon Dioxide Level 27mmol/L (21-32) Anion Gap 8 (6-14) Blood Urea Nitrogen 14mg/dL (7-20) Creatinine 0.8mg/dL (0.6-1.0) Estimated GFR (Cockcroft-Gault) 68.8 BUN/Creatinine Ratio 18 (6-20) Glucose Level 135mg/dL (70-99) H Calcium Level 8.8mg/dL (8.5-10.1) Magnesium Level 1.8mg/dL (1.8-2.4) Total Bilirubin 1.1mg/dL (0.2-1.0) H Aspartate Amino Transferase (AST) 20U/L (15-37) Alanine Aminotransferase (ALT) 28U/L (14-59) Alkaline Phosphatase 100U/L (46-116) Total Protein 7.0g/dL (6.4-8.2) Albumin 3.2g/dL (3.4-5.0) L Albumin/Globulin Ratio 0.8 (1.0-1.7) L Glucose (Fingerstick) 136mg/dL (70-99) H 216mg/dL (70-99) H 108mg/dL (70-99) H Test 09/21/16 19:21 Glucose (Fingerstick) 128mg/dL (70-99) H Current Medications: Meds: Current Medications Ziprasidone (Geodon Im) 10 mg 1X ONCE IM Last administered on 08/31/16t 20:55 ; Start 08/31/16 at 20:30; Stop 08/31/16 at 20:31; Status DC Acetaminophen (Tylenol) 650 mg PRN Q6HRS PRN PO PAIN / TEMP; Start 08/31/16 at 21:45 Multi-Ingredient Ointment (Analgesic [place]) 1 regino PRN QID PRN TP MUSCLE PAIN; Start 08/31/16 at 21:45 Al Hydroxide/Mg Hydroxide (Mylanta Plus Xs) 15 ml PRN AFTMEALHC PRN PO DYSPEPSIA; Start 08/31/16 at 21:45 Magnesium Hydroxide (Milk Of Magnesia) 2,400 mg PRN QHS PRN PO CONSTIPATION Last administered on 09/10/16 08:03; Start 08/31/16 at 21:45 Lorazepam (Ativan) 0.5 mg PRN Q6HRS PRN PO ANXIETY Last administered on 21:23; Start 08/31/16 at 22:00 Quetiapine Fumarate (SEROquel) 25 mg BID PO Last administered on 09/04/16 07: 47; Start 09/01/16 at 09:00; Stop 09/04/16 at 15:44; Status DC Pneumoccal 13-Valent Conj Vacc (Prevnar 13) 0.5 ml ONCE ONCE VAX IM ; Start at 09:00; Stop 09/01/16 at 09:01; Status UNV Influenza Virus Vaccine Quadrival (Fluarix Quad [id number] Syringe) 0.5 ml ONCE ONCE VAX IM Last administered on 09/01/16 11:36; Start 09/01/16 at 09:00; Stop 09/01/16 at 09:01; Status DC Info (FLU VACCINE per PROTOCOL) 1 ea PRN 1X PRN MC PER PROTOCOL; Start at 23:45; Status Cancel Pneumococcal Polyvalent Vaccine (Do NOT chart on this entry -- for MONITORING) 1 each PRN 1X PRN MC SEE COMMENTS; Start 08/31/16 at 23:45; Status Cancel Pneumococcal Polyvalent Vaccine (Pneumovax 23) 0.5 ml ONCE ONCE VAX IM Last administered on 09/01/16 11:49; Start 09/01/16 at 09:00; Stop 09/01/16 at 09:01 ; Status DC Acetaminophen (Tylenol) 650 mg Q12HR PO Last administered on 09/21/16 19:35; Start 09/01/16 at 09:00 Aspirin (Children'S Aspirin) 81 mg DAILY PO Last administered on 09/21/16 08: 17; Start 09/01/16 at 09:00 Atorvastatin Calcium (Lipitor) 20 mg QHS PO Last administered on 09/21/16 19: 35; Start 09/01/16 at 21:00 Lisinopril (Prinivil) 10 mg DAILY PO Last administered on 09/21/16 08:17; Start 09/01/16 at 09:00 Multivitamins (Thera-Vit) 1 tab DAILY PO Last administered on 09/14/16 09:14; Start 09/01/16 at 09:00; Stop 09/14/16 at 16:38; Status DC Olanzapine (Zyprexa Zydis) 2.5 mg PRN Q2HR PRN PO PSYCHOSIS Last administered on 09/19/16 03:32; Start 09/01/16 at 13:15 Vitamin D (Vitamin D3) 50,000 unit WEEKLY PO Last administered on 09/10/16 08: 08; Start 09/03/16 at 09:00; Stop 10/29/16 at 09:01 Escitalopram Oxalate (Lexapro) 5 mg DAILY PO Last administered on 09/07/16 08: 56; Start 09/04/16 at 09:00; Stop 09/07/16 at 13:09; Status DC Quetiapine Fumarate (SEROquel) 25 mg TID PO Last administered on 09/13/16 14:13 ; Start 09/04/16 at 21:00; Stop 09/13/16 at 17:59; Status DC Neomycin/ Polymyxin/ Bacitracin (Triple Antibiotic Ointment) 1 pkt BID TP Last administered on 09/15/16 21:15; Start 09/05/16 at 21:00; Stop 09/15/16 at 21:18 ; Status DC Metformin HCl (Glucophage Xr) 500 mg DAILYWBKFT PO Last administered on 08:16; Start 09/07/16 at 08:00; Stop 09/21/16 at 18:24; Status DC Buspirone HCl (Buspar) 5 mg BID PO Last administered on 09/07/16 08:56; Start 09/06/16 at 21:00; Stop 09/07/16 at 13:09; Status DC Buspirone HCl (Buspar) 10 mg BID PO Last administered on 09/21/16 19:35; Start 09/07/16 at 21:00 Escitalopram Oxalate (Lexapro) 10 mg DAILY PO Last administered on 09/21/16 08 :17; Start 09/08/16 at 09:00 Mirtazapine (Remeron) 7.5 mg QHS PO Last administered on 09/18/16 19:59; Start 09/10/16 at 21:00; Stop 09/19/16 at 18:28; Status DC Quetiapine Fumarate (SEROquel) 37.5 mg TID PO Last administered on 09/15/16 11 :32; Start 09/13/16 at 21:00; Stop 09/15/16 at 18:02; Status DC Multivitamins/ Calcium (Thera-M Plus) 1 tab DAILY PO Last administered on 08:17; Start 09/15/16 at 09:00 Risperidone (Risperdal) 0.25 mg BID94 SL Last administered on 09/17/16 16:28; Start 09/16/16 at 09:00; Stop 09/17/16 at 19:17; Status DC Risperidone (Risperdal) 0.25 mg DAILY16 SL Last administered on 09/20/16 16:44 ; Start 09/18/16 at 16:00 Risperidone (Risperdal) 0.5 mg DAILY SL Last administered on 09/21/16 09:39; Start 09/18/16 at 09:00 Mirtazapine (Remeron) 15 mg QHS PO Last administered on 09/21/16 19:35; Start 09/19/16 at 21:00 Trazodone HCl (Desyrel) 50 mg PRN QHS PRN PO insomnia; Start 09/19/16 at 21:00 Metformin HCl (Glucophage) 500 mg BIDWMEALS PO ; Start 09/22/16 at 08:00 Active Scripts Active Reported Lorazepam 0.5 Mg Tablet 0.5 Mg PO PRN Q6HRS PRN Acetaminophen 325 Mg Tablet 650 Mg PO PRN Q4HRS PRN Quetiapine Fumarate 25 Mg Tablet 25 Mg PO BID Multi Vitamin Daily (Multivitamin) 1 Each Tablet 1 Each PO DAILY Lisinopril 10 Mg Tablet 10 Mg PO DAILY Atorvastatin Calcium 20 Mg Tablet 20 Mg PO QHS Aspirin 81 Mg Tab.chew 81 Mg PO DAILY Tylenol (Acetaminophen) 325 Mg Tablet 650 Mg PO Q12HR Diagnosis: Problems: (1) Agitation (2) Anxiety disorder (3) Impulse control disorder (4) Dementia, vascular, with depression (5) Dementia, vascular, with delusions (6) Dementia in Alzheimer's disease with depression (7) Dementia in Alzheimer's disease with delusions KRISSY MONTES MD Sep 21, 2016 21:13
[2016-09-22 06:11] VITALS: BP 131/73
[2016-09-22] MEDS: MULTIVITAMIN with MINERAL TABLET. PO SCH (08:59)
[2016-09-22] MEDS: ESCITALOPRAM 10 MG TABLET. PO SCH (08:59)
[2016-09-22] MEDS: ACETAMINOPHEN 325 MG TABLET PO SCH ×2 (08:59→19:33)
[2016-09-22] MEDS: ASPIRIN 81 MG TAB.CHEW PO SCH (09:00)
[2016-09-22] MEDS: risperiDONE ORAL 1 MG/ML 30ml BOTTLE. SL SCH ×2 (09:00→15:56)
[2016-09-22] MEDS: METFORMIN 500 MG TABLET. PO SCH ×2 (09:00→16:47)
[2016-09-22] MEDS: LISINOPRIL 10 MG TABLET PO SCH (09:00)
[2016-09-22] MEDS: busPIRone 10 MG TABLET. PO SCH ×2 (09:00→19:33)
[2016-09-22] MEDS: OLANZAPINE ZYDIS 5 MG TAB.RAPDIS PO PRN (09:51)
--- NOTE | 2016-09-22 11:19 | PN ---
DATE: 09/20/2016 PSYCHIATRIC PROGRESS NOTE This is a late entry of 09/20/2016 covers elements not covered in my initial note. SUBJECTIVE: Per nursing report, the patient remains confused, somewhat withdrawn, paranoid, but not aggressive. REVIEW OF SYSTEMS: No CV, , pulmonary, eye, ENT system symptoms on review. She wanders into the room of other resident patients and lies on the bed, oblivious away she is. MENTAL STATUS EXAM: Oriented to herself. Insight, judgment, recent and remote memory, attention, concentration, fund of knowledge poor, consistent with her diagnosis mentioned in my initial note. PLAN: Continue current psychotropics mentioned in my initial note. Adjust further as clinically indicated. KRISSY MONTES MD DR: STEVE/bishop JOB#: [id number] / [id number]
--- NOTE | 2016-09-22 11:23 | PN ---
DATE: 09/21/2016 PSYCHIATRIC PROGRESS NOTE This is a late entry of 09/21/2016 covers elements not covered in my initial note. SUBJECTIVE: The patient was staffed at a treatment team meeting the morning of 09/21/2016, seen individually evening of 09/21/2016. She is confused, pleasant, somewhat suspicious at times takes her medications and ice creams, sleeping about 7 hours. No CV, , pulmonary, eye, ENT system symptoms on review. She gets overly stimulated sitting in the dining room with other patients and typically has meals outside the dining room by herself. REVIEW OF SYSTEMS: No eye, ENT, CV, , pulmonary system symptoms on review. MENTAL STATUS EXAM: Oriented to herself. Insight, judgment, recent and remote memory, attention, concentration, fund of knowledge poor, consistent with her diagnosis. LABORATORY DATA: Reviewed. IMPRESSION: Major neurocognitive disorder, Alzheimer, vascular with depression, delusion, behavioral disturbance; anxiety disorder, unspecified; impulse control disorder, unspecified. PLAN: Maintain Risperdal, which is currently total of 0.75 mg a day, Zyprexa p.r.n., Lexapro 10 mg a day, BuSpar 10 b.i.d., Remeron 15 at bedtime, trazodone at bedtime p.r.n. Adjust further as clinically indicated. Ativan p.r.n. will be continued. MAN Sonia MONTES MD DR: STEVE/bishop JOB#: [id number] / [id number]
[2016-09-22 15:49] VITALS: BP 151/81
[2016-09-22] MEDS: ATORVASTATIN CALCIUM 20 MG TABLET PO SCH (19:33)
[2016-09-22] MEDS: MIRTAZAPINE 15 MG TABLET PO SCH (19:33)
--- NOTE | 2016-09-22 21:18 | PDOC ---
Exam Bradley Demential Exam: Bradley Note: Please also refer to the separate dictated note~for this date of service dictated separately.~Patient seen individually. Discussed the patient with Nursing staff reviewed the chart.~Reviewed interim history and current functioning. Reviewed vital signs,~Labs/ Radiology~and current medications noted below. Continue current treatment with the changes noted in the dictated addendum note Assessment: Vital Signs: Vital Signs Date Time Temp Pulse Resp B/P Pulse Ox O2 Delivery O2 Flow Rate FiO2 09/22/16 15:49 97.6 80 18 151/81 95 09/20/16 15:46 Room Air I&O Intake and Output 09/22/16 07:00 Intake Total 600 ml Balance 600 ml Intake Oral 600 ml Labs: Laboratory Tests Test 09/22/16 07:04 09/22/16 11:20 09/22/16 16:39 09/22/16 18:57 Glucose (Fingerstick) 225mg/dL (70-99) H 166mg/dL (70-99) H 114mg/dL (70-99) H 103mg/dL (70-99) H Current Medications: Meds: Current Medications Ziprasidone (Geodon Im) 10 mg 1X ONCE IM Last administered on 08/31/16 20:55 ; Start 08/31/16 at 20:30; Stop 08/31/16 at 20:31; Status DC Acetaminophen (Tylenol) 650 mg PRN Q6HRS PRN PO PAIN / TEMP; Start 08/31/16 at 21:45 Multi-Ingredient Ointment (Analgesic [place]) 1 regino PRN QID PRN TP MUSCLE PAIN; Start 08/31/16 at 21:45 Al Hydroxide/Mg Hydroxide (Mylanta Plus Xs) 15 ml PRN AFTMEALHC PRN PO DYSPEPSIA; Start 08/31/16 at 21:45 Magnesium Hydroxide (Milk Of Magnesia) 2,400 mg PRN QHS PRN PO CONSTIPATION Last administered on 09/10/16 08:03; Start 08/31/16 at 21:45 Lorazepam (Ativan) 0.5 mg PRN Q6HRS PRN PO ANXIETY Last administered on 21:23; Start 08/31/16 at 22:00 Quetiapine Fumarate (SEROquel) 25 mg BID PO Last administered on 09/04/16 07: 47; Start 09/01/16 at 09:00; Stop 09/04/16 at 15:44; Status DC Pneumoccal 13-Valent Conj Vacc (Prevnar 13) 0.5 ml ONCE ONCE VAX IM ; Start at 09:00; Stop 09/01/16 at 09:01; Status UNV Influenza Virus Vaccine Quadrival (Fluarix Quad [id number] Syringe) 0.5 ml ONCE ONCE VAX IM Last administered on 09/01/16 11:36; Start 09/01/16 at 09:00; Stop 09/01/16 at 09:01; Status DC Info (FLU VACCINE per PROTOCOL) 1 ea PRN 1X PRN MC PER PROTOCOL; Start at 23:45; Status Cancel Pneumococcal Polyvalent Vaccine (Do NOT chart on this entry -- for MONITORING) 1 each PRN 1X PRN MC SEE COMMENTS; Start 08/31/16 at 23:45; Status Cancel Pneumococcal Polyvalent Vaccine (Pneumovax 23) 0.5 ml ONCE ONCE VAX IM Last administered on 09/01/16 11:49; Start 09/01/16 at 09:00; Stop 09/01/16 at 09:01 ; Status DC Acetaminophen (Tylenol) 650 mg Q12HR PO Last administered on 09/22/16 19:33; Start 09/01/16 at 09:00 Aspirin (Children'S Aspirin) 81 mg DAILY PO Last administered on 09/22/16 09: 00; Start 09/01/16 at 09:00 Atorvastatin Calcium (Lipitor) 20 mg QHS PO Last administered on 09/22/16 19: 33; Start 09/01/16 at 21:00 Lisinopril (Prinivil) 10 mg DAILY PO Last administered on 09/22/16 09:00; Start 09/01/16 at 09:00 Multivitamins (Thera-Vit) 1 tab DAILY PO Last administered on 09/14/16 09:14; Start 09/01/16 at 09:00; Stop 09/14/16 at 16:38; Status DC Olanzapine (Zyprexa Zydis) 2.5 mg PRN Q2HR PRN PO PSYCHOSIS Last administered on 09/22/16 09:51; Start 09/01/16 at 13:15 Vitamin D (Vitamin D3) 50,000 unit WEEKLY PO Last administered on 09/10/16 08: 08; Start 09/03/16 at 09:00; Stop 10/29/16 at 09:01 Escitalopram Oxalate (Lexapro) 5 mg DAILY PO Last administered on 09/07/16 08: 56; Start 09/04/16 at 09:00; Stop 09/07/16 at 13:09; Status DC Quetiapine Fumarate (SEROquel) 25 mg TID PO Last administered on 09/13/16 14:13 ; Start 09/04/16 at 21:00; Stop 09/13/16 at 17:59; Status DC Neomycin/ Polymyxin/ Bacitracin (Triple Antibiotic Ointment) 1 pkt BID TP Last administered on 09/15/16 21:15; Start 09/05/16 at 21:00; Stop 09/15/16 at 21:18 ; Status DC Metformin HCl (Glucophage Xr) 500 mg DAILYWBKFT PO Last administered on 08:16; Start 09/07/16 at 08:00; Stop 09/21/16 at 18:24; Status DC Buspirone HCl (Buspar) 5 mg BID PO Last administered on 09/07/16 08:56; Start 09/06/16 at 21:00; Stop 09/07/16 at 13:09; Status DC Buspirone HCl (Buspar) 10 mg BID PO Last administered on 09/22/16 09:00; Start 09/07/16 at 21:00; Stop 09/22/16 at 18:02; Status DC Escitalopram Oxalate (Lexapro) 10 mg DAILY PO Last administered on 09/22/16 08 :59; Start 09/08/16 at 09:00 Mirtazapine (Remeron) 7.5 mg QHS PO Last administered on 09/18/16 19:59; Start 09/10/16 at 21:00; Stop 09/19/16 at 18:28; Status DC Quetiapine Fumarate (SEROquel) 37.5 mg TID PO Last administered on 09/15/16 11 :32; Start 09/13/16 at 21:00; Stop 09/15/16 at 18:02; Status DC Multivitamins/ Calcium (Thera-M Plus) 1 tab DAILY PO Last administered on 08:59; Start 09/15/16 at 09:00 Risperidone (Risperdal) 0.25 mg BID94 SL Last administered on 09/17/16 16:28; Start 09/16/16 at 09:00; Stop 09/17/16 at 19:17; Status DC Risperidone (Risperdal) 0.25 mg DAILY16 SL Last administered on 09/22/16 15:56 ; Start 09/18/16 at 16:00 Risperidone (Risperdal) 0.5 mg DAILY SL Last administered on 09/22/16 09:00; Start 09/18/16 at 09:00 Mirtazapine (Remeron) 15 mg QHS PO Last administered on 09/22/16 19:33; Start 09/19/16 at 21:00 Trazodone HCl (Desyrel) 50 mg PRN QHS PRN PO insomnia; Start 09/19/16 at 21:00 Metformin HCl (Glucophage) 500 mg BIDWMEALS PO Last administered on 09/22/16 16:47; Start 09/22/16 at 08:00 Buspirone HCl (Buspar) 10 mg TID PO Last administered on 09/22/16 19:33; Start 09/22/16 at 21:00 Active Scripts Active Reported Lorazepam 0.5 Mg Tablet 0.5 Mg PO PRN Q6HRS PRN Acetaminophen 325 Mg Tablet 650 Mg PO PRN Q4HRS PRN Quetiapine Fumarate 25 Mg Tablet 25 Mg PO BID Multi Vitamin Daily (Multivitamin) 1 Each Tablet 1 Each PO DAILY Lisinopril 10 Mg Tablet 10 Mg PO DAILY Atorvastatin Calcium 20 Mg Tablet 20 Mg PO QHS Aspirin 81 Mg Tab.chew 81 Mg PO DAILY Tylenol (Acetaminophen) 325 Mg Tablet 650 Mg PO Q12HR Diagnosis: Problems: (1) Agitation (2) Anxiety disorder (3) Impulse control disorder (4) Dementia, vascular, with depression (5) Dementia, vascular, with delusions (6) Dementia in Alzheimer's disease with depression (7) Dementia in Alzheimer's disease with delusions KRISSY MONTES MD Sep 22, 2016 21:18
[2016-09-23 06:13] VITALS: BP 134/85
[2016-09-23] MEDS: LISINOPRIL 10 MG TABLET PO SCH (08:11)
[2016-09-23] MEDS: METFORMIN 500 MG TABLET. PO SCH ×3 (08:11→17:00)
[2016-09-23] MEDS: ESCITALOPRAM 10 MG TABLET. PO SCH (08:11)
[2016-09-23] MEDS: ASPIRIN 81 MG TAB.CHEW PO SCH (08:11)
[2016-09-23] MEDS: busPIRone 10 MG TABLET. PO SCH ×3 (08:11→19:27)
[2016-09-23] MEDS: ACETAMINOPHEN 325 MG TABLET PO SCH ×2 (08:12→19:28)
[2016-09-23] MEDS: MULTIVITAMIN with MINERAL TABLET. PO SCH (08:12)
[2016-09-23] MEDS: risperiDONE ORAL 1 MG/ML 30ml BOTTLE. SL SCH ×3 (08:14→17:00)
[2016-09-23 09:25] LABS: BASO % 0 % (0-3); EOS # 0.3 x10^3/uL (0.0-0.7); EOS % 4 % (0-3); HEMATOCRIT 45.1 % (36.0-47.0); HEMOGLOBIN 14.7 g/dL (12.0-15.5); LYMPH # 3.6 x10^3/uL (1.0-4.8); LYMPH % 40 % (24-48); MEAN CORPUSCULAR HEMOGLOBIN 31 pg (25-35); MEAN CORPUSCULAR HGB CONC 33 g/dL (31-37); MEAN CORPUSCULAR VOLUME 96 fL (79-100); MONO # 0.8 x10^3/uL (0.0-1.1); MONO % 9 % (0-9); NEUT # 4.2 x10^3uL (1.8-7.7); NEUT % 47 % (31-73); PLATELET COUNT 253 x10^3/uL (140-400); RED CELL DISTRIBUTION WIDTH 13.2 % (11.5-14.5)
[2016-09-23 09:32] LABS: ALBUMIN 3.4 g/dL (3.4-5.0); ALBUMIN/GLOBULIN RATIO 0.8 (1.0-1.7); CALCIUM 9.7 mg/dL (8.5-10.1); GFR 53.2; POTASSIUM 4.3 mmol/L (3.5-5.1); TOTAL BILIRUBIN 0.8 mg/dL (0.2-1.0); TOTAL PROTEIN 7.8 g/dL (6.4-8.2)
--- NOTE | 2016-09-23 09:55 | PDOC ---
Exam Bradley Demential Exam: Bradley Note: Please also refer to the separate dictated note~for this date of service dictated separately.~Patient seen individually. Discussed the patient with Nursing staff reviewed the chart.~Reviewed interim history and current functioning. Reviewed vital signs,~Labs/ Radiology~and current medications noted below. Continue current treatment with the changes noted in the dictated addendum note Assessment: Vital Signs: Vital Signs Date Time Temp Pulse Resp B/P Pulse Ox O2 Delivery O2 Flow Rate FiO2 09/23/16 08:11 71 134/85 09/23/16 06:13 98.2 16 95 09/20/16 15:46 Room Air I&O Intake and Output 09/23/16 07:00 Intake Total 720 ml Balance 720 ml Intake Oral 720 ml Labs: Laboratory Tests Test 09/22/16 11:20 09/22/16 16:39 09/22/16 18:57 09/23/16 07:40 Glucose (Fingerstick) 166mg/dL (70-99) H 114mg/dL (70-99) H 103mg/dL (70-99) H 122mg/dL (70-99) H Test 09/23/16 09:05 White Blood Count 9.0x10^3/uL (4.0-11.0) Red Blood Count 4.70x10^6/uL (3.50-5.40) Hemoglobin 14.7g/dL (12.0-15.5) Hematocrit 45.1% (36.0-47.0) Mean Corpuscular Volume 96fL (79-100) Mean Corpuscular Hemoglobin 31pg (25-35) Mean Corpuscular Hemoglobin Concent 33g/dL (31-37) Red Cell Distribution Width 13.2% (11.5-14.5) Platelet Count 253x10^3/uL (140-400) Neutrophils (%) (Auto) 47% (31-73) Lymphocytes (%) (Auto) 40% (24-48) Monocytes (%) (Auto) 9% (0-9) Eosinophils (%) (Auto) 4% (0-3) H Basophils (%) (Auto) 0% (0-3) Neutrophils # (Auto) 4.2x10^3uL (1.8-7.7) Lymphocytes # (Auto) 3.6x10^3/uL (1.0-4.8) Monocytes # (Auto) 0.8x10^3/uL (0.0-1.1) Eosinophils # (Auto) 0.3x10^3/uL (0.0-0.7) Basophils # (Auto) 0.0x10^3/uL (0.0-0.2) Sodium Level 144mmol/L (136-145) Potassium Level 4.3mmol/L (3.5-5.1) Chloride Level 105mmol/L (98-107) Carbon Dioxide Level 31mmol/L (21-32) Anion Gap 8 (6-14) Blood Urea Nitrogen 11mg/dL (7-20) Creatinine 1.0mg/dL (0.6-1.0) Estimated GFR (Cockcroft-Gault) 53.2 BUN/Creatinine Ratio 11 (6-20) Glucose Level 190mg/dL (70-99) H Calcium Level 9.7mg/dL (8.5-10.1) Total Bilirubin 0.8mg/dL (0.2-1.0) Aspartate Amino Transferase (AST) 18U/L (15-37) Alanine Aminotransferase (ALT) 31U/L (14-59) Alkaline Phosphatase 109U/L (46-116) Total Protein 7.8g/dL (6.4-8.2) Albumin 3.4g/dL (3.4-5.0) Albumin/Globulin Ratio 0.8 (1.0-1.7) L Current Medications: Meds: Current Medications Ziprasidone (Geodon Im) 10 mg 1X ONCE IM Last administered on 08/31/16t 20:55 ; Start 08/31/16 at 20:30; Stop 08/31/16 at 20:31; Status DC Acetaminophen (Tylenol) 650 mg PRN Q6HRS PRN PO PAIN / TEMP; Start 08/31/16 at 21:45 Multi-Ingredient Ointment (Analgesic [place]) 1 regino PRN QID PRN TP MUSCLE PAIN; Start 08/31/16 at 21:45 Al Hydroxide/Mg Hydroxide (Mylanta Plus Xs) 15 ml PRN AFTMEALHC PRN PO DYSPEPSIA; Start 08/31/16 at 21:45 Magnesium Hydroxide (Milk Of Magnesia) 2,400 mg PRN QHS PRN PO CONSTIPATION Last administered on 09/10/16 08:03; Start 08/31/16 at 21:45 Lorazepam (Ativan) 0.5 mg PRN Q6HRS PRN PO ANXIETY Last administered on 21:23; Start 08/31/16 at 22:00 Quetiapine Fumarate (SEROquel) 25 mg BID PO Last administered on 09/04/16 07: 47; Start 09/01/16 at 09:00; Stop 09/04/16 at 15:44; Status DC Pneumoccal 13-Valent Conj Vacc (Prevnar 13) 0.5 ml ONCE ONCE VAX IM ; Start at 09:00; Stop 09/01/16 at 09:01; Status UNV Influenza Virus Vaccine Quadrival (Fluarix Quad [id number] Syringe) 0.5 ml ONCE ONCE VAX IM Last administered on 09/01/16 11:36; Start 09/01/16 at 09:00; Stop 09/01/16 at 09:01; Status DC Info (FLU VACCINE per PROTOCOL) 1 ea PRN 1X PRN MC PER PROTOCOL; Start at 23:45; Status Cancel Pneumococcal Polyvalent Vaccine (Do NOT chart on this entry -- for MONITORING) 1 each PRN 1X PRN MC SEE COMMENTS; Start 08/31/16 at 23:45; Status Cancel Pneumococcal Polyvalent Vaccine (Pneumovax 23) 0.5 ml ONCE ONCE VAX IM Last administered on 09/01/16 11:49; Start 09/01/16 at 09:00; Stop 09/01/16 at 09:01 ; Status DC Acetaminophen (Tylenol) 650 mg Q12HR PO Last administered on 09/23/16 08:12; Start 09/01/16 at 09:00 Aspirin (Children'S Aspirin) 81 mg DAILY PO Last administered on 09/23/16 08: 11; Start 09/01/16 at 09:00 Atorvastatin Calcium (Lipitor) 20 mg QHS PO Last administered on 09/22/16 19: 33; Start 09/01/16 at 21:00 Lisinopril (Prinivil) 10 mg DAILY PO Last administered on 09/23/16 08:11; Start 09/01/16 at 09:00 Multivitamins (Thera-Vit) 1 tab DAILY PO Last administered on 09/14/16 09:14; Start 09/01/16 at 09:00; Stop 09/14/16 at 16:38; Status DC Olanzapine (Zyprexa Zydis) 2.5 mg PRN Q2HR PRN PO PSYCHOSIS Last administered on 09/22/16 09:51; Start 09/01/16 at 13:15 Vitamin D (Vitamin D3) 50,000 unit WEEKLY PO Last administered on 09/10/16 08: 08; Start 09/03/16 at 09:00; Stop 10/29/16 at 09:01 Escitalopram Oxalate (Lexapro) 5 mg DAILY PO Last administered on 09/07/16 08: 56; Start 09/04/16 at 09:00; Stop 09/07/16 at 13:09; Status DC Quetiapine Fumarate (SEROquel) 25 mg TID PO Last administered on 09/13/16 14:13 ; Start 09/04/16 at 21:00; Stop 09/13/16 at 17:59; Status DC Neomycin/ Polymyxin/ Bacitracin (Triple Antibiotic Ointment) 1 pkt BID TP Last administered on 09/15/16 21:15; Start 09/05/16 at 21:00; Stop 09/15/16 at 21:18 ; Status DC Metformin HCl (Glucophage Xr) 500 mg DAILYWBKFT PO Last administered on 08:16; Start 09/07/16 at 08:00; Stop 09/21/16 at 18:24; Status DC Buspirone HCl (Buspar) 5 mg BID PO Last administered on 09/07/16 08:56; Start 09/06/16 at 21:00; Stop 09/07/16 at 13:09; Status DC Buspirone HCl (Buspar) 10 mg BID PO Last administered on 09/22/16 09:00; Start 09/07/16 at 21:00; Stop 09/22/16 at 18:02; Status DC Escitalopram Oxalate (Lexapro) 10 mg DAILY PO Last administered on 09/23/16 08 :11; Start 09/08/16 at 09:00 Mirtazapine (Remeron) 7.5 mg QHS PO Last administered on 09/18/16 19:59; Start 09/10/16 at 21:00; Stop 09/19/16 at 18:28; Status DC Quetiapine Fumarate (SEROquel) 37.5 mg TID PO Last administered on 09/15/16 11 :32; Start 09/13/16 at 21:00; Stop 09/15/16 at 18:02; Status DC Multivitamins/ Calcium (Thera-M Plus) 1 tab DAILY PO Last administered on 08:12; Start 09/15/16 at 09:00 Risperidone (Risperdal) 0.25 mg BID94 SL Last administered on 09/17/16 16:28; Start 09/16/16 at 09:00; Stop 09/17/16 at 19:17; Status DC Risperidone (Risperdal) 0.25 mg DAILY16 SL Last administered on 09/22/16 15:56 ; Start 09/18/16 at 16:00 Risperidone (Risperdal) 0.5 mg DAILY SL Last administered on 09/23/16 08:14; Start 09/18/16 at 09:00 Mirtazapine (Remeron) 15 mg QHS PO Last administered on 09/22/16 19:33; Start 09/19/16 at 21:00 Trazodone HCl (Desyrel) 50 mg PRN QHS PRN PO insomnia; Start 09/19/16 at 21:00 Metformin HCl (Glucophage) 500 mg BIDWMEALS PO Last administered on 09/23/16 08:11; Start 09/22/16 at 08:00 Buspirone HCl (Buspar) 10 mg TID PO Last administered on 09/23/16 08:11; Start 09/22/16 at 21:00 Active Scripts Active Reported Lorazepam 0.5 Mg Tablet 0.5 Mg PO PRN Q6HRS PRN Acetaminophen 325 Mg Tablet 650 Mg PO PRN Q4HRS PRN Quetiapine Fumarate 25 Mg Tablet 25 Mg PO BID Multi Vitamin Daily (Multivitamin) 1 Each Tablet 1 Each PO DAILY Lisinopril 10 Mg Tablet 10 Mg PO DAILY Atorvastatin Calcium 20 Mg Tablet 20 Mg PO QHS Aspirin 81 Mg Tab.chew 81 Mg PO DAILY Tylenol (Acetaminophen) 325 Mg Tablet 650 Mg PO Q12HR Diagnosis: Problems: (1) Agitation (2) Anxiety disorder (3) Impulse control disorder (4) Dementia, vascular, with depression (5) Dementia, vascular, with delusions (6) Dementia in Alzheimer's disease with depression (7) Dementia in Alzheimer's disease with delusions KRISSY MONTES MD Sep 23, 2016 09:55
[2016-09-23 16:16] VITALS: BP 128/67
[2016-09-23] MEDS: MIRTAZAPINE 15 MG TABLET PO SCH (19:28)
[2016-09-23] MEDS: ATORVASTATIN CALCIUM 20 MG TABLET PO SCH (19:28)
[2016-09-24 06:53] VITALS: BP 139/74
[2016-09-24] MEDS: ASPIRIN 81 MG TAB.CHEW PO SCH (08:11)
[2016-09-24] MEDS: METFORMIN 500 MG TABLET. PO SCH ×2 (08:11→17:04)
[2016-09-24] MEDS: ESCITALOPRAM 10 MG TABLET. PO SCH (08:11)
[2016-09-24] MEDS: busPIRone 10 MG TABLET. PO SCH ×3 (08:11→19:36)
[2016-09-24] MEDS: LISINOPRIL 10 MG TABLET PO SCH (08:12)
[2016-09-24] MEDS: risperiDONE ORAL 1 MG/ML 30ml BOTTLE. SL SCH ×2 (08:12→15:06)
[2016-09-24] MEDS: ACETAMINOPHEN 325 MG TABLET PO SCH ×2 (08:12→19:36)
[2016-09-24] MEDS: MULTIVITAMIN with MINERAL TABLET. PO SCH (08:12)
[2016-09-24] MEDS: CHOLECALCIFEROL (VITAMIN D3) 50,000 UNIT CAPSULE PO SCH (08:13)
--- NOTE | 2016-09-24 14:24 | PN ---
DATE: 09/22/2016 This is a late entry 09/22/2016, covers elements not covered in my initial note. SUBJECTIVE: Overall, the patient was somewhat resistive to cares, the morning of 09/22/2016, combative with peers, received Zyprexa at 9 a.m. before her shower and then was more cooperative. REVIEW OF SYSTEMS: No CV, , pulmonary, eye, ENT system symptoms on review. Reliability poor. MENTAL STATUS EXAM: Oriented to herself. Insight, judgment, recent and remote memory, attention, concentration, fund of knowledge poor, consistent with her diagnosis mentioned in my initial note. PLAN: Increase BuSpar from 10 b.i.d. to t.i.d. Continue Risperdal at current dosage, Ativan and Zyprexa p.r.n., Lexapro 10 mg a day, Remeron 15 mg at bedtime, trazodone p.r.n. Adjust further as clinically indicated. KRISSY MONTES MD DR: STEVE/bishop JOB#: [id number] / [id number]
--- NOTE | 2016-09-24 14:30 | PN ---
DATE: 09/23/2016 PSYCHIATRIC PROGRESS NOTE This is a late entry 09/23/2016, covers elements not covered in my initial note. SUBJECTIVE: Overall, the patient was irritable, grumpy, morning of 09/23/2016; had a good night the previous night, takes her medications in ice cream, was fighting the staff when her blood was drawn, on morning of 09/23/2016. She eats outside the dining room to be in a less noisy environment. She does better away from others. REVIEW OF SYSTEMS: No CV, , pulmonary, eye, ENT system symptoms on review. Reliability poor. MENTAL STATUS EXAM: Oriented to herself. Insight, judgment, recent and remote memory, attention, concentration, fund of knowledge poor, consistent with her diagnosis. LABORATORY DATA: Reviewed. IMPRESSION: Major neurocognitive disorder, Alzheimer, vascular with depression, delusions, behavioral disturbance and rest diagnosis unchanged. PLAN: Continue Risperdal, Lexapro, Remeron, together with trazodone and Zyprexa p.r.n. Adjust further as clinically indicated. KRISSY MONTES MD DR: STEVE/bishop JOB#: [id number] / [id number]
[2016-09-24 16:40] VITALS: BP 152/65
[2016-09-24] MEDS: MIRTAZAPINE 15 MG TABLET PO SCH (19:35)
[2016-09-24] MEDS: ATORVASTATIN CALCIUM 20 MG TABLET PO SCH (19:35)
--- NOTE | 2016-09-24 21:12 | PDOC ---
Exam Bradley Demential Exam: Bradley Note: Please also refer to the separate dictated note~for this date of service dictated separately.~Patient seen individually. Discussed the patient with Nursing staff reviewed the chart.~Reviewed interim history and current functioning. Reviewed vital signs,~Labs/ Radiology~and current medications noted below. Continue current treatment with the changes noted in the dictated addendum note Assessment: Vital Signs: Vital Signs Date Time Temp Pulse Resp B/P Pulse Ox O2 Delivery O2 Flow Rate FiO2 09/24/16 16:40 98.2 77 18 152/65 92 09/24/16 06:53 Room Air I&O Intake and Output 09/24/16 07:00 Intake Total 600 ml Balance 600 ml Intake Oral 600 ml Labs: Laboratory Tests Test 09/24/16 07:19 09/24/16 11:49 Glucose (Fingerstick) 104mg/dL (70-99) H 191mg/dL (70-99) H Current Medications: Meds: Current Medications Ziprasidone (Geodon Im) 10 mg 1X ONCE IM Last administered on 08/31/16 20:55 ; Start 08/31/16 at 20:30; Stop 08/31/16 at 20:31; Status DC Acetaminophen (Tylenol) 650 mg PRN Q6HRS PRN PO PAIN / TEMP; Start 08/31/16 at 21:45 Multi-Ingredient Ointment (Analgesic [place]) 1 regino PRN QID PRN TP MUSCLE PAIN; Start 08/31/16 at 21:45 Al Hydroxide/Mg Hydroxide (Mylanta Plus Xs) 15 ml PRN AFTMEALHC PRN PO DYSPEPSIA; Start 08/31/16 at 21:45 Magnesium Hydroxide (Milk Of Magnesia) 2,400 mg PRN QHS PRN PO CONSTIPATION Last administered on 09/10/16 08:03; Start 08/31/16 at 21:45 Lorazepam (Ativan) 0.5 mg PRN Q6HRS PRN PO ANXIETY Last administered on 21:23; Start 08/31/16 at 22:00 Quetiapine Fumarate (SEROquel) 25 mg BID PO Last administered on 09/04/16 07: 47; Start 09/01/16 at 09:00; Stop 09/04/16 at 15:44; Status DC Pneumoccal 13-Valent Conj Vacc (Prevnar 13) 0.5 ml ONCE ONCE VAX IM ; Start at 09:00; Stop 09/01/16 at 09:01; Status UNV Influenza Virus Vaccine Quadrival (Fluarix Quad [id number] Syringe) 0.5 ml ONCE ONCE VAX IM Last administered on 09/01/16 11:36; Start 09/01/16 at 09:00; Stop 09/01/16 at 09:01; Status DC Info (FLU VACCINE per PROTOCOL) 1 ea PRN 1X PRN MC PER PROTOCOL; Start at 23:45; Status Cancel Pneumococcal Polyvalent Vaccine (Do NOT chart on this entry -- for MONITORING) 1 each PRN 1X PRN MC SEE COMMENTS; Start 08/31/16 at 23:45; Status Cancel Pneumococcal Polyvalent Vaccine (Pneumovax 23) 0.5 ml ONCE ONCE VAX IM Last administered on 09/01/16 11:49; Start 09/01/16 at 09:00; Stop 09/01/16 at 09:01 ; Status DC Acetaminophen (Tylenol) 650 mg Q12HR PO Last administered on 09/24/16 19:36; Start 09/01/16 at 09:00 Aspirin (Children'S Aspirin) 81 mg DAILY PO Last administered on 09/24/16 08: 11; Start 09/01/16 at 09:00 Atorvastatin Calcium (Lipitor) 20 mg QHS PO Last administered on 09/24/16 19: 35; Start 09/01/16 at 21:00 Lisinopril (Prinivil) 10 mg DAILY PO Last administered on 09/24/16 08:12; Start 09/01/16 at 09:00 Multivitamins (Thera-Vit) 1 tab DAILY PO Last administered on 09/14/16 09:14; Start 09/01/16 at 09:00; Stop 09/14/16 at 16:38; Status DC Olanzapine (Zyprexa Zydis) 2.5 mg PRN Q2HR PRN PO PSYCHOSIS Last administered on 09/22/16 09:51; Start 09/01/16 at 13:15 Vitamin D (Vitamin D3) 50,000 unit WEEKLY PO Last administered on 09/24/16 08: 13; Start 09/03/16 at 09:00; Stop 10/29/16 at 09:01 Escitalopram Oxalate (Lexapro) 5 mg DAILY PO Last administered on 09/07/16 08: 56; Start 09/04/16 at 09:00; Stop 09/07/16 at 13:09; Status DC Quetiapine Fumarate (SEROquel) 25 mg TID PO Last administered on 09/13/16 14:13 ; Start 09/04/16 at 21:00; Stop 09/13/16 at 17:59; Status DC Neomycin/ Polymyxin/ Bacitracin (Triple Antibiotic Ointment) 1 pkt BID TP Last administered on 09/15/16 21:15; Start 09/05/16 at 21:00; Stop 09/15/16 at 21:18 ; Status DC Metformin HCl (Glucophage Xr) 500 mg DAILYWBKFT PO Last administered on 08:16; Start 09/07/16 at 08:00; Stop 09/21/16 at 18:24; Status DC Buspirone HCl (Buspar) 5 mg BID PO Last administered on 09/07/16 08:56; Start 09/06/16 at 21:00; Stop 09/07/16 at 13:09; Status DC Buspirone HCl (Buspar) 10 mg BID PO Last administered on 09/22/16 09:00; Start 09/07/16 at 21:00; Stop 09/22/16 at 18:02; Status DC Escitalopram Oxalate (Lexapro) 10 mg DAILY PO Last administered on 09/24/16 08 :11; Start 09/08/16 at 09:00 Mirtazapine (Remeron) 7.5 mg QHS PO Last administered on 09/18/16 19:59; Start 09/10/16 at 21:00; Stop 09/19/16 at 18:28; Status DC Quetiapine Fumarate (SEROquel) 37.5 mg TID PO Last administered on 09/15/16 11 :32; Start 09/13/16 at 21:00; Stop 09/15/16 at 18:02; Status DC Multivitamins/ Calcium (Thera-M Plus) 1 tab DAILY PO Last administered on 08:12; Start 09/15/16 at 09:00 Risperidone (Risperdal) 0.25 mg BID94 SL Last administered on 09/17/16 16:28; Start 09/16/16 at 09:00; Stop 09/17/16 at 19:17; Status DC Risperidone (Risperdal) 0.25 mg DAILY16 SL Last administered on 09/24/16 15:06 ; Start 09/18/16 at 16:00 Risperidone (Risperdal) 0.5 mg DAILY SL Last administered on 09/24/16 08:12; Start 09/18/16 at 09:00 Mirtazapine (Remeron) 15 mg QHS PO Last administered on 09/24/16 19:35; Start 09/19/16 at 21:00 Trazodone HCl (Desyrel) 50 mg PRN QHS PRN PO insomnia; Start 09/19/16 at 21:00 Metformin HCl (Glucophage) 500 mg BIDWMEALS PO Last administered on 09/24/16 17:04; Start 09/22/16 at 08:00 Buspirone HCl (Buspar) 10 mg TID PO Last administered on 09/24/16 19:36; Start 09/22/16 at 21:00 Active Scripts Active Reported Lorazepam 0.5 Mg Tablet 0.5 Mg PO PRN Q6HRS PRN Acetaminophen 325 Mg Tablet 650 Mg PO PRN Q4HRS PRN Quetiapine Fumarate 25 Mg Tablet 25 Mg PO BID Multi Vitamin Daily (Multivitamin) 1 Each Tablet 1 Each PO DAILY Lisinopril 10 Mg Tablet 10 Mg PO DAILY Atorvastatin Calcium 20 Mg Tablet 20 Mg PO QHS Aspirin 81 Mg Tab.chew 81 Mg PO DAILY Tylenol (Acetaminophen) 325 Mg Tablet 650 Mg PO Q12HR Diagnosis: Problems: (1) Agitation (2) Anxiety disorder (3) Impulse control disorder (4) Dementia, vascular, with depression (5) Dementia, vascular, with delusions (6) Dementia in Alzheimer's disease with depression (7) Dementia in Alzheimer's disease with delusions KRISSY MONTES MD Sep 24, 2016 21:12
[2016-09-25 05:56] VITALS: BP 118/71
[2016-09-25] MEDS: METFORMIN 500 MG TABLET. PO SCH ×2 (07:55→17:05)
[2016-09-25] MEDS: MULTIVITAMIN with MINERAL TABLET. PO SCH (07:56)
[2016-09-25] MEDS: busPIRone 10 MG TABLET. PO SCH ×3 (07:56→20:06)
[2016-09-25] MEDS: LISINOPRIL 10 MG TABLET PO SCH (07:56)
[2016-09-25] MEDS: ESCITALOPRAM 10 MG TABLET. PO SCH (07:56)
[2016-09-25] MEDS: ASPIRIN 81 MG TAB.CHEW PO SCH (07:56)
[2016-09-25] MEDS: risperiDONE ORAL 1 MG/ML 30ml BOTTLE. SL SCH ×2 (07:57→15:00)
[2016-09-25] MEDS: ACETAMINOPHEN 325 MG TABLET PO SCH ×2 (07:57→20:08)
[2016-09-25 17:05] VITALS: BP 166/73
--- NOTE | 2016-09-25 19:21 | PDOC ---
Exam Bradley Demential Exam: Bradley Note: Please also refer to the separate dictated note~for this date of service dictated separately.~Patient seen individually. Discussed the patient with Nursing staff reviewed the chart.~Reviewed interim history and current functioning. Reviewed vital signs,~Labs/ Radiology~and current medications noted below. Continue current treatment with the changes noted in the dictated addendum note Assessment: Vital Signs: Vital Signs Date Time Temp Pulse Resp B/P Pulse Ox O2 Delivery O2 Flow Rate FiO2 09/25/16 17:05 98.0 69 16 166/73 94 09/24/16 06:53 Room Air I&O Intake and Output 09/25/16 07:00 Intake Total 1560 ml Balance 1560 ml Intake Oral 1560 ml Labs: Laboratory Tests Test 09/24/16 19:25 09/25/16 07:27 09/25/16 11:27 Glucose (Fingerstick) 245mg/dL (70-99) H 103mg/dL (70-99) H 119mg/dL (70-99) H Current Medications: Meds: Current Medications Ziprasidone (Geodon Im) 10 mg 1X ONCE IM Last administered on 08/31/16 20:55 ; Start 08/31/16 at 20:30; Stop 08/31/16 at 20:31; Status DC Acetaminophen (Tylenol) 650 mg PRN Q6HRS PRN PO PAIN / TEMP; Start 08/31/16 at 21:45 Multi-Ingredient Ointment (Analgesic [place]) 1 regino PRN QID PRN TP MUSCLE PAIN; Start 08/31/16 at 21:45 Al Hydroxide/Mg Hydroxide (Mylanta Plus Xs) 15 ml PRN AFTMEALHC PRN PO DYSPEPSIA; Start 08/31/16 at 21:45 Magnesium Hydroxide (Milk Of Magnesia) 2,400 mg PRN QHS PRN PO CONSTIPATION Last administered on 09/10/16 08:03; Start 08/31/16 at 21:45 Lorazepam (Ativan) 0.5 mg PRN Q6HRS PRN PO ANXIETY Last administered on 21:23; Start 08/31/16 at 22:00 Quetiapine Fumarate (SEROquel) 25 mg BID PO Last administered on 09/04/16 07: 47; Start 09/01/16 at 09:00; Stop 09/04/16 at 15:44; Status DC Pneumoccal 13-Valent Conj Vacc (Prevnar 13) 0.5 ml ONCE ONCE VAX IM ; Start at 09:00; Stop 09/01/16 at 09:01; Status UNV Influenza Virus Vaccine Quadrival (Fluarix Quad [id number] Syringe) 0.5 ml ONCE ONCE VAX IM Last administered on 09/01/16 11:36; Start 09/01/16 at 09:00; Stop 09/01/16 at 09:01; Status DC Info (FLU VACCINE per PROTOCOL) 1 ea PRN 1X PRN MC PER PROTOCOL; Start at 23:45; Status Cancel Pneumococcal Polyvalent Vaccine (Do NOT chart on this entry -- for MONITORING) 1 each PRN 1X PRN MC SEE COMMENTS; Start 08/31/16 at 23:45; Status Cancel Pneumococcal Polyvalent Vaccine (Pneumovax 23) 0.5 ml ONCE ONCE VAX IM Last administered on 09/01/16 11:49; Start 09/01/16 at 09:00; Stop 09/01/16 at 09:01 ; Status DC Acetaminophen (Tylenol) 650 mg Q12HR PO Last administered on 09/25/16 07:57; Start 09/01/16 at 09:00 Aspirin (Children'S Aspirin) 81 mg DAILY PO Last administered on 09/25/16 07: 56; Start 09/01/16 at 09:00 Atorvastatin Calcium (Lipitor) 20 mg QHS PO Last administered on 09/24/16 19: 35; Start 09/01/16 at 21:00 Lisinopril (Prinivil) 10 mg DAILY PO Last administered on 09/25/16 07:56; Start 09/01/16 at 09:00 Multivitamins (Thera-Vit) 1 tab DAILY PO Last administered on 09/14/16 09:14; Start 09/01/16 at 09:00; Stop 09/14/16 at 16:38; Status DC Olanzapine (Zyprexa Zydis) 2.5 mg PRN Q2HR PRN PO PSYCHOSIS Last administered on 09/22/16 09:51; Start 09/01/16 at 13:15 Vitamin D (Vitamin D3) 50,000 unit WEEKLY PO Last administered on 09/24/16 08: 13; Start 09/03/16 at 09:00; Stop 10/29/16 at 09:01 Escitalopram Oxalate (Lexapro) 5 mg DAILY PO Last administered on 09/07/16 08: 56; Start 09/04/16 at 09:00; Stop 09/07/16 at 13:09; Status DC Quetiapine Fumarate (SEROquel) 25 mg TID PO Last administered on 09/13/16 14:13 ; Start 09/04/16 at 21:00; Stop 09/13/16 at 17:59; Status DC Neomycin/ Polymyxin/ Bacitracin (Triple Antibiotic Ointment) 1 pkt BID TP Last administered on 09/15/16 21:15; Start 09/05/16 at 21:00; Stop 09/15/16 at 21:18 ; Status DC Metformin HCl (Glucophage Xr) 500 mg DAILYWBKFT PO Last administered on 08:16; Start 09/07/16 at 08:00; Stop 09/21/16 at 18:24; Status DC Buspirone HCl (Buspar) 5 mg BID PO Last administered on 09/07/16 08:56; Start 09/06/16 at 21:00; Stop 09/07/16 at 13:09; Status DC Buspirone HCl (Buspar) 10 mg BID PO Last administered on 09/22/16 09:00; Start 09/07/16 at 21:00; Stop 09/22/16 at 18:02; Status DC Escitalopram Oxalate (Lexapro) 10 mg DAILY PO Last administered on 09/25/16 07 :56; Start 09/08/16 at 09:00 Mirtazapine (Remeron) 7.5 mg QHS PO Last administered on 09/18/16 19:59; Start 09/10/16 at 21:00; Stop 09/19/16 at 18:28; Status DC Quetiapine Fumarate (SEROquel) 37.5 mg TID PO Last administered on 09/15/16 11 :32; Start 09/13/16 at 21:00; Stop 09/15/16 at 18:02; Status DC Multivitamins/ Calcium (Thera-M Plus) 1 tab DAILY PO Last administered on 07:56; Start 09/15/16 at 09:00 Risperidone (Risperdal) 0.25 mg BID94 SL Last administered on 09/17/16 16:28; Start 09/16/16 at 09:00; Stop 09/17/16 at 19:17; Status DC Risperidone (Risperdal) 0.25 mg DAILY16 SL Last administered on 09/25/16 15:00 ; Start 09/18/16 at 16:00 Risperidone (Risperdal) 0.5 mg DAILY SL Last administered on 09/25/16 07:57; Start 09/18/16 at 09:00 Mirtazapine (Remeron) 15 mg QHS PO Last administered on 09/24/16 19:35; Start 09/19/16 at 21:00 Trazodone HCl (Desyrel) 50 mg PRN QHS PRN PO insomnia; Start 09/19/16 at 21:00 Metformin HCl (Glucophage) 500 mg BIDWMEALS PO Last administered on 09/25/16 17:05; Start 09/22/16 at 08:00 Buspirone HCl (Buspar) 10 mg TID PO Last administered on 09/25/16 14:59; Start 09/22/16 at 21:00 Active Scripts Active Reported Lorazepam 0.5 Mg Tablet 0.5 Mg PO PRN Q6HRS PRN Acetaminophen 325 Mg Tablet 650 Mg PO PRN Q4HRS PRN Quetiapine Fumarate 25 Mg Tablet 25 Mg PO BID Multi Vitamin Daily (Multivitamin) 1 Each Tablet 1 Each PO DAILY Lisinopril 10 Mg Tablet 10 Mg PO DAILY Atorvastatin Calcium 20 Mg Tablet 20 Mg PO QHS Aspirin 81 Mg Tab.chew 81 Mg PO DAILY Tylenol (Acetaminophen) 325 Mg Tablet 650 Mg PO Q12HR Diagnosis: Problems: (1) Agitation (2) Anxiety disorder (3) Impulse control disorder (4) Dementia, vascular, with depression (5) Dementia, vascular, with delusions (6) Dementia in Alzheimer's disease with depression (7) Dementia in Alzheimer's disease with delusions KRISSY MONTES MD Sep 25, 2016 19:21
[2016-09-25] MEDS: ATORVASTATIN CALCIUM 20 MG TABLET PO SCH (20:06)
[2016-09-25] MEDS: MIRTAZAPINE 15 MG TABLET PO SCH (20:06)
--- NOTE | 2016-09-25 22:14 | PN ---
DATE: 09/24/2016 PSYCHIATRIC PROGRESS NOTE This is a late entry 09/24/2016 covers elements not covered in my initial note. SUBJECTIVE: The patient was quite irritable, suspicious, paranoid the evening of 09/23/2016. She was resistive to taking medications only took it from 1 specific nursing staff. During the day on 09/24/2016, however, this is better. REVIEW OF SYSTEMS: No CV, , eye, ENT or pulmonary system symptoms on review. Reliability poor. MENTAL STATUS EXAM: Oriented to herself. Insight, judgment, recent and remote memory, attention, concentration, fund of knowledge poor, consistent with her diagnoses. LABORATORY DATA: Reviewed. IMPRESSION: Major neurocognitive disorder, Alzheimer, vascular with depression, delusion and behavioral disturbance; anxiety disorder, unspecified; impulse control disorder, unspecified. PLAN: Maintain current psychotropics mentioned in my initial note. I have given the patient's age and risk, benefit ratio. Despite the above paranoia, I would prefer not to increase the Risperdal just yet, but we may increase the BuSpar if needed. MAN Sonia MONTES MD DR: STEVE/bishop JOB#: [id number] / [id number]
[2016-09-26 06:14] VITALS: BP 166/80
[2016-09-26] MEDS: busPIRone 10 MG TABLET. PO SCH ×3 (08:56→20:37)
[2016-09-26] MEDS: ASPIRIN 81 MG TAB.CHEW PO SCH (08:56)
[2016-09-26] MEDS: METFORMIN 500 MG TABLET. PO SCH ×2 (08:56→16:28)
[2016-09-26] MEDS: MULTIVITAMIN with MINERAL TABLET. PO SCH (08:57)
[2016-09-26] MEDS: ESCITALOPRAM 10 MG TABLET. PO SCH (08:57)
[2016-09-26] MEDS: LISINOPRIL 10 MG TABLET PO SCH (08:57)
[2016-09-26] MEDS: ACETAMINOPHEN 325 MG TABLET PO SCH ×2 (08:57→20:37)
[2016-09-26] MEDS: risperiDONE ORAL 1 MG/ML 30ml BOTTLE. SL SCH ×2 (08:58→16:28)
[2016-09-26 15:52] VITALS: BP 135/74
[2016-09-26] MEDS: MIRTAZAPINE 15 MG TABLET PO SCH (20:37)
[2016-09-26] MEDS: ATORVASTATIN CALCIUM 20 MG TABLET PO SCH (20:37)
--- NOTE | 2016-09-26 21:02 | PDOC ---
Exam Bradley Demential Exam: Bradley Note: Please also refer to the separate dictated note~for this date of service dictated separately.~Patient seen individually. Discussed the patient with Nursing staff reviewed the chart.~Reviewed interim history and current functioning. Reviewed vital signs,~Labs/ Radiology~and current medications noted below. Continue current treatment with the changes noted in the dictated addendum note Assessment: Vital Signs: Vital Signs Date Time Temp Pulse Resp B/P Pulse Ox O2 Delivery O2 Flow Rate FiO2 09/26/16 15:52 98.0 73 18 135/74 96 09/24/16 06:53 Room Air I&O Intake and Output 09/26/16 07:00 Intake Total 960 ml Balance 960 ml Intake Oral 960 ml Labs: Laboratory Tests Test 09/26/16 07:50 09/26/16 11:21 09/26/16 16:52 09/26/16 19:16 Glucose (Fingerstick) 118mg/dL (70-99) H 86mg/dL (70-99) 117mg/dL (70-99) H 99mg/dL (70-99) Current Medications: Meds: Current Medications Ziprasidone (Geodon Im) 10 mg 1X ONCE IM Last administered on 08/31/16 20:55 ; Start 08/31/16 at 20:30; Stop 08/31/16 at 20:31; Status DC Acetaminophen (Tylenol) 650 mg PRN Q6HRS PRN PO PAIN / TEMP; Start 08/31/16 at 21:45 Multi-Ingredient Ointment (Analgesic [place]) 1 regino PRN QID PRN TP MUSCLE PAIN; Start 08/31/16 at 21:45 Al Hydroxide/Mg Hydroxide (Mylanta Plus Xs) 15 ml PRN AFTMEALHC PRN PO DYSPEPSIA; Start 08/31/16 at 21:45 Magnesium Hydroxide (Milk Of Magnesia) 2,400 mg PRN QHS PRN PO CONSTIPATION Last administered on 09/10/16 08:03; Start 08/31/16 at 21:45 Lorazepam (Ativan) 0.5 mg PRN Q6HRS PRN PO ANXIETY Last administered on 21:23; Start 08/31/16 at 22:00 Quetiapine Fumarate (SEROquel) 25 mg BID PO Last administered on 09/04/16 07: 47; Start 09/01/16 at 09:00; Stop 09/04/16 at 15:44; Status DC Pneumoccal 13-Valent Conj Vacc (Prevnar 13) 0.5 ml ONCE ONCE VAX IM ; Start at 09:00; Stop 09/01/16 at 09:01; Status UNV Influenza Virus Vaccine Quadrival (Fluarix Quad [id number] Syringe) 0.5 ml ONCE ONCE VAX IM Last administered on 09/01/16 11:36; Start 09/01/16 at 09:00; Stop 09/01/16 at 09:01; Status DC Info (FLU VACCINE per PROTOCOL) 1 ea PRN 1X PRN MC PER PROTOCOL; Start at 23:45; Status Cancel Pneumococcal Polyvalent Vaccine (Do NOT chart on this entry -- for MONITORING) 1 each PRN 1X PRN MC SEE COMMENTS; Start 08/31/16 at 23:45; Status Cancel Pneumococcal Polyvalent Vaccine (Pneumovax 23) 0.5 ml ONCE ONCE VAX IM Last administered on 09/01/16 11:49; Start 09/01/16 at 09:00; Stop 09/01/16 at 09:01 ; Status DC Acetaminophen (Tylenol) 650 mg Q12HR PO Last administered on 09/26/16 20:37; Start 09/01/16 at 09:00 Aspirin (Children'S Aspirin) 81 mg DAILY PO Last administered on 09/26/16 08: 56; Start 09/01/16 at 09:00 Atorvastatin Calcium (Lipitor) 20 mg QHS PO Last administered on 09/26/16 20: 37; Start 09/01/16 at 21:00 Lisinopril (Prinivil) 10 mg DAILY PO Last administered on 09/26/16 08:57; Start 09/01/16 at 09:00 Multivitamins (Thera-Vit) 1 tab DAILY PO Last administered on 09/14/16 09:14; Start 09/01/16 at 09:00; Stop 09/14/16 at 16:38; Status DC Olanzapine (Zyprexa Zydis) 2.5 mg PRN Q2HR PRN PO PSYCHOSIS Last administered on 09/22/16 09:51; Start 09/01/16 at 13:15 Vitamin D (Vitamin D3) 50,000 unit WEEKLY PO Last administered on 09/24/16 08: 13; Start 09/03/16 at 09:00; Stop 10/29/16 at 09:01 Escitalopram Oxalate (Lexapro) 5 mg DAILY PO Last administered on 09/07/16 08: 56; Start 09/04/16 at 09:00; Stop 09/07/16 at 13:09; Status DC Quetiapine Fumarate (SEROquel) 25 mg TID PO Last administered on 09/13/16 14:13 ; Start 09/04/16 at 21:00; Stop 09/13/16 at 17:59; Status DC Neomycin/ Polymyxin/ Bacitracin (Triple Antibiotic Ointment) 1 pkt BID TP Last administered on 09/15/16 21:15; Start 09/05/16 at 21:00; Stop 09/15/16 at 21:18 ; Status DC Metformin HCl (Glucophage Xr) 500 mg DAILYWBKFT PO Last administered on 08:16; Start 09/07/16 at 08:00; Stop 09/21/16 at 18:24; Status DC Buspirone HCl (Buspar) 5 mg BID PO Last administered on 09/07/16 08:56; Start 09/06/16 at 21:00; Stop 09/07/16 at 13:09; Status DC Buspirone HCl (Buspar) 10 mg BID PO Last administered on 09/22/16 09:00; Start 09/07/16 at 21:00; Stop 09/22/16 at 18:02; Status DC Escitalopram Oxalate (Lexapro) 10 mg DAILY PO Last administered on 09/26/16 08 :57; Start 09/08/16 at 09:00 Mirtazapine (Remeron) 7.5 mg QHS PO Last administered on 09/18/16 19:59; Start 09/10/16 at 21:00; Stop 09/19/16 at 18:28; Status DC Quetiapine Fumarate (SEROquel) 37.5 mg TID PO Last administered on 09/15/16 11 :32; Start 09/13/16 at 21:00; Stop 3/10/17 at 18:02; Status DC Multivitamins/ Calcium (Thera-M Plus) 1 tab DAILY PO Last administered on 08:57; Start 09/15/16 at 09:00 Risperidone (Risperdal) 0.25 mg BID94 SL Last administered on 09/17/16 16:28; Start 09/16/16 at 09:00; Stop 09/17/16 at 19:17; Status DC Risperidone (Risperdal) 0.25 mg DAILY16 SL Last administered on 09/26/16 16:28 ; Start 09/18/16 at 16:00 Risperidone (Risperdal) 0.5 mg DAILY SL Last administered on 09/26/16 08:58; Start 09/18/16 at 09:00 Mirtazapine (Remeron) 15 mg QHS PO Last administered on 09/26/16 20:37; Start 09/19/16 at 21:00 Trazodone HCl (Desyrel) 50 mg PRN QHS PRN PO insomnia; Start 09/19/16 at 21:00 Metformin HCl (Glucophage) 500 mg BIDWMEALS PO Last administered on 09/26/16 16:28; Start 09/22/16 at 08:00 Buspirone HCl (Buspar) 10 mg TID PO Last administered on 09/26/16 20:37; Start 09/22/16 at 21:00 Active Scripts Active Reported Lorazepam 0.5 Mg Tablet 0.5 Mg PO PRN Q6HRS PRN Acetaminophen 325 Mg Tablet 650 Mg PO PRN Q4HRS PRN Quetiapine Fumarate 25 Mg Tablet 25 Mg PO BID Multi Vitamin Daily (Multivitamin) 1 Each Tablet 1 Each PO DAILY Lisinopril 10 Mg Tablet 10 Mg PO DAILY Atorvastatin Calcium 20 Mg Tablet 20 Mg PO QHS Aspirin 81 Mg Tab.chew 81 Mg PO DAILY Tylenol (Acetaminophen) 325 Mg Tablet 650 Mg PO Q12HR Diagnosis: Problems: (1) Agitation (2) Anxiety disorder (3) Impulse control disorder (4) Dementia, vascular, with depression (5) Dementia, vascular, with delusions (6) Dementia in Alzheimer's disease with depression (7) Dementia in Alzheimer's disease with delusions KRISSY MONTES MD Sep 26, 2016 21:02
[2016-09-27 06:01] VITALS: BP 157/84
[2016-09-27] MEDS: ESCITALOPRAM 10 MG TABLET. PO SCH (08:13)
[2016-09-27] MEDS: ASPIRIN 81 MG TAB.CHEW PO SCH (08:13)
[2016-09-27] MEDS: METFORMIN 500 MG TABLET. PO SCH ×2 (08:13→16:50)
[2016-09-27] MEDS: busPIRone 10 MG TABLET. PO SCH ×3 (08:13→19:19)
[2016-09-27] MEDS: MULTIVITAMIN with MINERAL TABLET. PO SCH (08:14)
[2016-09-27] MEDS: LISINOPRIL 10 MG TABLET PO SCH (08:14)
[2016-09-27] MEDS: ACETAMINOPHEN 325 MG TABLET PO SCH ×2 (08:14→19:20)
[2016-09-27] MEDS: risperiDONE ORAL 1 MG/ML 30ml BOTTLE. SL SCH ×2 (12:47→16:50)
[2016-09-27 16:19] VITALS: BP 137/73
[2016-09-27] MEDS: ATORVASTATIN CALCIUM 20 MG TABLET PO SCH (19:20)
[2016-09-27] MEDS: MIRTAZAPINE 15 MG TABLET PO SCH (19:20)
--- NOTE | 2016-09-27 21:15 | PDOC ---
Exam Bradley Demential Exam: Bradley Note: Please also refer to the separate dictated note~for this date of service dictated separately.~Patient seen individually. Discussed the patient with Nursing staff reviewed the chart.~Reviewed interim history and current functioning. Reviewed vital signs,~Labs/ Radiology~and current medications noted below. Continue current treatment with the changes noted in the dictated addendum note Assessment: Vital Signs: Vital Signs Date Time Temp Pulse Resp B/P Pulse Ox O2 Delivery O2 Flow Rate FiO2 09/27/16 16:19 97.2 62 17 137/73 98 09/24/16 06:53 Room Air I&O Intake and Output 09/27/16 07:00 Intake Total 840 ml Balance 840 ml Intake Oral 840 ml Labs: Laboratory Tests Test 09/27/16 07:20 09/27/16 12:38 09/27/16 19:25 Glucose (Fingerstick) 101mg/dL (70-99) H 101mg/dL (70-99) H 161mg/dL (70-99) H Current Medications: Meds: Current Medications Ziprasidone (Geodon Im) 10 mg 1X ONCE IM Last administered on 08/31/16 20:55 ; Start 08/31/16 at 20:30; Stop 08/31/16 at 20:31; Status DC Acetaminophen (Tylenol) 650 mg PRN Q6HRS PRN PO PAIN / TEMP; Start 08/31/16 at 21:45 Multi-Ingredient Ointment (Analgesic Nelson) 1 regino PRN QID PRN TP MUSCLE PAIN; Start 08/31/16 at 21:45 Al Hydroxide/Mg Hydroxide (Mylanta Plus Xs) 15 ml PRN AFTMEALHC PRN PO DYSPEPSIA; Start 08/31/16 at 21:45 Magnesium Hydroxide (Milk Of Magnesia) 2,400 mg PRN QHS PRN PO CONSTIPATION Last administered on 09/10/16 08:03; Start 08/31/16 at 21:45 Lorazepam (Ativan) 0.5 mg PRN Q6HRS PRN PO ANXIETY Last administered on 21:23; Start 08/31/16 at 22:00 Quetiapine Fumarate (SEROquel) 25 mg BID PO Last administered on 09/04/16 07: 47; Start 09/01/16 at 09:00; Stop 09/04/16 at 15:44; Status DC Pneumoccal 13-Valent Conj Vacc (Prevnar 13) 0.5 ml ONCE ONCE VAX IM ; Start at 09:00; Stop 09/01/16 at 09:01; Status UNV Influenza Virus Vaccine Quadrival (Fluarix Quad 0743-8508 Syringe) 0.5 ml ONCE ONCE VAX IM Last administered on 09/01/16 11:36; Start 09/01/16 at 09:00; Stop 09/01/16 at 09:01; Status DC Info (FLU VACCINE per PROTOCOL) 1 ea PRN 1X PRN MC PER PROTOCOL; Start at 23:45; Status Cancel Pneumococcal Polyvalent Vaccine (Do NOT chart on this entry -- for MONITORING) 1 each PRN 1X PRN MC SEE COMMENTS; Start 08/31/16 at 23:45; Status Cancel Pneumococcal Polyvalent Vaccine (Pneumovax 23) 0.5 ml ONCE ONCE VAX IM Last administered on 09/01/16 11:49; Start 09/01/16 at 09:00; Stop 09/01/16 at 09:01 ; Status DC Acetaminophen (Tylenol) 650 mg Q12HR PO Last administered on 09/27/16 19:20; Start 09/01/16 at 09:00 Aspirin (Children'S Aspirin) 81 mg DAILY PO Last administered on 09/27/16 08: 13; Start 09/01/16 at 09:00 Atorvastatin Calcium (Lipitor) 20 mg QHS PO Last administered on 09/27/16 19: 20; Start 09/01/16 at 21:00 Lisinopril (Prinivil) 10 mg DAILY PO Last administered on 09/27/16 08:14; Start 09/01/16 at 09:00 Multivitamins (Thera-Vit) 1 tab DAILY PO Last administered on 09/14/16 09:14; Start 09/01/16 at 09:00; Stop 09/14/16 at 16:38; Status DC Olanzapine (Zyprexa Zydis) 2.5 mg PRN Q2HR PRN PO PSYCHOSIS Last administered on 09/22/16 09:51; Start 09/01/16 at 13:15 Vitamin D (Vitamin D3) 50,000 unit WEEKLY PO Last administered on 09/24/16 08: 13; Start 09/03/16 at 09:00; Stop 10/29/16 at 09:01 Escitalopram Oxalate (Lexapro) 5 mg DAILY PO Last administered on 09/07/16 08: 56; Start 09/04/16 at 09:00; Stop 09/07/16 at 13:09; Status DC Quetiapine Fumarate (SEROquel) 25 mg TID PO Last administered on 09/13/16 14:13 ; Start 09/04/16 at 21:00; Stop 09/13/16 at 17:59; Status DC Neomycin/ Polymyxin/ Bacitracin (Triple Antibiotic Ointment) 1 pkt BID TP Last administered on 09/15/16 21:15; Start 09/05/16 at 21:00; Stop 09/15/16 at 21:18 ; Status DC Metformin HCl (Glucophage Xr) 500 mg DAILYWBKFT PO Last administered on 08:16; Start 09/07/16 at 08:00; Stop 09/21/16 at 18:24; Status DC Buspirone HCl (Buspar) 5 mg BID PO Last administered on 09/07/16 08:56; Start 09/06/16 at 21:00; Stop 09/07/16 at 13:09; Status DC Buspirone HCl (Buspar) 10 mg BID PO Last administered on 09/22/16 09:00; Start 09/07/16 at 21:00; Stop 09/22/16 at 18:02; Status DC Escitalopram Oxalate (Lexapro) 10 mg DAILY PO Last administered on 09/27/16 08 :13; Start 09/08/16 at 09:00 Mirtazapine (Remeron) 7.5 mg QHS PO Last administered on 09/18/16 19:59; Start 09/10/16 at 21:00; Stop 09/19/16 at 18:28; Status DC Quetiapine Fumarate (SEROquel) 37.5 mg TID PO Last administered on 09/15/16 11 :32; Start 09/13/16 at 21:00; Stop 09/15/16 at 18:02; Status DC Multivitamins/ Calcium (Thera-M Plus) 1 tab DAILY PO Last administered on 08:14; Start 09/15/16 at 09:00 Risperidone (Risperdal) 0.25 mg BID94 SL Last administered on 09/17/16 16:28; Start 09/16/16 at 09:00; Stop 09/17/16 at 19:17; Status DC Risperidone (Risperdal) 0.25 mg DAILY16 SL Last administered on 09/27/16 16:50 ; Start 09/18/16 at 16:00 Risperidone (Risperdal) 0.5 mg DAILY SL Last administered on 09/26/16 08:58; Start 09/18/16 at 09:00 Mirtazapine (Remeron) 15 mg QHS PO Last administered on 09/27/16 19:20; Start 09/19/16 at 21:00 Trazodone HCl (Desyrel) 50 mg PRN QHS PRN PO insomnia; Start 09/19/16 at 21:00 Metformin HCl (Glucophage) 500 mg BIDWMEALS PO Last administered on 09/27/16 16:50; Start 09/22/16 at 08:00 Buspirone HCl (Buspar) 10 mg TID PO Last administered on 09/27/16 19:19; Start 09/22/16 at 21:00 Active Scripts Active Reported Lorazepam 0.5 Mg Tablet 0.5 Mg PO PRN Q6HRS PRN Acetaminophen 325 Mg Tablet 650 Mg PO PRN Q4HRS PRN Quetiapine Fumarate 25 Mg Tablet 25 Mg PO BID Multi Vitamin Daily (Multivitamin) 1 Each Tablet 1 Each PO DAILY Lisinopril 10 Mg Tablet 10 Mg PO DAILY Atorvastatin Calcium 20 Mg Tablet 20 Mg PO QHS Aspirin 81 Mg Tab.chew 81 Mg PO DAILY Tylenol (Acetaminophen) 325 Mg Tablet 650 Mg PO Q12HR Diagnosis: Problems: (1) Agitation (2) Anxiety disorder (3) Impulse control disorder (4) Dementia, vascular, with depression (5) Dementia, vascular, with delusions (6) Dementia in Alzheimer's disease with depression (7) Dementia in Alzheimer's disease with delusions KRISSY MONTES MD Sep 27, 2016 21:15
[2016-09-27] MEDS ORDERED: CHOL-5 PO (23:46)
[2016-09-27] MEDS ORDERED: ESCI10TA PO (23:59)
[2016-09-28] MEDS ORDERED: MAG30ORA2 PO (00:08)
[2016-09-28] MEDS ORDERED: MAGN2400 PO (00:11)
[2016-09-28] MEDS ORDERED: METF500T4 PO (00:13)
[2016-09-28] MEDS ORDERED: METH85CR17 TP (00:17)
[2016-09-28] MEDS ORDERED: MIRT15TA5 PO (00:19)
[2016-09-28] MEDS ORDERED: MIRT15TA3 PO (00:21)
[2016-09-28] MEDS ORDERED: OLAN5TAB5 PO (00:24)
[2016-09-28] MEDS ORDERED: BUSP10TA PO (00:29)
[2016-09-28] MEDS ORDERED: RISP1TAB3 SL (00:34)
[2016-09-28] MEDS ORDERED: RISP1SOL SL (00:37)
[2016-09-28] MEDS ORDERED: TRAZ50TA15 PO (00:38)
--- NOTE | 2016-09-28 01:33 | PN ---
DATE: 09/25/2016 PSYCHIATRIC PROGRESS NOTE This is a late entry for 09/25/2016, covers elements not covered in my initial note. SUBJECTIVE: The patient is combative when blood sugars were withdrawn. She did go outside as the doors were open. Temperature was warm. Compliant with her medications, takes it in ice cream, did well the previous night. REVIEW OF SYSTEMS: No CV, , pulmonary, eye, ENT system symptoms on review. Reliability poor. MENTAL STATUS EXAM: Oriented to herself. Insight, judgment, recent and remote memory, attention, concentration, fund of knowledge poor, consistent with her diagnosis. LABORATORY DATA: Reviewed. IMPRESSION: Major neurocognitive disorder, Alzheimer, vascular with depression, delusion, behavioral disturbance. Rest diagnoses, unchanged. PLAN: Continue current psychotropics. Adjust further as clinically indicated. MAN Sonia MONTES MD DR: STEVE/bishop JOB#: [id number] / [id number]
--- NOTE | 2016-09-28 01:34 | PN ---
DATE: 09/26/2016 SUBJECTIVE: This is a late entry 09/26/2016 covers elements not covered in my initial note. Overall, the patient had a good day per nursing report. REVIEW OF SYSTEMS: No eye, ENT, CV, , or pulmonary system symptoms on review. Reliability poor. MENTAL STATUS EXAM: Oriented to herself. Insight, judgment, recent and remote memory, attention, concentration, fund of knowledge poor, consistent with her diagnosis mentioned in my initial note. PLAN: Continue current psychotropics mentioned in my initial note. Adjust further as clinically indicated, but these seem to be adequate for now as she is doing quite a bit better. MAN Sonia MONTES MD DR: STEVE/bishop JOB#: [id number] / [id number]
[2016-09-28 06:21] VITALS: BP 182/89
[2016-09-28] MEDS: ESCITALOPRAM 10 MG TABLET. PO SCH (08:07)
[2016-09-28] MEDS: busPIRone 10 MG TABLET. PO SCH (08:07)
[2016-09-28] MEDS: risperiDONE ORAL 1 MG/ML 30ml BOTTLE. SL SCH (08:07)
[2016-09-28] MEDS: METFORMIN 500 MG TABLET. PO SCH (08:08)
[2016-09-28] MEDS: LISINOPRIL 10 MG TABLET PO SCH (08:08)
[2016-09-28] MEDS: MULTIVITAMIN with MINERAL TABLET. PO SCH (08:08)
[2016-09-28] MEDS: ASPIRIN 81 MG TAB.CHEW PO SCH (08:08)
[2016-09-28] MEDS: ACETAMINOPHEN 325 MG TABLET PO SCH (08:11)
[2016-09-28 08:23] VITALS: BP 182/89
[2016-09-28] MEDS ORDERED: LISINOPRIL 20 MG TABLET PO SCH (09:00)
--- NOTE | 2016-10-02 10:23 | PN ---
DATE: 09/27/2016 PSYCHIATRIC PROGRESS NOTE This is a late entry for 09/27/2016, covers elements not covered in my initial note. SUBJECTIVE: The patient remains confused, compliant with the medication, takes them crushed in pudding. REVIEW OF SYSTEMS: No CV, , pulmonary, eye, ENT system symptoms on review. MENTAL STATUS EXAM: Oriented to herself. Insight, judgment, recent and remote memory, attention, concentration, fund of knowledge poor, consistent with her diagnosis mentioned in my initial note. PLAN: Continue current psychotropics as mentioned in my initial note; possible transition to a lower level of care on 09/28/2016. MAN Sonia MONTES MD DR: STEVE/bishop JOB#: [id number] / [id number]
--- NOTE | 2016-10-02 10:24 | DS ---
DATE OF DISCHARGE: 09/28/2016 DISCHARGE SUMMARY/PSYCHIATRIC PROGRESS NOTE REASON FOR ADMISSION: Please refer to the admission history for details. Briefly, the patient is an 81-year-old female referred to us from [facility] by her primary care physician on account of marked combative behavior with staff during cares. Refusing all cares and medications, agitated, combative, confused within the context of her dementia with delusion, depression, and behavioral disturbance. SIGNIFICANT FINDINGS AND CLINICAL COURSE: Following admission, the patient was seen daily individually by myself, followed medically per Dr. Valdez/Dr. Ward. UA was negative. Adjustments were made in her psychotropics for a marked paranoia, irritability, lability, agitation. She seemed to respond to a combination of Risperdal liquid 0.5 mg in the morning, 0.25 at 1600 along with Zyprexa p.r.n., Ativan p.r.n., Lexapro 10 mg a day, BuSpar 10 t.i.d., Remeron 15 at bedtime, trazodone 50 at bedtime p.r.n., may repeat x 1 for insomnia. Prior to discharge on 09/28/2016, temperature 97.4, BP 138/70, respirations 18, pulse 68. REVIEW OF SYSTEMS: No CV, , pulmonary, eye, ENT system symptoms on review. Reliability poor. MENTAL STATUS EXAM: Oriented to herself. Insight, judgment, recent and remote memory, attention, concentration, fund of knowledge poor, consistent with her diagnoses mentioned in my initial note. DISCHARGE DIAGNOSES: Major neurocognitive disorder, Alzheimer, vascular with depression, delusion, behavioral disturbance; anxiety disorder, unspecified; impulse control disorder, unspecified. Rest diagnoses unchanged from admission. DISCHARGE MEDICATIONS: Please refer to [facility]. DISCHARGE INSTRUCTIONS: Outpatient psychiatric and medical followup at the longterm. Time for discharge day management greater than 30 minutes. KRISSY MONTES MD DR: STEVE/bishop JOB#: [id number] / [id number]
== END 2016-09-28 10:30 | DRG 884 ==
LOC: ER 18:56 → GEROPSY 20:46
PROVIDERS: ADMIT Psychiatry & Neurology Psychiatry; ATTEND Psychiatry & Neurology Psychiatry
DX: F01.51 Vascular dementia, unspecified severity, with behavioral disturbance (principal); G30.9 Alzheimer's disease, unspecified; E03.9 Hypothyroidism, unspecified; E11.22 Type 2 diabetes mellitus with diabetic chronic kidney disease; E11.65 Type 2 diabetes mellitus with hyperglycemia; E61.1 Iron deficiency; F22 Delusional disorders; F32.9 Major depressive disorder, single episode, unspecified; F41.9 Anxiety disorder, unspecified; F42.9 Obsessive-compulsive disorder, unspecified; F63.9 Impulse disorder, unspecified; H40.9 Unspecified glaucoma; N18.9 Chronic kidney disease, unspecified; Z66 Do not resuscitate; Z86.711 Personal history of pulmonary embolism; Z86.73 Personal history of transient ischemic attack (TIA), and cerebral infarction without residual deficits; I25.2 Old myocardial infarction; Z91.81 History of falling; Z88.2 Allergy status to sulfonamides; Z88.8 Allergy status to other drugs, medicaments and biological substances; Z79.899 Other long term (current) drug therapy
CPT/HCPCS: 36415; 71010; 80053; 80061; 81001; 82010; 82140; 82306; 82607; 82947; 83036; 83540; 83550; 83735; 84436; 84443; 84480; 85027; 86592; 86593; 90686; 90732; 93005; 96372; J3486; 99285-25